=== PATIENT | male | born 1955 | race Caucasian/White ===

== ENCOUNTER 2020-07-08 11:11 | Outpatient (REF) | payer MEDICARE, SELFPAY ==
--- NOTE | 2020-07-08 | US_ITS ---
EXAMINATION: US RETROPERITONEAL LIMITED (RENAL ONLY) CLINICAL INFORMATION: Renal calculi. Renal cyst. COMPARISON: Renal ultrasound 12/11/2018 and 11/23/2017. CT abdomen and pelvis 11/19/2009. TECHNIQUE: Real-time imaging of the kidneys. FINDINGS: RIGHT KIDNEY: 11.3 x 5.5 x 6.2 cm (SAG x AP x TRV). The kidney is normal in size, contour, and echogenicity. Renal cortical thickness is normal. No visible renal calculi. No hydronephrosis. There is a simple cyst upper pole measuring 2.0 x 1.9 x 2.0 cm. Prior measurements are 1.6 x 1.5 x 1.5 cm on ultrasound 2019. LEFT KIDNEY: 11.9 x 6.0 x 5.8 cm (SAG x AP x TRV). The kidney is normal in size, contour, and echogenicity. Renal cortical thickness is normal. No visible calculi or focal parenchymal lesions. No hydronephrosis. IMPRESSION: 1. No hydronephrosis or caliectasis. No visible renal calculi. 2. Simple cyst upper pole right kidney 2.0 cm.
== END 2020-07-08 11:12 | disposition home or self-care (01) ==
LOC: HO.HMGCX 11:11
PROVIDERS: PCP Nurse Practitioner Family; Visit Provider Urology
DX: N28.1 Cyst of kidney, acquired (principal); Z87.442 Personal history of urinary calculi
CPT/HCPCS: 76775

== ENCOUNTER 2020-07-13 12:30 | Outpatient (REF) | payer MEDICARE, SELFPAY | END 2020-07-13 12:31 | disposition home or self-care (01) | LOC: HO.HMGCLDS 12:30 | PROVIDERS: Absent Provider Internal Medicine; PCP Nurse Practitioner Family; Visit Provider Urology | DX: Z20.828 Contact with and (suspected) exposure to other viral communicable diseases (principal); N40.1 Benign prostatic hyperplasia with lower urinary tract symptoms | CPT/HCPCS: 84153; 87635 ==

== ENCOUNTER 2021-01-25 15:17 | Inpatient (IN) | payer MEDICARE, SELFPAY ==
--- NOTE | ~2021-01-25 | US_ITS ---
EXAMINATION: US VENOUS ULTRASOUND WITH DOPPLER LOWER EXTREMITY, LEFT CLINICAL INFORMATION: Swelling pain evaluate for DVT COMPARISON: None TECHNIQUE: Ultrasound of the deep veins is performed from the hip to the calf with compression sonography and color and pulse Doppler assessment. Spectral analysis with color-flow imaging is performed. FINDINGS: There is normal venous compression and respiratory variation and augmented flow. The visualized common femoral vein, superficial femoral vein, profunda femoral vein, popliteal vein, and the trifurcation region shows no evidence of deep venous thrombosis. There is no significant popliteal fossa cyst. Lymph node measuring 2.4 x 1 x 1.9 cm likely benign and reactive. If the patient's symptoms persist, followup ultrasound in 5 days 7 days might be of value to exclude proximal propagation from a non-visualized calf vein. US/US venous duplex LE IMPRESSION: No DVT demonstrated in the left lower extremity.
--- NOTE | ~2021-01-25 | CT_ITS ---
EXAMINATION: CT ABDOMEN AND PELVIS WITH CONTRAST CLINICAL INFORMATION: Vomiting and alcohol use. COMPARISON: Renal ultrasound 07/08/[address] abdomen pelvis 11/19/2009 TECHNIQUE: Multidetector volumetric images were obtained from the superior aspect of the liver through the pubic symphysis following administration 85 mL of Omnipaque 350 intravenous contrast. Sagittal and coronal reformatted images were obtained on the technologist's workstation. Oral contrast: No This CT examination was performed using dose optimization techniques as appropriate, variously including the following: *Automated exposure control *Adjustment of mA and/or kV according to patient size (this includes techniques or standardized protocols for targeted exams where dose is matched to indication/reason for exam; i.e. extremities or head) *Use of iterative reconstruction technique DLP: 712 mGy-cm FINDINGS: Visualized lung bases demonstrate mild dependent atelectasis. The liver is normal in size but demonstrates severely decreased attenuation diffusely. The gallbladder is normal in appearance. Fatty atrophy of the pancreas. The spleen and adrenal glands are unremarkable. Symmetrically enhancing kidneys without hydronephrosis. 2 cm right renal cyst again identified. Small hiatal hernia. Normal caliber loops of small and large bowel. Moderate colonic diverticulosis without CT evidence to suggest active diverticulitis. Normal appendix. Normal caliber abdominal aorta. No retroperitoneal lymphadenopathy. The bladder is mildly distended but otherwise normal in appearance. The prostate gland is normal in size. No gross free pelvic fluid. Small bilateral fat-containing inguinal hernias. Shotty bilateral inguinal lymph nodes. Mild diffuse degenerative changes of. Tiny sacral sclerotic density is stable and therefore benign. CT/CT abdomen pelvis w con IMPRESSION: 1. Severely decreased liver attenuation suggesting hepatic steatosis. Correlation with liver enzymes recommended. 2. Small right renal cyst. 3. Moderate colonic diverticulosis without CT evidence to suggest active diverticulitis.
--- NOTE | ~2021-01-25 | XR_ITS ---
EXAMINATION: XR CHEST CLINICAL INFORMATION: Dizziness COMPARISON: None TECHNIQUE: 2 views of the chest were obtained. FINDINGS: The lungs are well-expanded and clear. The heart size and pulmonary vascularity is normal. There is mild spondylosis dorsal spine. No lytic process. XR/XR chest 2V IMPRESSION: No acute cardiopulmonary process seen.
--- NOTE | ~2021-01-25 | CT_ITS ---
EXAMINATION: CT HEAD WITHOUT CONTRAST CLINICAL INFORMATION: Dizziness. COMPARISON: None TECHNIQUE: Contiguous axial imaging was performed from the skull base to vertex without intravenous administration of contrast. This CT examination was performed using dose optimization techniques as appropriate, variously including the following: *Automated exposure control *Adjustment of mA and/or kV according to patient size (this includes techniques or standardized protocols for targeted exams where dose is matched to indication/reason for exam; i.e. extremities or head) *Use of iterative reconstruction technique DLP: 1521 mGy-cm FINDINGS: There is no evidence of acute intracranial hemorrhage or territorial infarction. No abnormal mass effect or midline shift is seen. Chin to white matter differentiation is well preserved. No extra-axial fluid collections are identified. The ventricles are normal in size. There is mild periventricular hypoattenuation especially in frontoparietal lobes without mass effect. The osseous structures and soft tissues are normal. There is a small polyp or retention cyst floor of left maxillary sinus. Rest of the paranasal sinuses and mastoid air cells are well-aerated.. CT/CT head/brain wo con IMPRESSION: No acute intracranial process seen.
[2021-01-25 15:29] VITALS: BP 151/92; BP 155/107; PULSE 94; PULSE 96; RESP 20; TEMP 37.4; O2SAT 95; O2SAT 98; BMI 32.5
--- NOTE | 2021-01-25 15:48 | ECG_ITS ---
Test Reason : ABDOMINAL PAIN Blood Pressure : / mmHG Vent. Rate : 093 BPM Atrial Rate : 093 BPM P-R Int : 162 ms QRS Dur : 096 ms QT Int : 378 ms P-R-T Axes : 064 000 051 degrees QTc Int : 469 ms Normal sinus rhythm Nonspecific T wave abnormality Borderline ECG Abnormal ECG When compared with ECG of 04-NOV-2014 22:25, T wave inversion now evident in Lateral leads Referred By: Candice Reece Electronically Signed By:JORGE MCKINNEY
--- NOTE | 2021-01-25 15:51 | ED_ITS ---
HPI - Abdominal Pain General Chief Complaint: Abdominal Pain Stated Complaint: ABD PAIN,NAUSEA Time Seen by Provider: 01/25/21 15:23 Source: patient Mode of arrival: ambulatory Limitations: no limitations History of Present Illness HPI narrative: 65-year-old male with a past medical history of GERD, alcohol use here with complaints of intermittent abdominal pain, vomiting, diarrhea for the last 2-3 weeks. The patient is also complaining of feeling lightheaded with position changes and moving around. He denies any headache, vision changes, chest pain, shortness of breath, cough. The patient tells me he drinks about 1 bottle of wine every day and occasionally he has a beer. His last drink was this morning. He denies any withdrawal symptoms from alcohol in the past. Seen at Urgent Care and sent in for further evaluation. Related Data Home Medications Medication Instructions Recorded Confirmed omeprazole 20 mg capsule,delayed 20 mg PO DAILY 01/25/21 01/25/21 release Allergies Allergy/AdvReac Type Severity Reaction Status Date / Time amoxicillin [AMOXICILLIN] Allergy Unknown UNKNOWN, Verified 01/25/21 19:10 nausea and vomiting penicillin V Allergy Unknown rash Verified 01/25/21 19:10 Penicillins [PENICILLINS] Allergy Unknown UNKNOWN Verified 01/25/21 19:10 Erythromycin Allergy Unknown Rash Uncoded 01/25/21 19:10 Review of Systems Review of Systems Yes all other systems are reviewed and are negative Constitutional: Reports no additional constitutional complaints, Denies body ache(s), Denies chills, Denies fever(s), Denies headache(s) and Denies weakness Eyes: Reports no additional eye complaints and Denies change in vision Reports system reviewed and no additional complaints, except as documented, Reports dizziness, Denies headache(s), Denies nasal congestion, Denies nasal discharge and Denies neck pain Cardiovascular: Reports no additional cardiovascular complaints, Denies chest pain, Denies leg edema and Denies dyspnea Respiratory: Reports no additional respiratory complaints, Denies cough and Denies dyspnea Gastrointestinal: Reports no additional gastrointestinal complaints, Reports abdominal pain, Denies melena, Denies hematochezia, Denies coffee ground emesis, Reports diarrhea, Reports nausea, Reports vomiting and Denies hematemesis Genitourinary: Denies urinary incontinence Musculoskeletal: Reports no additional musculoskeletal complaints, Denies back pain, Denies arthralgias, Denies joint swelling, Denies neck pain, Denies numbness and Denies tingling Skin/Breast: Reports system reviewed and no additional complaints, except as doc u and Denies rash Reports system reviewed and no additional complaints, except as documented, Denies Abnormal speech present, Reports dizziness, Denies headache(s), Denies numbness, Denies tingling and Denies weakness Physical Exam Vital Signs: Vital Signs: Last Vital Signs Temp 99.2 F 01/25/21 19:06 Pulse 96 01/25/21 19:06 Resp 24 H 01/25/21 19:06 BP 145/80 H 01/25/21 19:06 Pulse Ox 98 01/25/21 19:06 Body Mass Index 32.5 Const: General: cooperative, healthy appearing, comfortable and no acute distress Orientation/consciousness: patient oriented x3 Limitations: no limitations HENMT: Head: Yes normal to inspection Ears: hearing grossly normal bilaterally General nose exam: Normal external nose present Face and sinus: Yes normal facial exam Mouth: Normal oral and palatal mucosa present Throat: Yes posterior oropharynx normal Eyes: General: appearance normal, both eyes and all related structures Conjunctivae: conjunctival abnormal (mild icteria) Pupils: Equal, round and reactive pupils present Neck: Neck: Yes normal visual inspection Chest: Chest palpation & inspection: normal inspection of the chest Resp: Effort & Inspection: normal respiratory effort Auscultation: clear to auscultation bilaterally Cardio: Rate: regular rate Rhythm: regular rhythm Peripheral pulses: Peripheral pulses 2+ throughout GI: Other: mild distention Inspection: Yes normal to inspection Palpation (GI): Firmness to palpation present (GI) and nontender Auscultation: normal bowel sounds Back/Spine/Pelvis: Thoracic/Lumbar Spine: thoracic and lumbar spine normal to inspection Skin: General skin exam: no rashes or lesions noted Neuro: Other: +mild tremor bilateral hands General: patient oriented x3, no focal motor deficits and normal sensation to monofilament Cranial nerves: Yes CN's II-XII intact bilaterally, Yes Equal, round and reactive pupils present, Yes Bilaterally intact EOM present, Yes Nystagmus not present, Yes Normal facial strength present and Yes Midline tongue present Cognition (Neuro): normal cognition Speech: No Abnormal speech present Gait exam (Neuro): Other gait observations present (unable to assess-patient unable to perform) Motor exam (neuro): 5/5 motor strength present throughout Sensory Exam: Normal double simultaneous stimulation for sensation Coordination: [id number] test norm al and [id number] test normal Extrem: General: Yes normal to inspection, Yes no calf tenderness and Yes edema (left calf swelling, discoloration of the skin. +pulses distal) Course Course Course Narrative: 65-year-old male with a past medical history of GERD, alcohol use here with complaints of intermittent abdominal pain with associated vomiting and diarrhea times several weeks with dizziness which is worse with position changes for the last few weeks as well. Seen at Urgent Care and sent in for further evaluation to the emergency department. There was concern that he may be withdrawing from alcohol due to reports of daily use with heart rate of 105 and blood pressure 182/104 noted at Urgent Care with mild tremor bilaterally. Neuro exam is benign with the exception of being unable to assess the patient's gait. He was able to stay and was very unsteady and complained feeling very dizzy and lightheaded. His abdomen is mildly distended with some slight scleral icterus. No focal abdominal pain on exam. Also does have some left lower extremity swelling with discoloration. No tenderness. Will check ultrasound to rule out DVT. Will need labs, EKG, orthostatics, chest x-ray, CT head 1756-ultrasound negative for DVT. Labs show hyponatremia, hypochloremia. La ctic acid elevated. No leukocytosis or fever. This is from dehydration and not infection. Will discuss with nephrology in regards to the hyponatremia. Patient has received 1 L of normal saline. Added on a serum osmolality, urine studies. ? Secondary to GI losses versus alcohol use. 1839-spoke to Dr. Shi from Nephrology. Recommended fluid restriction 1500 cc per 24 hours. Recommended rechecking sodium after fluid bolus and then routinely after. 2014-CT head negative. Ct A/P shows hepatic steatosis otherwise negative. Abdominal pain and vomiting likely secondary to gastritis from alcohol abuse. Dizziness described as lightheadedness likely secondary to hyponatremia and electrolyte disturbance. Repeat sodium pending. Call out to medicine to admit. 2039-Discussed with Dr Parks who accepted admission. MDM - Abdominal Pain MDM Narrative Medical decision making narrative: ich vs lesion vs cva, electrolyte abnormality, anemia, orthostatic hypotension DVT Differential Diagnosis Differential diagnosis: Likely gastroenteritis, gastritis and pancreatitis Medical Records Attestation: I reviewed the patient's medical records. Lab Data Attestation: I reviewed the patient's lab results. Result diagrams: 01/25/21 16:19 01/25/21 16:19 Labs: Lab Results 01/25/21 01/25/21 01/25/21 Range/Units 16:19 16:19 16:19 WBC 5.9 (4.8-10.8) X10*3/uL RBC 4.32 L (4.60-5.80) X10*6/uL Hgb 13.7 L (14.0-18.0) g/dl Hct 38.0 L (42-52) % MCV 88.0 (80-98) fL MCH 31.7 (27.0-33.0) pg MCHC 36.1 H (31.0-36.0) g/dl RDW 13.2 (11.0-16.0) % Plt Count 75 L (160-400) X10*3/uL MPV 9.9 (9.4-12.4) fL Immature Gran % (Auto) 0.7 H (0.0-0.4) % Neut % (Auto) 89.6 H (45-73) % Lymph % (Auto) 3.9 L (20-40) % [facility] [place] [facility] % (Auto) 5.8 (2-11) % Eos % (Auto) 0.0 (0-4) % Baso % (Auto) 0.0 (0-2) % Lymph # (Auto) 0.2 L (1.2-4.9) X10*3/uL [facility] [place] [facility] # (Auto) 0.3 (0.1-1.2) X10*3/uL Eos # (Auto) 0.0 (0.0-0.4) X10*3/uL Baso # (Auto) 0.0 (0.0-0.2) X10*3/uL Abs Immat Gran (auto) 0.04 H (0.00-0.03) X10*3/uL Absolute Neuts (auto) 5.3 (2.0-8.3) X10*3/uL Absolute Nucleated RBC 0.000 (0.0-0.012) X10*3/uL Nucleated RBC % (auto) 0.0 (0.0-0.2) /100WBC Smear Tech's Comments VERIFIED PT (10.8-13.0) SEC INR (0.9-1.1) APTT (24.1-38.0) SEC Sodium 122 L (135-145) mmol/L Potassium 4.2 (3.3-5.1) mmol/L Chloride 78 L (96-108) mmol/L Carbon Dioxide 27 (22-29) mmol/L Anion Gap 21 H (12-20) BUN 8 L (9-16) mg/dL Creatinine 0.72 (0.5-1.4) mg/dL Estim Creat Clear Calc 112.5 Estimated GFR > 60 Random Glucose 112 (60-115) mg/dL Osmolality (281-305) mosm/kg Lactic Acid (0.5-2.0) mmol/L Lactic Acid Fup @ 2Hr (0.5-2.0) mmol/L Calcium 8.6 (8.4-10.2) mg/dL Phosphorus 3.7 (2.7-4.5) mg/dL Magnesium 1.8 (1.6-2.6) mg/dL Total Bilirubin 1.3 H (0.0-1.0) mg/dL Direct Bilirubin 0.7 H (0.0-0.5) mg/dL AST 120 H (5-37) U/L ALT 94 H (0-40) U/L Alkaline Phosphatase 75 (39-117) U/L Troponin I High Sens 6.8 (<3.5-35.0) ng/L B-Natriuretic Peptide 20 (<100) pg/mL Total Protein 6.7 (6.5-8.0) g/dL Albumin 4.1 (3.5-5.0) g/dL Lipase 28 (8-78) U/L Salicylates (15-30) mg/dL Acetaminophen (<30) mcg/mL Ethyl Alcohol mg/dL COVID-19 (ANOOP) (Negative) COVID-19 Clin Com 01/25/21 01/25/21 01/25/21 Range/Units 16:19 16:19 16:19 WBC (4.8-10.8) X10*3/uL RBC (4.60-5.80) X10*6/uL Hgb (14.0-18.0) g/dl Hct (42-52) % MCV (80-98) fL MCH (27.0-33.0) pg MCHC (31.0-36.0) g/dl RDW (11.0-16.0) % Plt Count (160-400) X10*3/uL MPV (9.4-12.4) fL Immature Gran % (Auto) (0.0-0.4) % Neut % (Auto) (45-73) % Lymph % (Auto) (20-40) % [facility] % (Auto) (2-11) % Eos % (Auto) (0-4) % Baso % (Auto) (0-2) % Lymph # (Auto) (1.2-4.9) X10*3/uL [facility] # (Auto) (0.1-1.2) X10*3/uL Eos # (Auto) (0.0-0.4) X10*3/uL Baso # (Auto) (0.0-0.2) X10*3/uL Abs Immat Gran (auto) (0.00-0.03) X10*3/uL Absolute Neuts (auto) (2.0-8.3) X10*3/uL Absolute Nucleated RBC (0.0-0.012) X10*3/uL Nucleated RBC % (auto) (0.0-0.2) /100WBC Smear Tech's Comments PT 11.7 (10.8-13.0) SEC INR 1.0 (0.9-1.1) APTT 28.7 (24.1-38.0) SEC Sodium (135-145) mmol/L Potassium (3.3-5.1) mmol/L Chloride (96-108) mmol/L Carbon Dioxide (22-29) mmol/L Anion Gap (12-20) BUN (9-16) mg/dL Creatinine (0.5-1.4) mg/dL Estim Creat Clear Calc Estimated GFR Random Glucose (60-115) mg/dL Osmolality 272 L (281-305) mosm/kg Lactic Acid (0.5-2.0) mmol/L Lactic Acid Fup @ 2Hr (0.5-2.0) mmol/L Calcium (8.4-10.2) mg/dL Phosphorus (2.7-4.5) mg/dL Magnesium (1.6-2.6) mg/dL Total Bilirubin (0.0-1.0) mg/dL Direct Bilirubin (0.0-0.5) mg/dL AST (5-37) U/L ALT (0-40) U/L Alkaline Phosphatase (39-117) U/L Troponin I High Sens (<3.5-35.0) ng/L B-Natriuretic Peptide (<100) pg/mL Total Protein (6.5-8.0) g/dL Albumin (3.5-5.0) g/dL Lipase (8-78) U/L Salicylates (15-30) mg/dL Acetaminophen (<30) mcg/mL Ethyl Alcohol 65 mg/dL COVID-19 (ANOOP) (Negative) COVID-19 Clin Com 01/25/21 01/25/21 01/25/21 Range/Units 16:20 16:20 19:15 WBC (4.8-10.8) X10*3/uL RBC (4.60-5.80) X10*6/uL Hgb (14.0-18.0) g/dl Hct (42-52) % MCV (80-98) fL MCH (27.0-33.0) pg MCHC (31.0-36.0) g/dl RDW (11.0-16.0) % Plt Count (160-400) X10*3/uL MPV (9.4-12.4) fL Immature Gran % (Auto) (0.0-0.4) % Neut % (Auto) (45-73) % Lymph % (Auto) (20-40) % [facility] % (Auto) (2-11) % Eos % (Auto) (0-4) % Baso % (Auto) (0-2) % Lymph # (Auto) (1.2-4.9) X10*3/uL [facility] # (Auto) (0.1-1.2) X10*3/uL Eos # (Auto) (0.0-0.4) X10*3/uL Baso # (Auto) (0.0-0.2) X10*3/uL Abs Immat Gran (auto) (0.00-0.03) X10*3/uL Absolute Neuts (auto) (2.0-8.3) X10*3/uL Absolute Nucleated RBC (0.0-0.012) X10*3/uL Nucleated RBC % (auto) (0.0-0.2) /100WBC Smear Tech's Comments PT (10.8-13.0) SEC INR (0.9-1.1) APTT (24.1-38.0) SEC Sodium (135-145) mmol/L Potassium (3.3-5.1) mmol/L Chloride (96-108) mmol/L Carbon Dioxide (22-29) mmol/L Anion Gap (12-20) BUN (9-16) mg/dL Creatinine (0.5-1.4) mg/dL Estim Creat Clear Calc Estimated GFR Random Glucose (60-115) mg/dL Osmolality (281-305) mosm/kg Lactic Acid 2.9 H* (0.5-2.0) mmol/L Lactic Acid Fup @ 2Hr (0.5-2.0) mmol/L Calcium (8.4-10.2) mg/dL Phosphorus (2.7-4.5) mg/dL Magnesium (1.6-2.6) mg/dL Total Bilirubin (0.0-1.0) mg/dL Direct Bilirubin (0.0-0.5) mg/dL AST (5-37) U/L ALT (0-40) U/L Alkaline Phosphatase (39-117) U/L Troponin I High Sens (<3.5-35.0) ng/L B-Natriuretic Peptide (<100) pg/mL Total Protein (6.5-8.0) g/dL Albumin (3.5-5.0) g/dL Lipase (8-78) U/L Salicylates < 5.0 L (15-30) mg/dL Acetaminophen < 1 (<30) mcg/mL Ethyl Alcohol mg/dL COVID-19 (ANOOP) Negative (Negative) COVID-19 Clin Com See Note 01/25/21 Range/Units 19:15 WBC (4.8-10.8) X10*3/uL RBC (4.60-5.80) X10*6/uL Hgb (14.0-18.0) g/dl Hct (42-52) % MCV (80-98) fL MCH (27.0-33.0) pg MCHC (31.0-36.0) g/dl RDW (11.0-16.0) % Plt Count (160-400) X10*3/uL MPV (9.4-12.4) fL Immature Gran % (Auto) (0.0-0.4) % Neut % (Auto) (45-73) % Lymph % (Auto) (20-40) % [facility] % (Auto) (2-11) % Eos % (Auto) (0-4) % Baso % (Auto) (0-2) % Lymph # (Auto) (1.2-4.9) X10*3/uL [facility] # (Auto) (0.1-1.2) X10*3/uL Eos # (Auto) (0.0-0.4) X10*3/uL Baso # (Auto) (0.0-0.2) X10*3/uL Abs Immat Gran (auto) (0.00-0.03) X10*3/uL Absolute Neuts (auto) (2.0-8.3) X10*3/uL Absolute Nucleated RBC (0.0-0.012) X10*3/uL Nucleated RBC % (auto) (0.0-0.2) /100WBC Smear Tech's Comments PT (10.8-13.0) SEC INR (0.9-1.1) APTT (24.1-38.0) SEC Sodium (135-145) mmol/L Potassium (3.3-5.1) mmol/L Chloride (96-108) mmol/L Carbon Dioxide (22-29) mmol/L Anion Gap (12-20) BUN (9-16) mg/dL Creatinine (0.5-1.4) mg/dL Estim Creat Clear Calc Estimated GFR Random Glucose (60-115) mg/dL Osmolality (281-305) mosm/kg Lactic Acid (0.5-2.0) mmol/L Lactic Acid Fup @ 2Hr 1.7 (0.5-2.0) mmol/L Calcium (8.4-10.2) mg/dL Phosphorus (2.7-4.5) mg/dL Magnesium (1.6-2.6) mg/dL Total Bilirubin (0.0-1.0) mg/dL Direct Bilirubin (0.0-0.5) mg/dL AST (5-37) U/L ALT (0-40) U/L Alkaline Phosphatase (39-117) U/L Troponin I High Sens (<3.5-35.0) ng/L B-Natriuretic Peptide (<100) pg/mL Total Protein (6.5-8.0) g/dL Albumin (3.5-5.0) g/dL Lipase (8-78) U/L Salicylates (15-30) mg/dL Acetaminophen (<30) mcg/mL Ethyl Alcohol mg/dL COVID-19 (ANOOP) (Negative) COVID-19 Clin Com Imaging Data Venous US: Attestation: I personally reviewed and interpreted this imaging study as follows: Radiologist's impression: EXAMINATION: US VENOUS ULTRASOUND WITH DOPPLER LOWER EXTREMITY, LEFT CLINICAL INFORMATION: Swelling pain evaluate for DVT COMPARISON: None TECHNIQUE: Ultrasound of the deep veins is performed from the hip to the calf with compression sonography and color and pulse Doppler assessment. Spectral analysis with color-flow imaging is performed. FINDINGS: There is normal venous compression and respiratory variation and augmented flow. The visualized common femoral vein, superficial femoral vein, profunda femoral vein, popliteal vein, and the trifurcation region shows no evidence of deep venous thrombosis. There is no significant popliteal fossa cyst. Lymph node measuring 2.4 x 1 x 1.9 cm likely benign and reactive. If the patient's symptoms persist, followup ultrasound in 5 days 7 days might be of value to exclude proximal propagation from a non-visualized calf vein. US/US venous duplex LE LT IMPRESSION: No DVT demonstrated in the left lower extremity. Chest x-ray: Attestation: I personally reviewed and interpreted this imaging study as follows: Radiologist's impression: EXAMINATION: XR CHEST CLINICAL INFORMATION: Dizziness COMPARISON: None TECHNIQUE: 2 views of the chest were obtained. FINDINGS: The lungs are well-expanded and clear. The heart size and pulmonary vascularity is normal. There is mild spondylosis dorsal spine. No lytic process. XR/XR chest 2V IMPRESSION: No acute cardiopulmonary process seen. CT scan - head: Attestation: I personally reviewed and interpreted this imaging study as follows: Radiologist's impression: EXAMINATION: CT HEAD WITHOUT CONTRAST CLINICAL INFORMATION: Dizziness. COMPARISON: None TECHNIQUE: Contiguous axial imaging was performed from the skull base to vertex without intravenous administration of contrast. This CT examination was performed using dose optimization techniques as appropriate, variously including the following: *Automated exposure control *Adjustment of mA and/or kV according to patient size (this includes techniques or standardized protocols for targeted exams where dose is matched to indication/reason for exam; i.e. extremities or head) *Use of iterative reconstruction technique DLP: 1521 mGy-cm FINDINGS: There is no evidence of acute intracranial hemorrhage or territorial infarction. No abnormal mass effect or midline shift is seen. Chin to white matter differentiation is well preserved. No extra-axial fluid collections are identified. The ventricles are normal in size. There is mild periventricular hypoattenuation especially in frontoparietal lobes without mass effect. The osseous structures and soft tissues are normal. There is a small polyp or retention cyst floor of left maxillary sinus. Rest of the paranasal sinuses and mastoid air cells are well-aerated.. CT/CT head/brain wo con IMPRESSION: No acute intracranial process seen. CT scan - abdomen: Attestation: I personally reviewed and interpreted this imaging study as follows: Radiologist's impression: IMPRESSION: 1. Severely decreased liver attenuation suggesting hepatic steatosis. Correlation with liver enzymes recommended. 2. Small right renal cyst. 3. Moderate colonic diverticulosis without CT evidence to suggest active diverticulitis. ECG Data Attestation: I personally reviewed and interpreted this ECG as follows: ECG interpretation date: 01/25/21 ECG interpretation time: 17:59 Interpretation: Normal sinus rhythm. Nonspecific ST changes. Prolonged qt4-6 9. Normal WA, normal QRS Discharge Plan Discharge Clinical Impression: Nausea & vomiting, Dizziness, Acute hyponatremia, Alcohol abuse Patient Disposition: Admitted As Inpatient [facility] Past Medical History Attestation statement: The following information was validated with the patient. Source: old records reviewed and nursing notes reviewed Medical History Asthma GERD (gastroesophageal reflux disease) Social History Social History (Updated 01/25/21 @ 16:07 by Candice Chevy, ELECT[employer] LOGGING OPERATOR) Alcohol intake: current Alcohol intake frequency: a few times a week Alcohol type: wine Smoking Status: Never smoker Use of substances other than those prescribed or required for medical reasons: No Advance Directives: No Advance Directives Information Provided: Yes
[2021-01-25 16:36] LABS: Imm Gran Abs Auto 0.04 X10*3/uL (0.00-0.03); Imm Gran Pct Auto 0.7 % (0.0-0.4); MANUAL DIFF FLAG SCAN; PLT CLUMP 1; Red Blood Count 4.32 X10*6/uL (4.60-5.80); Red Cell Distribution Width 13.2 % (11.0-16.0); SCAN SMEAR FLAG 1
[2021-01-25 16:38] LABS: Hemoglobin 13.7 g/dl (14.0-18.0); Lymphocytes Absolute Auto 0.2 X10*3/uL (1.2-4.9); Lymphocytes Percent Auto 3.9 % (20-40); Mean Corpuscular HGB Conc 36.1 g/dl (31.0-36.0); Mean Corpuscular Hemoglobin 31.7 pg (27.0-33.0); Mean Platelet Volume 9.9 fL (9.4-12.4); Monocytes Absolute Auto 0.3 X10*3/uL (0.1-1.2); Monocytes Percent Auto 5.8 % (2-11); Neutrophils Absolute Auto 5.3 X10*3/uL (2.0-8.3); Neutrophils Percent Auto 89.6 % (45-73); Platelet Count 75 X10*3/uL (160-400); White Blood Count 5.9 X10*3/uL (4.8-10.8)
[2021-01-25 16:51] LABS: Prothrombin Time 11.7 SEC (10.8-13.0)
[2021-01-25 16:54] LABS: Partial Thromboplastin Time 28.7 SEC (24.1-38.0)
[2021-01-25 16:56] LABS: Ethanol 65 mg/dL
[2021-01-25 16:57] LABS: Acetaminophen LAB < 1 mcg/mL (<30); Salicylate < 5.0 mg/dL (15-30)
[2021-01-25 16:59] LABS: Lactic Acid 2.9 mmol/L (0.5-2.0)
[2021-01-25 17:01] LABS: B Type Natriuretic Peptide 20 pg/mL (<100); Troponin-I High Sensitivity 6.8 ng/L (<3.5-35.0)
[2021-01-25 17:07] LABS: SLIDE REVIEW VERIFIED
[2021-01-25 17:15] LABS: Alanine Aminotransferase 94 U/L (0-40); Albumin Level 4.1 g/dL (3.5-5.0); Alkaline Phosphatase 75 U/L (39-117); Anion Gap 21 (12-20); Aspartate Amino Transferase 120 U/L (5-37); Bilirubin Direct 0.7 mg/dL (0.0-0.5); Bilirubin Total 1.3 mg/dL (0.0-1.0); Blood Urea Nitrogen 8 mg/dL (9-16); Calcium 8.6 mg/dL (8.4-10.2); Carbon Dioxide 27 mmol/L (22-29); Chloride 78 mmol/L (96-108); Creatinine Clr Calc Pharmacy 112.5; Estimated Glomerular Filt Rate > 60; Glucose Random 112 mg/dL (60-115); Lipase 28 U/L (8-78); Magnesium 1.8 mg/dL (1.6-2.6); Potassium 4.2 mmol/L (3.3-5.1); Sodium 122 mmol/L (135-145); Total Protein 6.7 g/dL (6.5-8.0)
[2021-01-25] MEDS: 0.9 % Sodium Chloride 1,000 ML 999 ML IV (17:25)
[2021-01-25] MEDS: LORazepam 2 MG/ML VIAL IVPUSH ×2 (17:25→20:11)
[2021-01-25] MEDS: ondansetron HCL 4 MG/2 ML VIAL IVPUSH (17:25)
[2021-01-25 18:08] LABS: Osmolality, Serum 272 mosm/kg (281-305); Phosphorus 3.7 mg/dL (2.7-4.5)
[2021-01-25 18:09] VITALS: BP 150/60; PULSE 68; RESP 16; O2SAT 98
--- NOTE | 2021-01-25 18:10 | PC.NURSE ---
pt is caox4. abd is firm and distended with no tenderness, rebound tenderness or discoloration bowel sounds are normal X4 quad and pt denies discomfort. awaiting ct scan.
[2021-01-25 18:33] LABS: Reflex Lactate? Lactic Acid Added
[2021-01-25 19:06] VITALS: BP 145/80; PULSE 96; RESP 24; TEMP 37.3; O2SAT 98
[2021-01-25] MEDS: iohexoL 350 MG/ML 100 ML INFUS..BTL IV (19:11)
--- NOTE | 2021-01-25 19:21 | PC.NURSE ---
Pt aaox4, resting on stretcher in NAD, just returned from CT for abd CT. Pt CIWA as documented, offers no additional complaints at this time. Pt RR even and unlabored on RA, VSS. Pt stretcher in lowest locked position with rails raised, call hill within reach. All needs met at this time.
[2021-01-25 19:38] LABS: COVID-19 Test Negative (Negative)
[2021-01-25 19:46] LABS: ~Lactic Acid-LAB USE ONLY 1.7 mmol/L (0.5-2.0)
[2021-01-25 20:39] LABS: Anion Gap 21 (12-20); Blood Urea Nitrogen 7 mg/dL (9-16); Calcium 7.9 mg/dL (8.4-10.2); Carbon Dioxide 23 mmol/L (22-29); Chloride 82 mmol/L (96-108); Creatinine Clr Calc Pharmacy 114.1; Estimated Glomerular Filt Rate > 60; Glucose Random 92 mg/dL (60-115); Potassium 3.8 mmol/L (3.3-5.1); Sodium 122 mmol/L (135-145)
--- NOTE | 2021-01-25 21:33 | P.HPHOSP_ITS ---
History of Present Illness Date of Service: 01/25/21 Chief Complaint: abdominal pain This is a 65-year-old male with past medical history of GERD, alcohol abuse who presents to the hospital with complaints of abdominal pain, nausea, vomiting, and diarrhea. Patient reports that his symptoms wound 2 days ago but worse today. He has not had any appetite or oral intake for the past 2 days. He has had multiple epi sodes of diarrhea vomiting. Abdominal pain is diffuse, 8/10, nonradiating.denies having any fever or chills, no recent sick contacts, no recent travel. No chest pain, no shortness of breath, no cough, no urinary symptoms and no lower extremity edema. On arrival to the ED patient hemodynamically stable with viral significant for temp of 99.3?, heart rate of 105, blood pressure 182/104, satting 95% on room air Labs are significant for a WBC count of 5.9, hemoglobin of 13.7, platelets of 75, sodium of 122 with no previous 1 for comparison, chloride of 82, anion gap of 21, BUN of 7, osmolality of 272, lactic acid of 2.9 which improved to 1.7, total bili of 1.3, direct bili of 0.7, AST of 120, ALT of 94, UA negative. UDS negative. COVID-[address] shows severely decreased liver attenuation to suggest strain hepatic steatosis. Small right renal cyst, moderate colonic diverticulosis without CT evidence of diverticulitis Past medical history is as prolonged confirmed with patient Review of Systems Review of Systems: Yes all other systems are reviewed and are negative [facility] Medical History Asthma GERD (gastroesophageal reflux disease) Pertinent family history: Diabetes and prostate cancer in father Social History Alcohol intake: current Alcohol intake frequency: a few times a week Alcohol type: wine Smoking Status: Never smoker Use of substances other than those prescribed or required for medical reasons: No Advance Directives: No Advance Directives Information Provided: Yes Meds Allergies Allergy/AdvReac Type Severity Reaction Status Date / Time amoxicillin [AMOXICILLIN] Allergy Unknown UNKNOWN, Verified 01/25/21 19:10 nausea and vomiting penicillin V Allergy Unknown rash Verified 01/25/21 19:10 Penicillins [PENICILLINS] Allergy Unknown UNKNOWN Verified 01/25/21 19:10 Erythromycin Allergy Unknown Rash Uncoded 01/25/21 19:10 Active Medications: Current Medications Generic Name Dose Route Start Last Admin Trade Name Miguel PRN Reason Stop Dose Admin Pharmacy Consult 1 each 01/25/21 17:40 Consult Rx Perform Med Rec MISCELLANE ONCE PRN Consult order Home Medications Medication Instructions Recorded Confirmed Last Taken Type omeprazole 20 mg capsule,delayed 20 mg PO DAILY 01/25/21 01/25/21 01/23/21 History release Physical Exam Vital Signs and Narrative: Vital Signs: Last Vital Signs Temp 99.2 F 01/25/21 19:06 Pulse 96 01/25/21 19:06 Resp 24 H 01/25/21 19:06 BP 145/80 H 01/25/21 19:06 Pulse Ox 98 01/25/21 19:06 Body Mass Index 32.5 Const: Other: Patient tremulous General: cooperative and no acute distress Orientation/consciousness: patient oriented x3 Eyes: General: appearance normal, both eyes and all related structures Resp: Effort & Inspection: normal respiratory effort and able to speak in complete sentences Cardio: Rate: regular rate Rhythm: regular rhythm GI: Palpation (GI): Soft to palpation Auscultation: normal bowel sounds Skin: General skin exam: no rashes or lesions noted Neuro: General: patient oriented x3 Cognition (Neuro): normal cognition Extrem: General: Yes normal to inspection and Yes no pedal edema Results Labs CBC and Chem 7: 01/25/21 16:19 01/25/21 19:46 Labs: Laboratory Results - last 24 hr 01/25/21 01/25/21 01/25/21 16:19 16:19 16:19 MCV 88.0 MCH 31.7 MCHC 36.1 H RDW 13.2 Plt Count 75 L MPV 9.9 Immature Gran % (Auto) 0.7 H Neut % (Auto) 89.6 H Lymph % (Auto) 3.9 L Edwards % (Auto) 5.8 Eos % (Auto) 0.0 Baso % (Auto) 0.0 Lymph # (Auto) 0.2 L Edwards # (Auto) 0.3 Eos # (Auto) 0.0 Baso # (Auto) 0.0 Abs Immat Gran (auto) 0.04 H Absolute Neuts (auto) 5.3 Absolute Nucleated RBC 0.000 Nucleated RBC % (auto) 0.0 Smear Tech's Comments VERIFIED PT INR APTT Anion Gap 21 H Estim Creat Clear Calc 112.5 Estimated GFR > 60 Random Glucose 112 Osmolality Lactic Acid Lactic Acid Fup @ 2Hr Calcium 8.6 Phosphorus 3.7 Magnesium 1.8 Total Bilirubin 1.3 H Direct Bilirubin 0.7 H AST 120 H ALT 94 H Alkaline Phosphatase 75 Troponin I High Sens 6.8 B-Natriuretic Peptide 20 Total Protein 6.7 Albumin 4.1 Lipase 28 Salicylates Acetaminophen Ethyl Alcohol COVID-19 (ANOOP) COVID-19 Nursing Home Quality Com 01/25/21 01/25/21 01/25/21 16:19 16:19 16:19 MCV MCH MCHC RDW Plt Count MPV Immature Gran % (Auto) Neut % (Auto) Lymph % (Auto) Edwards % (Auto) Eos % (Auto) Baso % (Auto) Lymph # (Auto) Edwards # (Auto) Eos # (Auto) Baso # (Auto) Abs Immat Gran (auto) Absolute Neuts (auto) Absolute Nucleated RBC Nucleated RBC % (auto) Smear Tech's Comments PT 11.7 INR 1.0 APTT 28.7 Anion Gap Estim Creat Clear Calc Estimated GFR Random Glucose Osmolality 272 L Lactic Acid Lactic Acid Fup @ 2Hr Calcium Phosphorus Magnesium Total Bilirubin Direct Bilirubin AST ALT Alkaline Phosphatase Troponin I High Sens B-Natriuretic Peptide Total Protein Albumin Lipase Salicylates Acetaminophen Ethyl Alcohol 65 COVID-19 (ANOOP) COVID-19 [employer] 01/25/21 01/25/21 01/25/21 16:20 16:20 19:15 MCV MCH MCHC RDW Plt Count MPV Immature Gran % (Auto) Neut % (Auto) Lymph % (Auto) Edwards % (Auto) Eos % (Auto) Baso % (Auto) Lymph # (Auto) Edwards # (Auto) Eos # (Auto) Baso # (Auto) Abs Immat Gran (auto) Absolute Neuts (auto) Absolute Nucleated RBC Nucleated RBC % (auto) Smear Tech's Comments PT INR APTT Anion Gap Estim Creat Clear Calc Estimated GFR Random Glucose Osmolality Lactic Acid 2.9 H* Lactic Acid Fup @ 2Hr Calcium Phosphorus Magnesium Total Bilirubin Direct Bilirubin AST ALT Alkaline Phosphatase Troponin I High Sens B-Natriuretic Peptide Total Protein Albumin Lipase Salicylates < 5.0 L Acetaminophen < 1 Ethyl Alcohol COVID-19 (ANOOP) Negative COVID-19 Clin Com See Note 01/25/21 01/25/21 19:15 19:46 MCV MCH MCHC RDW Plt Count MPV Immature Gran % (Auto) Neut % (Auto) Lymph % (Auto) Edwards % (Auto) Eos % (Auto) Baso % (Auto) Lymph # (Auto) Edwards # (Auto) Eos # (Auto) Baso # (Auto) Abs Immat Gran (auto) Absolute Neuts (auto) Absolute Nucleated RBC Nucleated RBC % (auto) Smear Tech's Comments PT INR APTT Anion Gap 21 H Estim Creat Clear Calc 114.1 Estimated GFR > 60 Random Glucose 92 Osmolality Lactic Acid Lactic Acid Fup @ 2Hr 1.7 Calcium 7.9 L D Phosphorus Magnesium Total Bilirubin Direct Bilirubin AST ALT Alkaline Phosphatase Troponin I High Sens B-Natriuretic Peptide Total Protein Albumin Lipase Salicylates Acetaminophen Ethyl Alcohol COVID-19 (ANOOP) COVID-19 Clin Com Imaging Radiologist's Impressions: Impressions Chest X-Ray 01/25/21 15:48 IMPRESSION: No acute cardiopulmonary process seen. Venous Duplex 01/25/21 15:48 IMPRESSION: No DVT demonstrated in the left lower extremity. Abdomen/Pelvis CT 01/25/21 17:39 IMPRESSION: 1. Severely decreased liver attenuation suggesting hepatic steatosis. Correlation with liver enzymes recommended. 2. Small right renal cyst. 3. Moderate colonic diverticulosis without CT evidence to suggest active diverticulitis. Head CT 01/25/21 17:39 IMPRESSION: No acute intracranial process seen. Assessment and Plan (1) Nausea & vomiting: Status: Acute (2) Abdominal pain: Qualifiers: Abdominal location: generalized Qualified Code(s): R10.84 - Generalized abdominal pain Status: Acute (3) Acute hyponatremia: Status: Acute (4) Alcohol abuse: Status: Acute (5) Lactic acidosis: Status: Acute This is a 65-year-old male with past medical history of GERD and alcohol abuse who presents to the hospital with complaints of abdominal pain nausea vomiting # abdominal pain nausea vomiting and diarrhea - most likely secondary to gastroenteritis - abdominal CT negative for any acute pathology - supportive measures with antiemetics, Tylenol - if continues to have diarrhea consider testing for C diff although has not been on any antibiotics recent or in hospital. # acute hyponatremia - most likely multifactorial secondary to diarrhea, as well as alcohol abuse - nephrology was consulted with the ED which recommended given 1 L of NS and then fluid restrict at 1500 cc - will follow BMP closely - further nephrology recommendation appreciated # alcohol abuse/withdrawal - patient received 4 mgOf Ativan in the ED - will start him on phenobarb protocol - thiamine and folic acid supplement # lactic acidosis - resolved - most likely secondary to dehydration # GERD - continue PPI DVT prophylaxis: Lovenox
[2021-01-25 22:16] VITALS: BP 132/82; PULSE 105; RESP 20; TEMP 37.2; O2SAT 95
[2021-01-25 23:16] VITALS: BP 155/89; PULSE 96; RESP 18; TEMP 37.6; O2SAT 95
[2021-01-25] MEDS: Enoxaparin Sodium 40 MG/0.4 ML SYRINGE SUBCUT (23:18)
[2021-01-25] MEDS: PHENobarbitaL sodium 130 MG/ML VIAL 325 MG IM (23:19)
[2021-01-25] MEDS: Omeprazole 20 MG CAPSULE.DR PO (23:19)
[2021-01-25 23:49] LABS: Glucose Urine UA NEG (NEG); Leukocyte Esterase Urine NEG (NEG); Nitrite Urine NEG (NEG); Specific Gravity - Urine 1.015 (1.005-1.025); Urine Blood TRACE (NEG); Urine Ketones 40 MG/DL (NEG); Urine Protein NEG (NEG-TRACE)
[2021-01-25 23:54] LABS: Appearance Urine CLEAR; Color Urine YELLOW
[2021-01-25 23:55] LABS: Bacteria Urine TRACE /LPF; RBC Urine 0-2 /HPF (0); Squamous Epithelial Cell Urine TRACE /LPF; WBC Urine 0-2 /HPF (0-4)
[2021-01-26] VITALS (10 sets, daily range): BP systolic 127–174; BP diastolic 72–101; PULSE 82–120; RESP 15–20; TEMP 36.4–37.2; O2SAT 94–98
[2021-01-26 00:09] LABS: Amphetamine Screen Urine Not Detected (Not Detect); Barbiturates, Urine Not Detected (Not Detect); Benzodiazepines Screen Urine Not Detected (Not Detect); Cannabinoid Screen Urine Not Detected (Not Detect); Cocaine Screen Urine Not Detected (Not Detect); Opiate Screen Urine Not Detected (Not Detect); Osmolality Urine 516 mosm/kg (373-1093); Phencyclidine Screen Urine Not Detected (Not Detect)
[2021-01-26 00:10] LABS: Creatinine Urine 88.87 mg/dL; Sodium Urine Random < 20.0 mmol/L
[2021-01-26 00:44] LABS: Uric Acid Urine Random 25.9 mg/dL
[2021-01-26] MEDS: PHENobarbitaL sodium 130 MG/ML VIAL 247 MG IM ×2 (01:42→04:08)
[2021-01-26 06:06] LABS: Eosinophils Percent Auto 0.2 % (0-4); Imm Gran Abs Auto 0.03 X10*3/uL (0.00-0.03); Imm Gran Pct Auto 0.7 % (0.0-0.4); MANUAL DIFF FLAG SCAN; Mean Platelet Volume 10.7 fL (9.4-12.4); Neutrophils Absolute Auto 3.1 X10*3/uL (2.0-8.3); PLT CLUMP 1; Red Cell Distribution Width 13.5 % (11.0-16.0); SCAN SMEAR FLAG 1
[2021-01-26 06:08] LABS: Basophils Percent Auto 0.2 % (0-2); Hematocrit 35.3 % (42-52); Hemoglobin 12.5 g/dl (14.0-18.0); Lymphocytes Absolute Auto 0.5 X10*3/uL (1.2-4.9); Lymphocytes Percent Auto 12.4 % (20-40); Mean Corpuscular HGB Conc 35.4 g/dl (31.0-36.0); Mean Corpuscular Hemoglobin 31.4 pg (27.0-33.0); Mean Corpuscular Volume 88.7 fL (80-98); Monocytes Absolute Auto 0.5 X10*3/uL (0.1-1.2); Monocytes Percent Auto 11.7 % (2-11); Neutrophils Percent Auto 74.8 % (45-73); Red Blood Count 3.98 X10*6/uL (4.60-5.80); White Blood Count 4.1 X10*3/uL (4.8-10.8)
[2021-01-26 06:09] LABS: Platelet Count 63 X10*3/uL (160-400)
[2021-01-26 06:45] LABS: SLIDE REVIEW VERIFIED
--- NOTE | 2021-01-26 07:31 | PC.NURSE ---
PT AWAKE, STANDING AT BEDSIDE, URINATED LARGE AMT ON FLOOR. LIQUID STOOL ALSO ON FLOOR. BKFST TRAY GIVEN
[2021-01-26] MEDS: Thiamine HCL 100 MG TABLET PO (08:52)
[2021-01-26] MEDS: Omeprazole 20 MG CAPSULE.DR PO (08:52)
[2021-01-26] MEDS: PHENobarbitaL 15 MG TABLET 45 MG PO ×2 (08:52→20:10)
[2021-01-26] MEDS: Folic Acid 1 MG TABLET PO (08:52)
--- NOTE | 2021-01-26 10:03 | P.CONNP_ITS ---
History of Present Illness Reason for Consult Consult date: 01/26/21 Reason for consult: hyponatremia Chief Complaint Chief complaint: hyponatremia History of Present Illness Narrative: Ask to see pT re HypoNa SNa 122 on adm and incr to 125 this am after 1 L NS and urine studies showed Car < 20 and eincr Uosm. He presented w H/O N/V/abd pain and was noted to have pos etoh on testing. He zhou heavy etoh use but is getting tx for poss w/drawl. Med history relatively unremarkable. Not on thiazides or NSAIDs. Adm to incr PO fluid intake over past several days. Choice of ETOH is wine NOT beer. CT abd/pelvis showed attenuation of liver---ques steatosis Overall feeling beter and abd pain decr. as is N/V. No H/O hypona in past. Review of Systems Review of Systems Yes all other systems are reviewed and are negative Constitutional: Reports no additional constitutional complaints, Denies body ache(s), Denies chills, Denies fever(s), Denies headache(s) and Denies weakness Eyes: Reports no additional eye complaints and Denies change in vision Reports system reviewed and no additional complaints, except as documented, Reports dizziness, Denies headache(s), Denies nasal congestion, Denies nasal discharge and Denies neck pain Cardiovascular: Reports no additional cardiovascular complaints, Denies chest pain, Denies leg edema and Denies dyspnea Respiratory: Reports no additional respiratory complaints, Denies cough and Denies dyspnea Gastrointestinal: Reports no additional gastrointestinal complaints, Reports abdominal pain, Denies melena, Denies hematochezia, Denies coffee ground emesis, Reports diarrhea, Reports nausea, Reports vomiting and Denies hematemesis Genitourinary: Denies urinary incontinence Musculoskeletal: Reports no additional musculoskeletal complaints, Denies back pain, Denies arthralgias, Denies joint swelling, Denies neck pain, Denies numbness and Denies tingling Skin/Breast: Reports system reviewed and no additional complaints, except as docu and Denies rash Reports system reviewed and no additional complaints, except as documented, Denies Abnormal speech present, Reports dizziness, Denies headache(s), Denies nu mbness, Denies tingling and Denies weakness PMFSH Past Medical History Medical History Asthma GERD (gastroesophageal reflux disease) Family History Pertinent family history: Diabetes and prostate cancer in father Social History Social History Alcohol intake: current Alcohol intake frequency: a few times a week Alcohol type: wine Smoking Status: Never smoker Use of substances other than those prescribed or required for medical reasons: No Advance Directives: No Advance Directives Information Provided: Yes Meds Allergies Allergy/AdvReac Type Severity Reaction Status Date / Time amoxicillin [AMOXICILLIN] Allergy Unknown UNKNOWN, Verified 01/25/21 19:10 nausea and vomiting penicillin V Allergy Unknown rash Verified 01/25/21 19:10 Penicillins [PENICILLINS] Allergy Unknown UNKNOWN Verified 01/25/21 19:10 Erythromycin Allergy Unknown Rash Uncoded 01/25/21 19:10 Active Medications: Current Medications Generic Name Dose Route Start Last Admin Trade Name Freq PRN Reason Stop Dose Admin Acetaminophen 650 mg 01/25/21 21:52 Acetaminophen 325 Mg Tablet PO Q6H PRN Pain, Mild (Pain Scale 1-3) Docusate Sodium 100 mg 01/25/21 21:52 Docusate Sodium 100 Mg Capsule PO DAILY PRN Constipation Enoxaparin Sodium 40 mg 01/25/21 22:00 01/25/21 23:18 Enoxaparin Sodium 40 Mg/0.4 Ml Syringe SUBCUT 40 mg Q24H LILIANA Administration Folic Acid 1 mg 01/26/21 09:00 01/26/21 08:52 Folic Acid 1 Mg Tablet PO 1 mg DAILY LILIANA Administration Medication 1 each 01/25/21 22:15 No Benzodiazepines MISCELLANE DAILY LILIANA Omeprazole 20 mg 01/25/21 22:55 01/26/21 08:52 Omeprazole 20 Mg Capsule.Dr PO 20 mg DAILY LILIANA Administration Ondansetron HCl 4 mg 01/25/21 21:52 Ondansetron Hcl 4 Mg/2 Ml Vial IVPUSH Q8H PRN Nausea and Vomiting Pharmacy Consult 1 each 01/25/21 17:40 Consult Rx Perform Med Rec MISCELLANE ONCE PRN Consult order Phenobarbital 45 mg 01/26/21 09:00 01/26/21 08:52 Phenobarbital 15 Mg Tablet PO 01/27/21 21:01 45 mg BID LILIANA Administration Phenobarbital 30 mg 01/28/21 09:00 Phenobarbital 30 Mg Tablet PO 01/29/21 21:01 BID [facility] Protocol Phenobarbital 15 mg 01/30/21 09:00 Phenobarbital 15 Mg Tablet PO 01/31/21 09:01 DAILY [facility] Protocol Sodium Chloride 3 ml 01/26/21 00:00 01/26/21 07:33 0.9 % Sodium Chloride Flush 3 Ml Syringe IVFLUSH Not Given QSHIFT [facility] Thiamine HCl 100 mg 01/26/21 09:00 01/26/21 08:52 Thiamine Hcl 100 Mg Tablet PO 100 mg DAILY [facility] Administration Home Medications Medication Instructions Recorded Confirmed Last Taken Type omeprazole 20 mg capsule,delayed 20 mg PO DAILY 01/25/21 01/25/21 01/23/21 History release Physical Exam Vital Signs: Last Vital Signs Temp 98.6 F 01/26/21 04:06 Pulse 82 01/26/21 07:50 Resp 20 01/26/21 07:50 BP 143/89 H 01/26/21 07:50 Pulse Ox 97 01/26/21 07:50 Body Mass Index 32.5 Const Other: Patient tremulous General: cooperative, healthy appearing, comfortable and no acute distress Orientation/consciousness: patient oriented x3 Limitations: no limitations [facility] Head: Yes normal to inspection Ears: hearing grossly normal bilaterally General nose exam: Normal external nose present Face and sinus: Yes normal facial exam Mouth: Normal oral and palatal mucosa present Throat: Yes posterior oropharynx normal Eyes General: appearance normal, both eyes and all related structures Conjunctivae: conjunctival abnormal (mild icteria) Pupils: Equal, round and reactive pupils present Neck Neck: Yes normal visual inspection Chest Chest palpation & inspection: normal inspection of the chest Resp Effort & Inspection: normal respiratory effort and able to speak in complete sentences Auscultation: clear to auscultation bilaterally Cardio Rate: regular rate Rhythm: regular rhythm Peripheral pulses: Peripheral pulses 2+ throughout GI Other: mild distention Inspection: Yes normal to inspection Palpation (GI): Soft to palpation, Firmness to palpation present (GI) and nontender Auscultation: normal bowel sounds Back/Spine/Pelvis Thoracic/Lumbar Spine: thoracic and lumbar spine normal to inspection Skin General skin exam: no rashes or lesions noted Neuro Other: +mild tremor bilateral hands General: patient oriented x3, no focal motor deficits and normal sensation to monofilament Cranial nerves: Yes CN's II-XII intact bilaterally, Yes Equal, round and reactive pupils present, Yes Bilaterally intact EOM present, Yes Nystagmus not present, Yes Normal facial strength present and Yes Midline tongue present Cognition (Neuro): normal cognition Speech: No Abnormal speech present Gait exam (Neuro): Other gait observations present (unable to assess-patient unable to perform) Motor exam (neuro): 5/5 motor strength present throughout Sensory Exam: Normal double simultaneous stimulation for sensation Coordination: [id number] test normal and [id number] test normal Extrem General: Yes normal to inspection, Yes no pedal edema, Yes no calf tenderness and Yes edema (left calf swelling, discoloration of the skin. +pulses distal) Results Lab Results Result Diagrams: 01/26/21 05:32 01/26/21 05:32 Lab results: Chemistry 01/25/21 01/25/21 01/26/21 16:19 19:46 05:32 Sodium 122 L 122 L 125 L Potassium 4.2 3.8 3.7 Carbon Dioxide 27 23 27 BUN 8 L 7 L 10 Creatinine 0.72 0.71 0.82 Calcium 8.6 7.9 L D 8.3 L Phosphorus 3.7 Total Bilirubin 1.3 H AST 120 H ALT 94 H Alkaline Phosphatase 75 Hematology 01/25/21 01/26/21 16:19 05:32 WBC 5.9 4.1 L Hgb 13.7 L 12.5 L Plt Count 75 L 63 L Urinalysis 01/25/21 23:31 Urine Color YELLOW Urine Appearance CLEAR Urine pH 6.0 Ur Specific [place] 1.015 Urine Protein NEG Urine Glucose (UA) NEG Urine Ketones 40 Urine Blood TRACE Urine Nitrite NEG Ur Leukocyte Esterase NEG Urine RBC 0-2 Urine WBC 0-2 Ur Squamous Epith Cells TRACE Urine Studies 01/25/21 01/25/21 23:31 23:31 Urine Osmolality 516 Urine Creatinine 88.87 Assessment and Plan (1) Nausea & vomiting: Status: Acute (2) Abdominal pain: Qualifiers: Abdominal location: generalized Qualified Code(s): R10.84 - Generalized abdominal pain Status: Acute (3) Acute hyponatremia: Status: Acute (4) Alcohol abuse: Status: Acute (5) Lactic acidosis: Status: Acute Euvolemic HypoNa with h/o N/V and ques heavy ETOH 1. Euvolvemic HypoNa: urine studies on adm c/w hypovolemic hypoNa given low Car and Urine osm and yet cliniclally does not look very dry given BP ok; suspect a mixed picture with poss Nausea being a stimulus for inapp ADH release; ques of liver dis playing a role and causing non-osmotic incr in ADH but clinically this does NOT seem to be the case--no ascites and BP elevated both go against this other causes of hypoNa usch as hypothyroid and adrenal insuff need to be r/o 2. N/V and abd pain: w/u in progress 3. Abnl liver on CT: may need furhter eval REC: repeat labs to track incr SNA as goal is to incr by no more durbin 6-8 meq/24 hrs; check TSH and cortisol level; depending on repeat SNa level may need adjustment of PO fluid intake and possble additional IVF Will follow devin with team # GERD - continue PPI DVT prophylaxis: Lovenox
--- NOTE | 2021-01-26 11:27 | MHC.CM.PN ---
Met with patient and brother Edward in regards to discharge planning. Patient lives alone, ambulates independently and had no services prior to coming to the ER. No services anticipated because patient is not homebound. 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 PCP is Oral Yanes. However, patient has seen him since 2018. HCP completed signed and witnessed. Original given to patient. Copy placed in chart. IMM explained and signed. Patient has transportation at discharge. Case Management office has been asked to arrange a follow up PCP appointment. Continue to monitor for d/c needs.
[2021-01-26 11:31] LABS: Anion Gap 15 (12-20); Blood Urea Nitrogen 10 mg/dL (9-16); Calcium 8.9 mg/dL (8.4-10.2); Carbon Dioxide 29 mmol/L (22-29); Chloride 85 mmol/L (96-108); Creatinine Clr Calc Pharmacy 96.4; Estimated Glomerular Filt Rate > 60; Glucose Random 111 mg/dL (60-115); Potassium 3.6 mmol/L (3.3-5.1); Sodium 125 mmol/L (135-145)
--- NOTE | 2021-01-26 12:17 | PC.NURSE ---
ATTEMPT TO CALL TO GIVE REPORT. WILL CALL BACK
--- NOTE | 2021-01-26 12:20 | PC.NURSE ---
REPORT TO MAGI ESCOTO
[2021-01-26 13:27] LABS: Sodium Urine Random < 20.0 mmol/L
[2021-01-26 13:42] LABS: Uric Acid Urine Random 31.8 mg/dL
[2021-01-26] MEDS: 0.9 % Sodium Chloride Flush 3 ML SYRINGE IVFLUSH ×2 (15:18→20:11)
[2021-01-26] MEDS: Sodium Chloride Tab 1 GM TABLET 2 GM PO ×2 (15:18→20:10)
--- NOTE | 2021-01-26 15:40 | HO.PM.IMPN ---
Subjective Subjective Date of Service: 01/26/21 Interval History: follow up for abdominal pain,n/v/d, hyponatremia abdominal pain, N/V and D has resolved. sodium levels remain low Review of Systems Review of Systems: Yes all other systems are reviewed and are negative Constitutional Constitutional: Denies chills and Denies fever(s) Cardiovascular Cardiovascular: Denies chest pain Respiratory Respiratory: Denies cough Gastrointestinal Gastrointestinal: Denies abdominal pain Physical Exam Vital Signs: Vital Signs: Last Vital Signs Temp 98 F 01/26/21 13:13 Pulse 98 01/26/21 13:13 Resp 20 01/26/21 13:13 BP 151/80 H 01/26/21 13:13 Pulse Ox 98 01/26/21 13:13 Body Mass Index 32.5 Const: Nutritional Appearance: well nourished Orientation/consciousness: patient oriented x3 HENMT: Head: Yes normocephalic and Yes atraumatic Eyes: Sclerae: sclerae normal Chest: Chest palpation & inspection: normal inspection of the chest Resp: Effort & Inspection: normal respiratory effort and no respiratory distress Cardio: Rate: regular rate Rhythm: regular rhythm GI: Palpation (GI): Soft to palpation and nontender Neuro: General: patient oriented x3 Cranial nerves: Yes CN's II-XII intact bilaterally and Yes Bilaterally intact EOM present Objective Data Current Medications Generic Name Dose Route Start Last Admin Trade Name Freq PRN Reason Stop Dose Admin Acetaminophen 650 mg 01/25/21 21:52 Acetaminophen 325 Mg Tablet PO Q6H PRN Pain, Mild (Pain Scale 1-3) Docusate Sodium 100 mg 01/25/21 21:52 Docusate Sodium 100 Mg Capsule PO DAILY PRN Constipation Enoxaparin Sodium 40 mg 01/25/21 22:00 01/25/21 23:18 Enoxaparin Sodium 40 Mg/0.4 Ml Syringe SUBCUT 40 mg Q24H LILIANA Administration Folic Acid 1 mg 01/26/21 09:00 01/26/21 08:52 Folic Acid 1 Mg Tablet PO 1 mg DAILY LILIANA Administration Medication 1 each 01/25/21 22:15 No Benzodiazepines MISCELLANE DAILY LILIANA Omeprazole 20 mg 01/25/21 22:55 01/26/21 08:52 Omeprazole 20 Mg Capsule.Dr PO 20 mg DAILY LILIANA Administration Ondansetron HCl 4 mg 01/25/21 21:52 Ondansetron Hcl 4 Mg/2 Ml Vial IVPUSH Q8H PRN Nausea and Vomiting Pharmacy Consult 1 each 01/25/21 17:40 Consult Rx Perform Med Rec MISCELLANE ONCE PRN Consult order Phenobarbital 45 mg 01/26/21 09:00 01/26/21 08:52 Phenobarbital 15 Mg Tablet PO 01/27/21 21:01 45 mg BID LILIANA Administration Phenobarbital 30 mg 01/28/21 09:00 Phenobarbital 30 Mg Tablet PO 01/29/21 21:01 BID LILIANA Protocol Phenobarbital 15 mg 01/30/21 09:00 Phenobarbital 15 Mg Tablet PO 01/31/21 09:01 DAILY LILIANA Protocol Sodium Chloride 3 ml 01/26/21 00:00 01/26/21 15:18 0.9 % Sodium Chloride Flush 3 Ml Syringe IVFLUSH 3 ml QSHIFT LILIANA Administration Sodium Chloride 2 gm 01/26/21 15:00 01/26/21 15:18 Sodium Chloride Tab 1 Gm Tablet PO 2 gm TID LILIANA Administration Thiamine HCl 100 mg 01/26/21 09:00 01/26/21 08:52 Thiamine Hcl 100 Mg Tablet PO 100 mg DAILY LILIANA Administration Labs CBC & Chem 7: 01/26/21 05:32 01/26/21 15:28 Assessment and Plan (1) Acute hyponatremia: Status: Acute Assessment and Plan: This is a 65-year-old male with past medical history of GERD and alcohol abuse who presents to the hospital with complaints of abdominal pain nausea vomiting and diarrhea found to have hyponatremia. abdominal pain nausea vomiting and diarrhea Resolved. most likely secondary to gastroenteritis. abdominal CT negative for any acute pathology hyponatremia likely multifactorial - nephrology following - continue fluid restriction - follow BMP closely alcohol abuse reports frequent wine intake - continue phenobarb protocol - thiamine and folic acid supplementation Pancytopenia ? r/t etoh abuse -follow CBC lactic acidosis resolved. most likely secondary to dehydration no evidence of sepsis GERD - continue PPI DVT prophylaxis: mechanical devices attending Dr. perry
[2021-01-26 15:56] LABS: Blood Urea Nitrogen 11 mg/dL (9-16); Calcium 8.7 mg/dL (8.4-10.2); Creatinine Clr Calc Pharmacy 96.4; Estimated Glomerular Filt Rate > 60; Glucose Random 116 mg/dL (60-115)
[2021-01-26 16:05] LABS: Anion Gap 14 (12-20); Carbon Dioxide 30 mmol/L (22-29); Chloride 86 mmol/L (96-108); Potassium 3.8 mmol/L (3.3-5.1); Sodium 126 mmol/L (135-145)
[2021-01-26] MEDS: 0.9 % Sodium Chloride 1,000 ML 100 ML IVCONT (16:30)
[2021-01-26 16:54] LABS: Osmolality Urine 360 mosm/kg (373-1093)
[2021-01-26 19:58] LABS: Sodium 127 mmol/L (135-145)
[2021-01-27 03:42] VITALS: BP 135/91; PULSE 112; RESP 18; TEMP 36.8; O2SAT 97
[2021-01-27 07:45] LABS: Anion Gap 15 (12-20); Blood Urea Nitrogen 12 mg/dL (9-16); Calcium 8.7 mg/dL (8.4-10.2); Carbon Dioxide 31 mmol/L (22-29); Chloride 91 mmol/L (96-108); Estimated Glomerular Filt Rate > 60; Glucose Random 92 mg/dL (60-115); Potassium 3.7 mmol/L (3.3-5.1); Sodium 133 mmol/L (135-145)
[2021-01-27 08:00] VITALS: BP 135/95; PULSE 98; RESP 19; TEMP 36.5; O2SAT 95
[2021-01-27 08:06] LABS: TSH reflex Free T4 4.03 uIU/mL (0.32-4.0)
[2021-01-27 08:40] LABS: Free T4 (Free Thyroxine) 0.91 ng/dL (0.71-1.85)
[2021-01-27] MEDS: Thiamine HCL 100 MG TABLET PO (08:41)
[2021-01-27] MEDS: Folic Acid 1 MG TABLET PO (08:42)
[2021-01-27] MEDS: Omeprazole 20 MG CAPSULE.DR PO (08:42)
[2021-01-27] MEDS: 0.9 % Sodium Chloride Flush 3 ML SYRINGE IVFLUSH ×3 (08:46→20:02)
[2021-01-27 10:03] VITALS: BP 135/95; PULSE 98; O2SAT 95
--- NOTE | 2021-01-27 11:20 | PM.DS ---
DS: Providers Provider Date of Service: 01/28/21 Date of admission: 01/25/21 21:33 Primary care physician: Unknown Physician Consults: 01/25/21 18:27 Consult to Nephrology Stat Consulting Provider: Cesar Shi Reason for consultation: hyponatremia DS: Diagnosis Discharge Diagnosis (1) Acute hyponatremia: Status: Acute (2) Gastroenteritis: Status: Acute (3) Alcohol abuse: Status: Acute (4) Lactic acidosis: Status: Acute (5) Pancytopenia: Status: Acute DS: Medications Discharge Medications Home Medications: Home Medications Medication Instructions Recorded Confirmed omeprazole 20 mg capsule,delayed 20 mg PO DAILY 01/25/21 01/25/21 release DS: Summary Hospital Course Hospital Course: From H&P This is a 65-year-old male with past medical history of GERD, alcohol abuse who presents to the hospital with complaints of abdominal pain, nausea, vomiting, and diarrhea. Patient reports that his symptoms wound 2 days ago but worse today. He has not had any appetite or oral intake for the past 2 days. He has had multiple episodes of diarrhea vomiting. Abdominal pain is diffuse, 8/10, nonradiating.denies having any fever or chills, no recent sick contacts, no recent travel. No chest pain, no shortness of breath, no cough, no urinary symptoms and no lower extremity edema. For abdominal pain, nausea/vomiting and diarrhea. Ct scan did not show any acute changes to account for symptoms. Symptoms consistent with gastroenteritis. Patient was treated symptomatically and with supportive care. His symptoms resolved any he is currently tolerating a regular diet. Hyponatremia. Patient's sodium on admission was 122. This is likely multifactorial in nature. He was seen in consultation by Nephrology. He was initially placed on a fluid restriction. His sodium gradually increased over the past 48 hours to 133 on the day of discharge. Alcohol withdrawal. Patient was started on phenobarbital treatment of withdrawal. He has been encouraged to stop drinking alcohol. He was seen by the Care Team and given resources to maintain sobriety and was recommended to start Naltrexone. [facility]. Pancytopenia. Likely related to alcohol intake. Recommend further workup as an outpatient. HTN. Blood pressure somewhat elevated, possible in part due to alcohol withdrawal. Recommend to follow up with PCP for close BP monitoring. Patient was evaluated by physical therapy who recommended the patient to return home without services. Time Spent with Patient Time attestation: Total time spent providing and/or coordinating discharge services: Discharge coordination time: Greater than 30 minutes Physical Exam Vital Signs: Vital Signs: Last Vital Signs Temp 97.7 F 01/27/21 08:00 Pulse 98 01/27/21 10:03 Resp 19 01/27/21 08:00 BP 135/95 H 01/27/21 10:03 Pulse Ox 95 01/27/21 10:03 Body Mass Index 32.5 Const: Nutritional Appearance: well nourished HENMT: Head: Yes normocephalic and Yes atraumatic Eyes: Sclerae: sclerae normal Chest: Chest palpation & inspection: normal inspection of the chest Resp: Effort & Inspection: normal respiratory effort and no respiratory distress Cardio: Rate: regular rate Rhythm: regular rhythm GI: Palpation (GI): Soft to palpation and nontender Neuro: Cranial nerves: Yes CN's II-XII intact bilaterally and Yes Bilaterally intact EOM present DS: Data Data Completed and Pending Labs on day of discharge: Laboratory Results - last 24 hr 01/26/21 01/26/21 01/26/21 05:32 10:38 12:58 Sodium Cancelled 125 L Potassium Cancelled 3.6 Chloride Cancelled 85 L Carbon Dioxide Cancelled 29 Anion Gap Cancelled 15 BUN Cancelled 10 Creatinine Cancelled 0.84 Estim Creat Clear Calc Cancelled 96.4 Estimated GFR Cancelled > 60 Random Glucose Cancelled 111 Uric Acid Cancelled Calcium Cancelled 8.9 D TSH Free T4 Urine Osmolality 360 L Ur Random Sodium Ur Random Uric Acid 01/26/21 01/26/21 01/26/21 12:58 12:58 15:28 Sodium 126 L Potassium 3.8 Chloride 86 L Carbon Dioxide 30 H Anion Gap 14 BUN 11 Creatinine 0.84 Estim Creat Clear Calc 96.4 Estimated GFR > 60 Random Glucose 116 H Uric Acid Calcium 8.7 TSH Free T4 Urine Osmolality Ur Random Sodium < 20.0 Ur Random Uric Acid 31.8 01/26/21 01/27/21 01/27/21 19:15 07:07 07:07 Sodium 127 L 133 L Potassium 3.7 Chloride 91 L Carbon Dioxide 31 H Anion Gap 15 BUN 12 Creatinine 0.81 Estim Creat Clear Calc 100.0 Estimated GFR > 60 Random Glucose 92 Uric Acid Calcium 8.7 TSH 4.03 H Free T4 0.91 Urine Osmolality Ur Random Sodium Ur Random Uric Acid Preliminary micro results at discharge 01/25/21 16:20 Blood Culture - Preliminary Blood - Venous No growth after 24 hours. 01/25/21 16:23 Blood Culture - Preliminary Blood - Venous No growth after 24 hours. Discharge Plan Discharge Patient Disposition: Home, Self-Care Discharge Diagnosis: Gastroenteritis Hyponatremia Alcohol use Referrals: Oral Yanes FNP-BC [Nurse Practitioner] - 1 Week (Office will contact you to set up a follow up appointment) Donna Baker CNP [Nurse Practitioner] - 1 Week Physician,Unknown [Primary Care Provider] - 1 Week Discharge Medications: New thiamine HCl (vitamin B1) 100 mg tablet 100 mg PO DAILY 30 Days Qty: 30 RF: 0 Continued omeprazole 20 mg capsule,delayed release(DR/EC) 20 mg PO DAILY RF: 0 Activity on Discharge: As tolerated Stand Alone Forms: Patient Portal Discharge page Care Plan Goals: See below Health Concerns: Hyponatremia Alcohol use Abdominal pain, Nausea/Vomiting/diarrhea Pancytopenia Plan of Treatment: Please abstain from alcohol use. You were seen by the care team and they have recommended naltrexone. Please follow up at the [facility]. Please call your PCP to schedule a follow up appointment Assessment: See discharge summary
--- NOTE | 2021-01-27 11:27 | MHC.CM.PN ---
DP Male 65 DX HYPONATREMIA discharged today. No home services ordered or needed. Pt has arranged for private transportation to home.
[2021-01-27 11:52] VITALS: PULSE 80; RESP 18; TEMP 36.2; O2SAT 100
[2021-01-27] MEDS: PHENobarbitaL 15 MG TABLET 45 MG PO ×2 (12:40→20:01)
[2021-01-27 12:44] LABS: Sodium 129 mmol/L (135-145)
--- NOTE | 2021-01-27 13:23 | MHC.RECOVSUP ---
? Reason for consult:Continuity of care o Current location: [facility] o Identified substance use concern:ETOH - Withdrawal - Support ? Intervention: o Community resources provided o Harm reduction discussion ? Plan: o Referral to [facility] o Patient to follow up with [facility] after discharge ? Additional information:Patient refused detox, spoke with him re: harm reduction and referred him to the [facility]. Gave him community resources.
--- NOTE | 2021-01-27 13:36 | HO.PM.IMPN ---
Subjective Subjective Date of Service: 01/27/21 Interval History: follow up for hyponatremia no events overnight, feels ok today. repeat sodium level back down to 129 Review of Systems Review of Systems: Yes all other systems are reviewed and are negative Constitutional Constitutional: Denies chills and Denies fever(s) Cardiovascular Cardiovascular: Denies chest pain Respiratory Respiratory: Denies cough Gastrointestinal Gastrointestinal: Denies abdominal pain Physical Exam Vital Signs: Vital Signs: Last Vital Signs Temp 97.1 F 01/27/21 11:52 Pulse 80 01/27/21 11:52 Resp 18 01/27/21 11:52 BP 135/95 H 01/27/21 10:03 Pulse Ox 100 01/27/21 11:52 Body Mass Index 32.5 Const: Nutritional Appearance: well nourished Orientation/consciousness: patient oriented x3 HENMT: Head: Yes normocephalic and Yes atraumatic Eyes: Sclerae: sclerae normal Chest: Chest palpation & inspection: normal inspection of the chest Resp: Effort & Inspection: normal respiratory effort and no respiratory distress Cardio: Rate: regular rate Rhythm: regular rhythm GI: Palpation (GI): Soft to palpation and nontender Neuro: General: patient oriented x3 Cranial nerves: Yes CN's II-XII intact bilaterally and Yes Bilaterally intact EOM present Objective Data Current Medications Generic Name Dose Route Start Last Admin Trade Name Freq PRN Reason Stop Dose Admin Acetaminophen 650 mg 01/25/21 21:52 Acetaminophen 325 Mg Tablet PO Q6H PRN Pain, Mild (Pain Scale 1-3) Docusate Sodium 100 mg 01/25/21 21:52 Docusate Sodium 100 Mg Capsule PO DAILY PRN Constipation Folic Acid 1 mg 01/26/21 09:00 01/27/21 08:42 Folic Acid 1 Mg Tablet PO 1 mg DAILY LILIANA Administration Medication 1 each 01/25/21 22:15 No Benzodiazepines MISCELLANE DAILY LILIANA Omeprazole 20 mg 01/25/21 22:55 01/27/21 08:42 Omeprazole 20 Mg Capsule. PO 20 mg DAILY LILIANA Administration Ondansetron HCl 4 mg 01/25/21 21:52 Ondansetron Hcl 4 Mg/2 Ml Vial IVPUSH Q8H PRN Nausea and Vomiting Pharmacy Consult 1 each 01/25/21 17:40 Consult Rx Perform Med Rec MISCELLANE ONCE PRN Consult order Phenobarbital 45 mg 01/26/21 09:00 01/27/21 12:40 Phenobarbital 15 Mg Tablet PO 01/27/21 21:01 45 mg BID [facility] Administration Phenobarbital 30 mg 01/28/21 09:00 Phenobarbital 30 Mg Tablet PO 01/29/21 21:01 BID [facility] Protocol Phenobarbital 15 mg 01/30/21 09:00 Phenobarbital 15 Mg Tablet PO 01/31/21 09:01 DAILY [facility] Protocol Sodium Chloride 3 ml 01/26/21 00:00 01/27/21 08:46 0.9 % Sodium Chloride Flush 3 Ml Syringe IVFLUSH 3 ml QSHIFT [facility] Administration Thiamine HCl 100 mg 01/26/21 09:00 01/27/21 08:41 Thiamine Hcl 100 Mg Tablet PO 100 mg DAILY [facility] Administration Urea 15 gm 01/27/21 13:35 Urea 15 Gm Powder PO BID [facility] Labs CBC & Chem 7: 01/26/21 05:32 01/27/21 12:11 Microbiology Microbiology Results: Microbiology 01/25/21 16:20 Blood - Venous Blood Culture - Preliminary No growth after 24 hours. 01/25/21 16:23 Blood - Venous Blood Culture - Preliminary No growth after 24 hours. Assessment and Plan (1) Acute hyponatremia: Status: Acute (2) Gastroenteritis: Status: Acute (3) Alcohol abuse: Status: Acute (4) Lactic acidosis: Status: Acute (5) Pancytopenia: Status: Acute Assessment and Plan: This is a 65-year-old male with past medical history of GERD and alcohol abuse who presents to the hospital with complaints of abdominal pain nausea vomiting and diarrhea found to have hyponatremia. abdominal pain nausea vomiting and diarrhea Resolved. most likely secondary to gastroenteritis. abdominal CT negative for any acute pathology hyponatremia this am sodium up to 133, but after fluid restriction and salt tabs d/c back down to 129. nephrology rec staying overnight to repeat labs. likely multifactorial - nephrology following - continue fluid restriction - follow BMP closely alcohol abuse reports frequent wine intake - continue phenobarb protocol - thiamine and folic acid supplementation - seen by Care team, given resources Pancytopenia ? r/t etoh abuse -follow CBC lactic acidosis resolved. most likely secondary to dehydration no evidence of sepsis GERD - continue PPI DVT prophylaxis: mechanical devices attending Dr. perry
[2021-01-27] MEDS: Urea 15 GM POWDER PO ×2 (13:54→20:02)
--- NOTE | 2021-01-27 15:01 | MHC.CM.PN ---
DP DC on hold, R/T continued low NA as well as s/s of DT worse, BP elevated, pt appeared more unsteady and confused. CM will follow.
[2021-01-27 15:24] VITALS: BP 126/90; PULSE 124; RESP 18; TEMP 36.4; O2SAT 98
--- NOTE | 2021-01-27 15:56 | PM.PNNEP ---
Subjective Subjective Date of Service: 01/27/21 Interval history: Seen and examined. Am SNa 132 but then repeat at noon was down to 129 again Physical Exam Vital Signs: Vital Signs: Last Vital Signs Temp 97.6 F 01/27/21 15:24 Pulse 124 H 01/27/21 15:24 Resp 18 01/27/21 15:24 BP 126/90 H 01/27/21 15:24 Pulse Ox 98 01/27/21 15:24 Body Mass Index 32.5 Const: Other: Patient tremulous General: cooperative, healthy appearing, comfortable and no acute distress Orientation/consciousness: patient oriented x3 Limitations: no limitations HENMT: Head: Yes normal to inspection Ears: hearing grossly normal bilaterally General nose exam: Normal external nose present Face and sinus: Yes normal facial exam Mouth: Normal oral and palatal mucosa present Throat: Yes posterior oropharynx normal Eyes: General: appearance normal, both eyes and all related structures Conjunctivae: conjunctival abnormal (mild icteria) Pupils: Equal, round and reactive pupils present Neck: Neck: Yes normal visual inspection Chest: Chest palpation & inspection: normal inspection of the chest Resp: Effort & Inspection: normal respiratory effort and able to speak in complete sentences Auscultation: clear to auscultation bilaterally Cardio: Rate: regular rate Rhythm: regular rhythm Peripheral pulses: Peripheral pulses 2+ throughout GI: Other: mild distention Inspection: Yes normal to inspection Palpation (GI): Soft to palpation, Firmness to palpation present (GI) and nontender Auscultation: normal bowel sounds Back/Spine/Pelvis: Thoracic/Lumbar Spine: thoracic and lumbar spine normal to inspection Skin: General skin exam: no rashes or lesions noted Neuro: Other: +mild tremor bilateral hands General: patient oriented x3, no focal motor deficits and normal sensation to monofilament Cranial nerves: Yes CN's II-XII intact bilaterally, Yes Equal, round and reactive pupils present, Yes Bilaterally intact EOM present, Yes Nystagmus not present, Yes Normal facial strength present and Yes Midline tongue present Cognition (Neuro): normal cognition Speech: No Abnormal speech present Gait exam (Neuro): Other gait observations present (unable to assess-patient unable to perform) Motor exam (neuro): 5/5 motor strength present throughout Sensory Exam: Normal double simultaneous stimulation for sensation Coordination: [id number] test normal and [id number] test normal Extrem: General: Yes normal to inspection, Yes no pedal edema, Yes no calf tenderness and Yes edema (left calf swelling, discoloration of the skin. +pulses distal) Objective Data Labs CBC & Chem 7: 01/26/21 05:32 01/27/21 12:11 Labs: Laboratory Results - last 24 hr 01/26/21 01/26/21 01/26/21 05:32 10:38 12:58 Sodium Cancelled 125 L Potassium Cancelled 3.6 Chloride Cancelled 85 L Carbon Dioxide Cancelled Anion Gap Cancelled BUN Cancelled 10 Creatinine Cancelled Estim Creat Clear Calc Cancelled Estimated GFR Cancelled Random Glucose Cancelled 111 Uric Acid Cancelled Calcium Cancelled 8.9 D TSH Free T4 Urine Osmolality 360 L 01/26/21 01/26/21 01/27/21 15:28 19:15 07:07 Sodium 126 L 127 L Potassium 3.8 Chloride 86 L Carbon Dioxide 30 H Anion Gap 14 BUN 11 Creatinine 0.84 Estim Creat Clear Calc 96.4 Estimated GFR > 60 Random Glucose 116 H Uric Acid Calcium 8.7 TSH 4.03 H Free T4 0.91 Urine Osmolality 01/27/21 01/27/21 07:07 12:11 Sodium 133 L 129 L Potassium 3.7 Chloride 91 L Carbon Dioxide 31 H Anion Gap 15 BUN 12 Creatinine 0.81 Estim Creat Clear Calc 100.0 Estimated GFR > 60 Random Glucose 92 Uric Acid Calcium 8.7 TSH Free T4 Urine Osmolality Microbiology Microbiology Results: Microbiology 01/25/21 16:20 Blood - Venous Blood Culture - Preliminary No growth after 24 hours. 01/25/21 16:23 Blood - Venous Blood Culture - Preliminary No growth after 24 hours. Assessment & Plan Assessment and plan (1) Nausea & vomiting: Status: Acute (2) Abdominal pain: Status: Acute (3) Acute hyponatremia: Status: Acute (4) Alcohol abuse: Status: Acute (5) Lactic acidosis: Status: Acute Assessment and Plan: Euvolemic HypoNa with h/o N/V and ques heavy ETOH 1. Euvolvemic HypoNa: w/u thus far cont to show a mixed picture and this am with Sna upt to 133 it looks like the event was in large part d/t nausea but now repeat SNa 129 and suggests he may have a component of SIADH hypothy r/o adrenal insuff unlikley as BP not low; cortisol level still pending hypovol hypoNa ?? with BP not low makes this less likley liver dis assoc: he does not have liver cirrhosis based on CT His urine studies are not classic for SIADH given Car has been < 20 and thus looks like a miixed picture with ? coomponent of hypovol hypoNa despite absence of low BPs or signs of vol depletion on exam 2. N/V and abd pain: resolved 3. Abnl liver on CT: may need furhter eval REC: start URea 15 gm po BId and r/s PO fluid rest 1500/24 hrs and track SNa ..repeat at 8 pm and then again in am; may need to add back po NaCL tabs as well; will need clos outpt f/u and if HypoNa persists and he has true chronic hypoNa from SIADH then additional studies will be required Will follow devin with team Time Spent With Patient Time: Total time spent is greater than 50% in coordination of care (as documented) at patient's floor/unit and/or counseling patient:
--- NOTE | 2021-01-27 17:00 | MHC.RECOVRN ---
65 year old male presented to [facility] on 01/25 via EMS due to pt sent from urgent care in [place], last two weeks having abd pain/v/d, poor po intake/feeling dizzy/weak/unsteady gait per director prospect. Upon evaluation, pt reported alcohol use and was subsequently admitted for treatment of hyponatremia, n/v, abd pain, lactic acidosis. Pt started on phenobarb protocol.? T/w met with pt in 460 after consult was placed to CARE Team for etoh. Pts brother, Edward, also present for conversation. Pt reports extensive family history of substance use disorders. Pt reports alcohol use, 1-2 bottles of wine daily x 2 years. Prior to that, pt was routinely drinking 1+ bottles of wine 1-2 times per week, especially on with pts friend Richard. Age of first use 16. Pt denies other substances.? 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 Pt reports beginning of COVID is when alcohol use became more prevalent. Pt has not received treatment in the past for AUD and denies significant time in recovery. Pt reports pattern of use as increasing when pt would have a beer to settle my stomach. Pt educated regarding alcohol withdrawal and potential dangers involved.? Currently, pt states I will not have have another drink. I really think I can do it on my own with the conviction I have. Pathways to recovery were discussed, as well as different levels of care. Pts brother is very supportive and would like pt to receive some type of treatment. Pt is open to IOP, AA, counseling, and learning more about medications for AUD.?? T/w provided pt with t/w contact information and will f/u tomorrow to discuss further and provide more resources. Pt and brother extremely grateful and both have hope for pts recovery.?
[2021-01-27 18:31] LABS: Urea, Random Urine 427 mg/dL
[2021-01-27 19:30] VITALS: BP 155/95; PULSE 96; RESP 18; TEMP 36.4; O2SAT 97
[2021-01-27 20:36] LABS: Anion Gap 13 (12-20); Carbon Dioxide 29 mmol/L (22-29); Chloride 90 mmol/L (96-108); Potassium 3.3 mmol/L (3.3-5.1); Sodium 129 mmol/L (135-145)
[2021-01-28] VITALS: BP 170/90; PULSE 90; RESP 16; TEMP 36.6
[2021-01-28 00:34] VITALS: BP 154/90; PULSE 92
[2021-01-28] MEDS: traZODone HCL 25 MG HALFTAB PO (02:17)
[2021-01-28 04:00] VITALS: BP 133/86; PULSE 103; RESP 16; TEMP 36.6; O2SAT 97
[2021-01-28 07:17] LABS: Anion Gap 14 (12-20); Blood Urea Nitrogen 19 mg/dL (9-16); Calcium 9.2 mg/dL (8.4-10.2); Carbon Dioxide 30 mmol/L (22-29); Chloride 92 mmol/L (96-108); Creatinine Clr Calc Pharmacy 101.2; Estimated Glomerular Filt Rate > 60; Glucose Random 94 mg/dL (60-115); Potassium 3.3 mmol/L (3.3-5.1); Sodium 133 mmol/L (135-145)
[2021-01-28 08:00] VITALS: BP 162/110; PULSE 82; RESP 20; TEMP 36.8; O2SAT 97
[2021-01-28] MEDS: PHENobarbitaL 30 MG TABLET PO (08:11)
[2021-01-28] MEDS: Folic Acid 1 MG TABLET PO (08:11)
[2021-01-28] MEDS: 0.9 % Sodium Chloride Flush 3 ML SYRINGE IVFLUSH (08:12)
[2021-01-28] MEDS: Urea 15 GM POWDER PO (08:12)
[2021-01-28] MEDS: Omeprazole 20 MG CAPSULE.DR PO (08:12)
[2021-01-28] MEDS: Thiamine HCL 100 MG TABLET PO (08:12)
--- NOTE | 2021-01-28 09:00 | MHC.RECOVRN ---
T/w met with pt to f/u from yesterday's discussion. Pt continues to be interested in naltrexone. Donna Baker APRN, in to see pt; pt to be started and script sent to pharmacy. Intake appt scheduled with the [facility] on 02/02 at 1:45PM. Pt also plans to begin [facility] in [place]. Pt encouraged to reach out to t/w if questions or concerns arise.
[2021-01-28 10:16] VITALS: BP 125/87; PULSE 88
--- NOTE | 2021-01-28 10:21 | MHC.CM.PN ---
Patient has been medically cleared for dc to home today, no services. Last IMM addressed on 01/26/21.
--- NOTE | 2021-01-28 19:23 | HO.ADDICT_ITS ---
History of Present Illness Date of Service: 01/28/2021 Chief Complaint: hyponatremia Reason for Consult: Alcohol use disorder--interested in MAT Requesting physician: Charlie Colbert Discussed with referring provider: Yes Sources of Information: patient interviewed and chart reviewed HPI Narrative: Patient is a 65 year old male medically admitted with hyponatremia and alcohol withdrawal. Patient seen by Recovery Support RN and verbalized desire to start medication for alcohol use Please see RN note for further details Briefly patient reports he has been drinking 1-2 bottles of wine for the last several months, hadpreviously been drinking wine daily and reports that consumption increased during pandemic. Denies any other substance use or treatment history Past Psychiatric History: not reviewed Medical Evaluation Reviewed: Yes elevated LFTs at admission Review of Systems Constitutional: Reports as per HPI and Reports no additional constitutional complaints Diagnostics Vital Signs (24Hr): Vital Signs - 24 hr 01/27/21 19:30 01/28/21 00:00 01/28/21 00:34 Temperature 97.6 F 97.8 F Pulse Rate 96 90 92 Respiratory Rate 18 16 Blood Pressure 155/95 H 170/90 H 154/90 H Pulse Oximetry 97 01/28/21 04:00 01/28/21 08:00 01/28/21 10:16 Temperature 97.9 F 98.2 F Pulse Rate 103 H 82 88 Respiratory Rate 16 20 Blood Pressure 133/86 162/110 H 125/87 Pulse Oximetry 97 97 Body Mass Index 32.5 Labs Results: 01/26/21 05:32 01/28/21 06:25 Labs: Laboratory Results - last 48 hr 01/25/21 01/26/21 01/27/21 23:31 19:15 07:07 Sodium 127 L Potassium Chloride Carbon Dioxide Anion Gap BUN Creatinine Estim Creat Clear Calc Estimated GFR Random Glucose Calcium TSH 4.03 H Free T4 0.91 Cortisol Ur Random Urea 427 01/27/21 01/27/21 01/27/21 07:07 07:07 12:11 Sodium 133 L 129 L Potassium 3.7 Chloride 91 L Carbon Dioxide 31 H Anion Gap 15 BUN 12 Creatinine 0.81 Estim Creat Clear Calc 100.0 Estimated GFR > 60 Random Glucose 92 Calcium 8.7 TSH Free T4 Cortisol 18.7 Ur Random Urea 01/27/21 01/28/21 19:56 06:25 Sodium 129 L 133 L Potassium 3.3 3.3 Chloride 90 L 92 L Carbon Dioxide 29 30 H Anion Gap 13 14 BUN 19 H D Creatinine 0.80 Estim Creat Clear Calc 101.2 Estimated GFR > 60 Random Glucose 94 Calcium 9.2 TSH Free T4 Cortisol Ur Random Urea Imaging Radiology Impressions: ITS Impressions Chest X-Ray 01/25/21 15:48 IMPRESSION: No acute cardiopulmonary process seen. Venous Duplex 01/25/21 15:48 IMPRESSION: No DVT demonstrated in the left lower extremity. Abdomen/Pelvis CT 01/25/21 17:39 IMPRESSION: 1. Severely decreased liver attenuation suggesting hepatic steatosis. Correlation with liver enzymes recommended. 2. Small right renal cyst. 3. Moderate colonic diverticulosis without CT evidence to suggest active diverticulitis. Head CT 01/25/21 17:39 IMPRESSION: No acute intracranial process seen. Mental Status Exam Mental Status Exam Patient Appearance: Appropriate Patient Orientation: Person, Place, Time and Situation Level of Consciousness: Awake, Appropriate and Alert Patient Behavior: Appropriate and Passive Mood Description: Appropriate and Anxious Affect Description: Appropriate and Anxious Patient Cognition Impaired: No Ability to Follow Directions: Excellent Speech Pattern: Clear Hallucinations: None Delusions: Not Present Thought Process: Intact Thought Content: positive for Intact Judgement: Good Medications Allergies Allergies Allergy/AdvReac Type Severity Reaction Status Date / Time amoxicillin [AMOXICILLIN] Allergy Unknown UNKNOWN, Verified 01/25/21 19:10 nausea and vomiting penicillin V Allergy Unknown rash Verified 01/25/21 19:10 Penicillins [PENICILLINS] Allergy Unknown UNKNOWN Verified 01/25/21 19:10 Erythromycin Allergy Unknown Rash Uncoded 01/25/21 19:10 Assessment & Plan Assessment & Plan (1) Alcohol use disorder: Status: Acute Recommendations: * Discussed treatment options, agreeable to Naltrexone trial. Discussed medication, dosing time, side effects and goals of treatment * Follow up scheduled at [facility] Greater than 50% of the session was spent on counseling and/or coordination of care [facility] Past Medical History Medical History Asthma GERD (gastroesophageal reflux disease) Social History Social History Household Members: None Housing: House Do you presently have visiting nurse or other home services: No Alcohol intake: current Alcohol intake frequency: a few times a week Alcohol type: wine Smoking Status: Never smoker Advance Directives Date on File: 01/26/21 service: No Current occupational status: employed
== END 2021-01-28 11:35 | disposition home or self-care (01) | DRG 392 ==
LOC: HO.ED 20:38 → HO.EDOVER 21:59 → HO.IMC 01-26 12:03
PROVIDERS: Internal Medicine Nephrology; Nurse Practitioner Family; Physician Assistant Medical; Admitting Provider Internal Medicine; Emergency Provider Emergency Medicine; PCP Nurse Practitioner Family; Visit Provider Family Medicine
DX: K52.9 Noninfective gastroenteritis and colitis, unspecified (principal); E87.1 Hypo-osmolality and hyponatremia; F10.139 Alcohol abuse with withdrawal, unspecified; E87.2 Acidosis; D61.818 Other pancytopenia; K21.9 Gastro-esophageal reflux disease without esophagitis; Z20.822 Contact with and (suspected) exposure to COVID-19; Z88.0 Allergy status to penicillin; Z79.899 Other long term (current) drug therapy
CPT/HCPCS: 36415; 70450; 71046; 74177; 80048; 80051; 80076; 80143; 80179; 80307; 80320; 81001; 82533; 83605; 83690; 83735; 83880; 83930; 83935; 84100; 84295; 84300; 84439; 84443; 84484; 84540; 84550; 84560; 85025; 85610; 85730; 87040; 87635; 93005; 93971; 96374; 96375; 97162; 99285; J1650; J2060; J2405; J2560; Q9967

== ENCOUNTER 2021-02-01 12:16 | Outpatient (REF) | payer MEDICARE, SELFPAY ==
[2021-02-01 14:15] LABS: Anion Gap 14 (12-20); Blood Urea Nitrogen 12 mg/dL (9-16); Calcium 9.4 mg/dL (8.4-10.2); Carbon Dioxide 30 mmol/L (22-29); Chloride 96 mmol/L (96-108); Estimated Glomerular Filt Rate > 60; Glucose Random 110 mg/dL (60-115); Potassium 3.5 mmol/L (3.3-5.1); Sodium 136 mmol/L (135-145)
== END 2021-02-01 12:17 | disposition home or self-care (01) ==
LOC: HO.HMGCLDS 12:16
PROVIDERS: PCP Nurse Practitioner Family; Visit Provider Physician Assistant Medical
DX: E87.1 Hypo-osmolality and hyponatremia (principal)
CPT/HCPCS: 36415; 80048

== ENCOUNTER → 2021-02-02 14:26 | Outpatient (BNVA) | payer MEDICARE, SELFPAY | PROVIDERS: Visit Provider Internal Medicine | DX: F10.10 Alcohol abuse, uncomplicated (principal); Z51.81 Encounter for therapeutic drug level monitoring; Z79.899 Other long term (current) drug therapy | CPT/HCPCS: 80305; 99212 ==

== ENCOUNTER 2021-02-04 10:53 | Outpatient (REF) | payer MEDICARE, SELFPAY ==
[2021-02-04 13:58] LABS: MANUAL DIFF FLAG NO
[2021-02-04 14:05] LABS: Basophils Absolute Auto 0.1 X10*3/uL (0.0-0.2); Eosinophils Absolute Auto 0.1 X10*3/uL (0.0-0.4); Eosinophils Percent Auto 1.2 % (0-4); Hemoglobin 13.1 g/dl (14.0-18.0); Imm Gran Abs Auto 0.02 X10*3/uL (0.00-0.03); Imm Gran Pct Auto 0.4 % (0.0-0.4); Lymphocytes Absolute Auto 0.9 X10*3/uL (1.2-4.9); Lymphocytes Percent Auto 17.5 % (20-40); Mean Corpuscular HGB Conc 32.8 g/dl (31.0-36.0); Mean Corpuscular Hemoglobin 31.3 pg (27.0-33.0); Mean Corpuscular Volume 95.7 fL (80-98); Mean Platelet Volume 10.3 fL (9.4-12.4); Monocytes Percent Auto 18.5 % (2-11); Neutrophils Absolute Auto 3.2 X10*3/uL (2.0-8.3); Neutrophils Percent Auto 61.4 % (45-73); Platelet Count 359 X10*3/uL (160-400); Red Blood Count 4.18 X10*6/uL (4.60-5.80); White Blood Count 5.1 X10*3/uL (4.8-10.8)
[2021-02-04 14:21] LABS: Alanine Aminotransferase 65 U/L (0-40); Albumin Level 3.8 g/dL (3.5-5.0); Alkaline Phosphatase 76 U/L (39-117); Anion Gap 16 (12-20); Aspartate Amino Transferase 41 U/L (5-37); Bilirubin Total 0.7 mg/dL (0.0-1.0); Blood Urea Nitrogen 13 mg/dL (9-16); Calcium 9.4 mg/dL (8.4-10.2); Carbon Dioxide 26 mmol/L (22-29); Chloride 102 mmol/L (96-108); Cholesterol 166 mg/dL; Estimated Glomerular Filt Rate > 60; Glucose Random 105 mg/dL (60-115); HDL Cholesterol 46 mg/dL; LDL Cholesterol Calculated 106 mg/dl; Potassium 4.8 mmol/L (3.3-5.1); Sodium 139 mmol/L (135-145); Total Protein 6.7 g/dL (6.5-8.0); Triglycerides 74 mg/dL
[2021-02-04 14:37] LABS: Prostate Specific Antigen Scr 0.61 ng/mL (<0.05-4.0); TSH reflex Free T4 2.64 uIU/mL (0.32-4.0)
== END 2021-02-04 10:54 | disposition home or self-care (01) ==
LOC: HO.HMGCLDS 10:53
PROVIDERS: Nurse Practitioner Family; Visit Provider Physician Assistant Medical
DX: Z12.5 Encounter for screening for malignant neoplasm of prostate (principal); D61.818 Other pancytopenia; I10 Essential (primary) hypertension; K52.9 Noninfective gastroenteritis and colitis, unspecified
CPT/HCPCS: 36415; 80053; 80061; 84153; 84443; 85025

== ENCOUNTER 2021-02-23 12:51 | Outpatient (REF) | payer MEDICARE, SELFPAY ==
[2021-02-23 14:50] LABS: Alanine Aminotransferase 41 U/L (0-40); Albumin Level 4.1 g/dL (3.5-5.0); Alkaline Phosphatase 78 U/L (39-117); Anion Gap 14 (12-20); Aspartate Amino Transferase 26 U/L (5-37); Bilirubin Total 0.7 mg/dL (0.0-1.0); Blood Urea Nitrogen 13 mg/dL (9-16); Calcium 9.2 mg/dL (8.4-10.2); Carbon Dioxide 26 mmol/L (22-29); Chloride 103 mmol/L (96-108); Estimated Glomerular Filt Rate > 60; Glucose Random 101 mg/dL (60-115); Potassium 4.4 mmol/L (3.3-5.1); Sodium 139 mmol/L (135-145); Total Protein 6.8 g/dL (6.5-8.0)
== END 2021-02-23 12:52 | disposition home or self-care (01) ==
LOC: HO.HMGCLDS 12:51
PROVIDERS: PCP Nurse Practitioner Family; Visit Provider Nurse Practitioner Family
DX: E87.1 Hypo-osmolality and hyponatremia (principal)
CPT/HCPCS: 36415; 80053

== ENCOUNTER 2021-04-11 09:00 | Outpatient (REF) | payer MEDICARE, SELFPAY ==
[2021-04-11 11:27] LABS: MANUAL DIFF FLAG NO
[2021-04-11 11:43] LABS: Basophils Absolute Auto 0.1 X10*3/uL (0.0-0.2); Basophils Percent Auto 0.9 % (0-2); Eosinophils Absolute Auto 0.1 X10*3/uL (0.0-0.4); Eosinophils Percent Auto 1.3 % (0-4); Hematocrit 42.2 % (42-52); Hemoglobin 13.4 g/dl (14.0-18.0); Imm Gran Abs Auto 0.03 X10*3/uL (0.00-0.03); Imm Gran Pct Auto 0.4 % (0.0-0.4); Lymphocytes Absolute Auto 1.8 X10*3/uL (1.2-4.9); Lymphocytes Percent Auto 26.6 % (20-40); Mean Corpuscular HGB Conc 31.8 g/dl (31.0-36.0); Mean Corpuscular Volume 94.4 fL (80-98); Mean Platelet Volume 12.3 fL (9.4-12.4); Monocytes Absolute Auto 0.6 X10*3/uL (0.1-1.2); Monocytes Percent Auto 9.4 % (2-11); Neutrophils Absolute Auto 4.1 X10*3/uL (2.0-8.3); Neutrophils Percent Auto 61.4 % (45-73); Platelet Count 276 X10*3/uL (160-400); Red Blood Count 4.47 X10*6/uL (4.60-5.80); Red Cell Distribution Width 12.8 % (11.0-16.0); White Blood Count 6.7 X10*3/uL (4.8-10.8)
[2021-04-11 12:16] LABS: Ferritin 217 ng/mL (20-250)
[2021-04-11 12:19] LABS: Folate 5.7 ng/mL (> or = 4.0); Vitamin B12 295 pg/mL (200-900)
== END 2021-04-11 09:01 | disposition home or self-care (01) ==
LOC: HO.HMGCLDS 09:00
PROVIDERS: PCP Nurse Practitioner Family; Visit Provider Nurse Practitioner Family
DX: D64.9 Anemia, unspecified (principal)
CPT/HCPCS: 36415; 82607; 82728; 82746; 85025

== ENCOUNTER 2021-05-23 11:20 | Outpatient (REF) | payer MEDICARE, SELFPAY ==
--- NOTE | ~2021-05-23 | US_ITS ---
EXAMINATION: US VENOUS ULTRASOUND WITH DOPPLER LOWER EXTREMITY, BILATERAL CLINICAL INFORMATION: This is a 65-year-old male with leg edema. Possible deep vein thrombosis. COMPARISON: None TECHNIQUE: Ultrasound of the deep veins is performed from the hip to the calf with compression sonography and color and pulse Doppler assessment. Spectral analysis with color-flow imaging is performed. FINDINGS: RIGHT: There is normal venous compression and respiratory variation and augmented flow. The visualized common femoral vein, superficial femoral vein, profunda femoral vein, popliteal vein, and the trifurcation region shows no evidence of deep venous thrombosis. There is no significant popliteal fossa cyst. LEFT: There is normal venous compression and respiratory variation and augmented flow. The visualized common femoral vein, superficial femoral vein, profunda femoral vein, popliteal vein, and the trifurcation region shows no evidence of deep venous thrombosis. There is no significant popliteal fossa cyst. Incidental note is made of a large left great saphenous vein with reflux. If the patient's symptoms persist, followup ultrasound in 5 days 7 days might be of value to exclude proximal propagation from a non-visualized calf vein. US/US venous duplex LE BI IMPRESSION: 1. No DVT demonstrated in the bilateral lower extremity. 2. There is bilateral subcutaneous edema.
== END 2021-05-23 11:21 | disposition home or self-care (01) ==
LOC: HO.HMGCX 11:20
PROVIDERS: PCP Nurse Practitioner Family; Visit Provider Internal Medicine Nephrology
DX: R60.0 Localized edema (principal); E87.1 Hypo-osmolality and hyponatremia
CPT/HCPCS: 93970

== ENCOUNTER 2023-01-15 07:11 | Outpatient (REF) | payer MEDICARE, SELFPAY ==
[2023-01-15 11:32] LABS: Appearance Urine Clear; Color Urine Yellow; Glucose Urine UA Negative (Negative); Leukocyte Esterase Urine Negative (Negative); Nitrite Urine Negative (Negative); PH 5.5 (5.0-9.0); Urine Blood Negative (Negative); Urine Ketones 15 mg/dL (Negative); Urine Protein Negative (Neg-Trace)
[2023-01-15 12:23] LABS: Alanine Aminotransferase 22 U/L (0-40); Albumin Level 4.3 g/dL (3.5-5.0); Alkaline Phosphatase 65 U/L (39-117); Anion Gap 11 (12-20); Aspartate Amino Transferase 26 U/L (5-37); Blood Urea Nitrogen 15 mg/dL (9-16); Calcium 9.3 mg/dL (8.4-10.2); Carbon Dioxide 25 mmol/L (22-29); Chloride 106 mmol/L (96-108); Cholesterol 235 mg/dL; Estimated Glomerular Filt Rate > 60; Glucose Fasting 112 mg/dL (60-99); HDL Cholesterol 41 mg/dL; LDL Cholesterol Calculated 179 mg/dl; Sodium 138 mmol/L (135-145); Triglycerides 79 mg/dL
[2023-01-15 12:29] LABS: Prostate Specific Antigen Scr 1.42 ng/mL (<0.05-4.0); TSH reflex Free T4 2.02 uIU/mL (0.32-4.0)
== END 2023-01-15 07:12 | disposition home or self-care (01) ==
LOC: HO.HMGCLDS 07:11
PROVIDERS: PCP Nurse Practitioner Family; Visit Provider Nurse Practitioner Family
DX: Z12.5 Encounter for screening for malignant neoplasm of prostate (principal); I10 Essential (primary) hypertension
CPT/HCPCS: 36415; 80053; 80061; 81003; 84153; 84443

== ENCOUNTER 2023-04-17 07:19 | Day surgery (SDC) | payer MEDICARE, SELFPAY ==
--- NOTE | 2023-04-16 14:36 | P.CONAN_ITS ---
HPI - Anesthesia Eval Consult details Narrative: 67yo M for Colonoscopy 04/16/23 Pt called stating that he didn't want sedation and he had discussed with Dr Ordaz. Educated on MAC, questions answered. Pt will decide after speaking with Dr Ordaz preop. Dr Ordaz's office staff made aware and they will send message to Dr Ordaz. [facility] Active Problems Active Problems: All Active Problems (Updated 04/16/23 @ 13:17 by Gita Moreno RN) Altered mental status (Acute) Gastroenteritis (Acute) Pancytopenia (Acute) Alcohol use disorder (Acute) HTN (hypertension) (Acute) Screening PSA (prostate specific antigen) (Acute) Anemia (Acute) Screening for colon cancer (Acute) Dyslipidemia (Acute) PVD (peripheral vascular disease) (Acute) Varicose veins of both legs with edema (Acute) Acute hyponatremia (Acute) Past Medical History Medical History (Updated 04/16/23 @ 13:17 by Gita Moreno RN) Acute hyponatremia Alcohol abuse Asthma Foot infection GERD (gastroesophageal reflux disease) Hemorrhoids Pneumonia Surgical History Surgical History (Updated 04/16/23 @ 13:17 by Gita Moreno RN) H/O colonoscopy Hx of tonsillectomy Social History Social History Household Members: None Housing: House Do you presently have visiting nurse or other home services: No Alcohol intake: current Alcohol intake frequency: former alcohol drinker Alcohol type: wine Patient Tobacco Use Status: Never used Tobacco e-Cigarette/Vaping Use: Never Used Second Hand Smoke Exposure: No Are you DNR?: No Advance Directives: No Advance Directives Information Provided: Yes Advance Directives Date on File: 01/26/21 Nutrition Risks: No Nutritional Risk service: No Current occupational status: employed Current occupational exposures/hazards: No Cognitive needs: No Hearing needs: No Vision needs: No Meds Allergies Allergy/AdvReac Type Severity Reaction Status Date / Time amoxicillin [AMOXICILLIN] Allergy Unknown UNKNOWN, Verified 01/17/23 10:53 nausea and vomiting penicillin V Allergy Unknown rash Verified 01/17/23 10:53 Penicillins [PENICILLINS] Allergy Unknown UNKNOWN Verified 01/17/23 10:53 Erythromycin Allergy Unknown Rash Uncoded 01/17/23 10:53 Home Medications Medication Instructions Recorded Confirmed Last Taken Type No Known Home Meds 01/17/23 01/17/23 Unknown History Exam Exam Date and Time: April 16, 2023 1436 Pertinent Lab Results Pertinent Lab Results: Laboratory Tests 04/11/21 01/15/23 09:09 07:17 WBC 6.7 Hgb 13.4 L Hct 42.2 Plt Count 276 Sodium 138 Potassium 4.0 Chloride 106 Carbon Dioxide 25 BUN 15 Creatinine 0.90 Assessment and Plan Assessment Anesthesia Assessment: Chart Reviewed
[2023-04-17 06:14] VITALS: BMI 26.6
--- OUTSIDE RECORDS SUMMARY | 2023-04-17 07:20 | XMS_ITS | Continuity of Care Document ---
Author Name Unknown Organization [facility] ter Address [address] [place] [id number]- Care Team Providers Care Revenue Liaison Name Role Phone Not on Staff, PCP Primary Care Physician Unavail able Encounter [facility] Date(s): 05/17/21 - 06/17/[address] [address]- Attending Physician: Nilo Prasad MD Admitting Physician: Nilo Prasad MD Referring Physician: Nilo Prasad MD
--- OUTSIDE RECORDS SUMMARY | 2023-04-17 07:20 | XMS_ITS ---
Author Name Soy Ordaz Jr Address [address] [place] [address] Organization [facility] Address [address] [place] [address] Care Team Providers Care Internet Marketer Name Role Phone Orlin Soy Unavailable [phone] PROBLEMS Type Condition ICD9-CM Code DEQ15-HC Code Onset Dates Condition Status SNOMED Code Problem Abdominal pain, epigastric R10.13 Active 28724653 Problem Gastro-esophagea l reflux disease without esophagitis K21.9 Active 848679978 Problem Colon cancer screening Z12.11 Active 280985903 ALLERGIES Substance Reaction Event Type Date Status Amoxicillin Unknown Drug Allergy January, Active Penicillin Unknown Drug Allergy January, Active ENCOUNTERS Encounter Location Date Diagnosis [facility] Outpatient [address], [place] [phone] Mar, [facility] [address] [place] [phone] Mar, [facility] [address] [place] [phone] Mar, [facility] [address] [place] [phone] January, Colon cancer screening Z12.11 and Gastro-esophageal reflux disease without esophagitis K21.9 [facility] [address] [place] [phone] Nov, [facility] [address] [place] [phone] Nov, Gastroesophageal reflux disease without esophagitis K21.9 [facility] [address] [place] [address] Nov, Gastroesophageal reflux disease without esophagitis K21.9 [facility] Outpatient [address] [place] [phone] Mar, [facility] [address] [place] [phone] Dec, Gastroesophageal reflux disease without esophagitis K21.9 ; Abdominal pain, epigastric R10.13 and Colon cancer screening Z12.11 [facility] Outpatient [address] [place] [phone] January, [facility] ER [address] [place] [phone] Nov, IMMUNIZATIONS No Known Immunizations SOCIAL HISTORY Never Assessed REASON FOR REFERRAL FUNCTIONAL STATUS PLAN OF CARE Activity Details VITAL SIGNS Weight 180 lbs 2023-01-22 Weight 191 lbs 2015-12-30 Height 69 in 2023-01-22 Height 69 in 2015-12-30 BMI 26.58 kg/m2 2023-01-22 BMI 28.20 kg/m2 2015-12-30 Heart Rate 72 /min 2015-12-30 Temperature 98.7 degrees Fahrenheit Blood pressure systolic 000 mm Hg Blood pressure diastolic 00 mm Hg 2023-01 MEDICATIONS Medication Instructions Dosage Frequency Start Date End Date Duration Status MiraLax (colon prep) 17 GM/SCOOP Orally begin at 5:00 p.m. the day before the procedure mixed with Gatorade or Crystal Light January, 1 day Active PROCEDURES No Known procedures RESULTS Name Result Date Reference Range OVA & PARASITES (O&P) 2016-01-09 OVA & PARASITES SEE NOTE () OVA & PARASITES (O&P) 2016-01-08 OVA & PARASITES SEE NOTE () OVA & PARASITES (O&P) 2016-01-07 OVA & PARASITES SEE NOTE () OCCULT BLOOD STOOL X3 (OBS) 2016-01-03 OCCULT BLOOD STOOL-1 NEG NEG OCCULT BLOOD STOOL-1 DATE 12/31/15 OCCULT BLOOD STOOL-2 NEG NEG OCCULT BLOOD STOOL-2 DATE 01/01/16 OCCULT BLOOD STOOL-3 NEG NEG OCCULT BLOOD STOOL-3 DATE 01/02/16 REASON FOR VISIT screening, fyi veronica , Has pending pa been approved?, Patient presents today for a colon screening, [facility] insurance is inactive, Needs refill on Omeprazole, Looking for a refill on Omeprazole, screening colonoscopy, pre-colon,abd pain Insurance Providers Health Insurance Type Health Plan Insurance Address Health Plan Insurance Phone Health Plan Insurance Name Health Plan Coverage Dates Member ID Patient Relationship to Subscriber Patient Address Patient Phone Patient Name Patient Date of Subscriber ID Subscriber Name Subscriber Date of Group No [facility] [address] [facility] [address] [facility] DELIA SKIP [id number] [facility] Medicare Advantage Plan [address] [address] [facility] [address] [employer] Medicare Advantage Plan self DELIA WHITEE [id number]
[2023-04-17] MEDS: Lactated Ringers 1,000 ML 100 ML IVCONT (08:09)
[2023-04-17 08:10] VITALS: BP 148/80; PULSE 97; RESP 18; TEMP 37; O2SAT 99
--- NOTE | 2023-04-17 08:50 | PC.NURSE ---
patient is not having anesthesia per dr. ordaz as well. IV placed at Dr. Ordaz request.
--- NOTE | 2023-04-17 08:51 | MHC.SHP ---
Pre-Procedural Eval Section A Date of Service: 04/17/23 Section B Chief Complaint: Encounter for screening for malignant neoplasm of Details of Present Illness: see H*P no changes Relevant Family History (Specify if Yes): No Relevant Social History: None Present Medications: see Short Stay Collaborative assessment Medical History: No relevant PMH History of Previous Operations: No relevant previous surgery Allergies: Allergies Allergy/AdvReac Type Severity Reaction Status Date / Time amoxicillin [AMOXICILLIN] Allergy Unknown UNKNOWN, Verified 01/17/23 10:53 nausea and vomiting penicillin V Allergy Unknown rash Verified 01/17/23 10:53 Penicillins [PENICILLINS] Allergy Unknown UNKNOWN Verified 01/17/23 10:53 Erythromycin Allergy Unknown Rash Uncoded 01/17/23 10:53 Review of Systems Sugical H&P ROS: Negative: Constitution, Cardiovascular, Respiratory, Neurological, Psychiatric, Hem-Onc, Allergic/Immunologic, Gastrointestinal, Genitourinary, Musculoskeletal, Integumentary, Endocrine and Eyes/Ears/Nose/Throat Exam Surgical H&P Exam: Normal: HEENT, Normal: Heart, Normal: Lungs, Normal: Extremities, Normal: Abdomen, Normal: Skin and Normal: Neurological Plan Diagnosis/Plan: Unchanged I have reviewed the history and physical and performed a pertinent physical examination on my patient. No changes have occurred unless specified. Time Spent With Patient Time: Total time managing care of this patient today ____ minutes.
[2023-04-17 08:56] VITALS: BP 136/91; PULSE 106; RESP 20; O2SAT 99
--- NOTE | 2023-04-17 09:28 | PM.OP ---
Brief Operative Note Date of Service: 04/17/23 Pre-op diagnosis: screening Post-op diagnosis: same Procedure: colonsocopy Surgeon: Soy Ordaz Anesthesia: MAC Was an Instructional Media Services Technician used for this Procedure?: No Estimated blood loss (mL): 0 Pathology: none sent Condition: stable Disposition: PACU
[2023-04-17 09:32] VITALS: BP 125/81; PULSE 83; RESP 20; TEMP 36.6; O2SAT 98
--- NOTE | 2023-04-17 09:44 | OP_ITS ---
DATE OF SERVICE: 04/17/2023 SURGEON: Soy Ordaz MD INDICATIONS: Colon cancer screening and prior history of adenomatous colon polyps. PREOPERATIVE DIAGNOSIS: POSTOPERATIVE DIAGNOSIS: PROCEDURE PERFORMED: ESTIMATED BLOOD LOSS: COMPLICATIONS: ANESTHESIA: ASSISTANTS: SPECIMENS: PROCEDURE: Colonoscopy to the cecum. MEDICATIONS: None per patient's request. DESCRIPTION OF PROCEDURE: History and physical performed, the risks and benefits of the procedure were explained to the patient. Informed consent was obtained. The patient was placed in the left lateral decubitus position. A digital rectal exam was performed and was found to be normal. The Olympus pediatric video colonoscope was introduced into the rectum and advanced to the cecum without difficulty. The cecum was identified by transillumination, palpation, and identification of ileocecal valve. Examination was performed, the scope was removed. He tolerated the procedure well and was turned recovery in stable condition. FINDINGS: The terminal ileum was not examined. The visualized colonic mucosa was normal. The quality of prep was good. There was some liquid stool and undigested food material coating the mucosa mainly in the right colon. This was washed and suctioned. No polyps were identified. There was moderate sigmoid diverticulosis with scattered diverticula throughout the remainder of the colon. Retroflexed examination showed moderate-sized internal hemorrhoids and 2 small skin tags. IMPRESSION: Normal colonoscopy. RECOMMENDATIONS: 1. Follow up as needed. 2. Repeat colonoscopy is recommended in 10 years for average risk individuals. MD AVRIL Edouard/MODL / [id number]
[2023-04-17 09:47] VITALS: BP 130/78; PULSE 75; RESP 20; TEMP 36.6; O2SAT 99
== END 2023-04-17 10:08 | disposition home or self-care (01) ==
PROVIDERS: PCP Nurse Practitioner Family; Visit Provider Internal Medicine Gastroenterology
PROC: 0DJD8ZZ Inspection of Lower Intestinal Tract, Via Natural or Artificial Opening Endoscopic (ICD-10-PCS; CPT 45378; principal; 2023-04-17 08:30)
DX: Z12.11 Encounter for screening for malignant neoplasm of colon (principal); K57.30 Diverticulosis of large intestine without perforation or abscess without bleeding; K64.8 Other hemorrhoids; K64.4 Residual hemorrhoidal skin tags; K21.9 Gastro-esophageal reflux disease without esophagitis; Z86.010 Personal history of colon polyps
CPT/HCPCS: G0105

== ENCOUNTER 2024-01-02 09:30 | Outpatient (AMB) | payer MEDICARE, SELFPAY ==
[2024-01-02 09:36] VITALS: BP 152/98; PULSE 121; TEMP 36.5; O2SAT 99; BMI 25.0
--- NOTE | 2024-01-02 09:36 | AM.OFFWIN_ITS ---
Intake Vital Signs 01/02/24 09:36 Height 5 ft 9 in Weight 169 lb 2 oz BMI 25.0 BP 152/98 H Blood Pressure Location Rt brachial Position Sitting Pulse 121 H Pulse Source Pulse Oximeter Temp 97.7 F Temp Source Temporal Artery Scan Pulse Oximetry (%) 99 Oxygen Delivery Method Room Air Intake Visit Reasons: EP respiratory/sinus/stomach (lobby) Intake Note: Pt presents to the office today for c/o respiratory,sinus, and stomach pain that started a few weeks ago. He states his respiratory issues has improved but he is having bad sinus pressure and green mucus. He states he thinks his stomach issue has been having to do with him drinking 5-6 glasses of wine for over a month now. Pt states he was hospitalizedd 3 years ago for alcohol poisoning and states he is interested in getting treatment again without being hospitalized if possible. Patient Tobacco Use Status: Never used Tobacco Accompanied by: Brother Allergies amoxicillin [AMOXICILLIN] Allergy (Unknown, Verified 01/02/24 09:38) UNKNOWN, nausea and vomiting penicillin V Allergy (Unknown, Verified 01/02/24 09:38) rash Penicillins [PENICILLINS] Allergy (Unknown, Verified 01/02/24 09:38) UNKNOWN Erythromycin Allergy (Unknown, Uncoded 01/02/24 09:38) Rash HPI HPI Comments History of Present Illness Details 68 y/o male patient who presents to walk in clinic with c/o URI symptoms for few weeks. Accompanied by brother who assists with history taking. Pt reports Alcohol abuse history (binge drinking wine) - has work stress. Denies suicide and does not have a plan. Pt asking for help to quit drinking. [facility] Medical History Foot infection Pneumonia Hemorrhoids Alcohol abuse Acute hyponatremia GERD (gastroesophageal reflux disease) Asthma Surgical History Hx of tonsillectomy H/O colonoscopy Social History Household Members: None Housing: House Do you presently have visiting nurse or other home services: No Alcohol intake: current Alcohol intake frequency: former alcohol drinker Alcohol type: wine Comment: for impulsivity - camera applied - pt agreeable, aware:right to refuse Patient Tobacco Use Status: Never used Tobacco e-Cigarette/Vaping Use: Never Used Second Hand Smoke Exposure: No Advance Directives Date on File: 01/26/21 service: No Current occupational status: employed Current occupational exposures/hazards: No Cognitive needs: No Hearing needs: No Vision needs: No Review of Systems Const All systems reviewed & are unremarkable except as noted in HPI and below Physical Exam Vital Signs: Last Vital Signs Temp 97.7 F 01/02/24 09:36 Pulse 121 H 01/02/24 09:36 BP 152/98 H 01/02/24 09:36 Pulse Ox 99 01/02/24 09:36 Oxygen Delivery Method Room Air 01/02/24 09:36 BMI result Body Mass Index 25.0 Const General: comfortable, no acute distress and poor hygiene Nutritional Appearance: thin Orientation/consciousness: patient oriented x3 HEENT Head: Yes normocephalic Ears: external ears normal and TM's normal bilaterally General nose exam: Abnormal mucous membranes and turbinates present boggy and erythematous and Nasal discharge present Face and sinus: Yes sinus tenderness Mouth: moist mucous membranes Throat: Yes posterior oropharynx normal Resp Effort & Inspection: normal respiratory effort and able to speak in complete sentences Auscultation: clear to auscultation bilaterally, no crackles, no rales, no rhonchi and no wheezes Cardio Rate: regular rate Rhythm: regular rhythm Neuro General: patient oriented x3, gait normal and moves all extremities Psych Speech and movement: Normal speech and movement present Affect: Sad affect present Attitude: cooperative Thought content: suicidality, no homicidality, no delusions, no hallucinations and Depressive thoughts present Insight: Good insight present (Psych) Judgement: Good judgement present (Psych) Assessment & Plan Assessment & Plan (1) Acute rhinosinusitis: Code(s): J01.90 - Acute sinusitis, unspecified Plan: - Abx as directed (2) Bacterial conjunctivitis: Code(s): H10.9 - Unspecified conjunctivitis Plan: - Good eye hygiene - Take medications as prescribed Plan Had a lengthy discussion with Pt about quiting. Advised Crisis line if needed. Denies any thoughts or plan in place. Orders: Orders SARS-CoV2/FLU/RSV Today J01.90 - Acute sinusitis, unspecified Medications: New ciprofloxacin HCl 0.3% put 1-2 drps in affected eye(s) every 2hr up to 8 times/day x2days; then 4 times/day x5days ophthalmic (eye) 5 mL 0RF H10.9 - Uns pecified conjunctivitis doxycycline hyclate 100 mg PO BID 14 caps 0RF 7 days J01.90 - Acute sinusitis, unspecified Coding Level of Care Code Est Pt Level 4 (34741) Diagnoses Acute rhinosinusitis J01.90 Bacterial conjunctivitis H10.9 Time Spent (min) 20
== END 2024-01-02 10:19 | disposition home or self-care (01) ==
PROVIDERS: PCP Nurse Practitioner Family; Visit Provider Nurse Practitioner Family
DX: J01.90 Acute sinusitis, unspecified (principal); H10.9 Unspecified conjunctivitis
CPT/HCPCS: 99214

== ENCOUNTER 2024-01-02 10:10 | Outpatient (REF) | payer MEDICARE, SELFPAY ==
[2024-01-02 15:34] LABS: Influenza A PCR NEGATIVE (Negative); Influenza B PCR NEGATIVE (Negative); Resp Syncy Virus RNA Qual PCR NEGATIVE (Negative); SARS COV2 PCR INHOUSE NEGATIVE (Negative)
== END 2024-01-02 10:11 | disposition home or self-care (01) ==
LOC: HO.LAB 10:10
PROVIDERS: Visit Provider Nurse Practitioner Family
DX: Z13.89 Encounter for screening for other disorder (principal)
CPT/HCPCS: 0241U

== ENCOUNTER 2024-01-02 15:36 | Emergency (ER) | payer MEDICARE, SELFPAY ==
[2024-01-02 16:03] VITALS: BP 135/96; PULSE 109; RESP 18; TEMP 36.3; O2SAT 97; BMI 25.1
--- NOTE | 2024-01-02 16:03 | ED_ITS ---
HPI - General Adult General Chief complaint: ETOH/Substance Use Stated complaint: alcohol poisoning? Time Seen by Provider: 01/02/24 16:43 Source: patient Mode of arrival: ambulatory Limitations: no limitations History of Present Illness HPI narrative: Patient alcoholic drinks wine 1-2 pint a day stop drinking about 3 years ago and was sober for 2 years and for last 6 months been drinking heavy for last 1 week patient has been vomiting with epigastric pain radiating to the back unable to drink much alcohol last drink was yesterday a.m. feel little shaky no fever no chills has some clear rhinorrhea no history of pancreatitis no melena vomiting is clear watery Related Data Previous Rx's ?Medication ?Instructions ?Recorded ciprofloxacin HCl 0.3 % eye drops See Rx Instructions ophthalmic 01/02/24 (eye) .COMPLEX #5 mL doxycycline hyclate 100 mg capsule 100 mg PO BID 7 days #14 caps 01/02/24 folic acid 1 mg tablet 1 mg PO DAILY #90 tabs 01/02/24 lorazepam 2 mg tablet (Ativan) 2 mg PO Q6-8H PRN alcohol 01/02/24 withdrawal #20 tabs ondansetron 4 mg disintegrating 4 mg PO Q6-8H PRN nausea and 01/02/24 tablet vomiting #20 tabs pantoprazole 40 mg tablet,delayed 40 mg PO DAILY #30 tabs 01/02/24 release (Protonix) thiamine HCl (vitamin B1) 100 mg 100 mg PO DAILY #90 tabs 01/02/24 tablet Allergies Allergy/AdvReac Type Severity Reaction Status Date / Time amoxicillin [AMOXICILLIN] Allergy Unknown UNKNOWN, Verified 01/02/24 16:08 nausea and vomiting penicillin V Allergy Unknown rash Verified 01/02/24 16:08 Penicillins [PENICILLINS] Allergy Unknown UNKNOWN Verified 01/02/24 16:08 Erythromycin Allergy Unknown Rash Uncoded 01/02/24 09:38 Review of Systems 2 Review of Systems: Yes all other systems are reviewed and are negative PMFSH Past Medical History Medical History Foot infection Pneumonia Hemorrhoids Alcohol abuse Acute hyponatremia GERD (gastroesophageal reflux disease) Asthma Surgical History Hx of tonsillectomy H/O colonoscopy Social History Social History Household Members: None Housing: House Do you presently have visiting nurse or other home services: No Alcohol intake: current Alcohol intake frequency: former alcohol drinker Alcohol type: wine Comment: for impulsivity - camera applied - pt agreeable, aware:right to refuse Patient Tobacco Use Status: Never used Tobacco Smoked in Last 30 Days: No e-Cigarette/Vaping Use: Never Used Second Hand Smoke Exposure: No Use of substances other than those prescribed or required for medical reasons: No Advance Directives: Yes Advance Directives on File: Yes Advance Directives Date on File: 01/26/21 service: No Current occupational status: employed Current occupational exposures/hazards: No Cognitive needs: No Hearing needs: No Vision needs: No Physical Exam ED Vital Signs: Vital Signs - 24 hr 01/02/24 16:03 01/02/24 16:43 01/02/24 19:40 Temperature 97.3 F 97.7 F Pulse Rate 109 H 105 H 109 H Respiratory Rate 18 18 18 Blood Pressure 135/96 H 146/89 H 124/87 Pulse Oximetry 97 97 97 Oxygen Delivery Method Room Air Room Air Room Air 01/02/24 20:41 Temperature 98 F Pulse Rate 101 H Respiratory Rate 18 Blood Pressure 139/96 H Pulse Oximetry 98 Oxygen Delivery Method Room Air BMI result Body Mass Index 25.1 Appearance: Alert. Oriented X3. Anxious Eyes: PERRLA, No Nystagmus ENT: Pharynx normal. Oral Mucosa moist Neck: Normal inspection. Neck supple. CVS: Tachycardic. Pulses normal. Respiratory: No respiratory distress. Equal air entry bilateral, no wheezing/rales/rhonchi Abdomen: Soft , tender in epigastric area. Bowel sounds are present, no mass palpable, no CVA tenderness Skin: Skin warm and dry. Normal skin color. Normal skin turgor. Extremities: No lower extremity edema. No calf tenderness Neuro: Oriented X 3. No motor deficit. No sensory deficit.No cerebellar signs , cranial nerves II-XII intact Course Course Course Narrative: RME:?nausea, vomiting, and epigastric abdominal pain. last etoh drink yesterday morning. labs, ct scan ordered. Full HPI, ROS and PE to be performed by the primary ED provider. Medications Administered Discontinued Medications Generic Name Dose Route Start Last Admin Trade Name Freq PRN Reason Stop Dose Admin Famotidine 20 mg 01/02/24 17:06 01/02/24 17:56 Famotidine/Pf 20 Mg/2 Ml Vial IVPUSH 01/02/24 17:07 20 mg ONCE ONE Administration Folic Acid 1 mg 01/02/24 20:15 01/02/24 20:33 Folic Acid 1 Mg Tablet PO 01/02/24 20:16 1 mg ONCE ONE Administration Sodium Chloride 1,000 mls @ 999 mls/hr 01/02/24 16:51 01/02/24 20:09 Ns IV 01/02/24 17:51 Infused .Q1H1M ONE Infusion Sodium Chloride 1,000 mls @ 999 mls/hr 01/02/24 18:35 01/02/24 20:52 Ns IV 01/02/24 19:35 Infused .Q1H1M ONE Infusion Lorazepam 2 mg 01/02/24 16:51 01/02/24 17:11 Lorazepam 2 Mg/Ml Vial IVPUSH 01/02/24 16:52 2 mg ONCE ONE Administration Lorazepam 2 mg 01/02/24 19:17 01/02/24 19:33 Lorazepam 1 Mg Tablet PO 01/02/24 19:18 2 mg ONCE ONE Administration Ondansetron HCl 4 mg 01/02/24 16:51 01/02/24 17:09 Ondansetron Hcl 4 Mg/2 Ml Vial IVPUSH 01/02/24 16:52 4 mg ONCE ONE Administration Thiamine HCl 100 mg 01/02/24 20:15 01/02/24 20:33 Thiamine Hcl 100 Mg Tablet PO 01/02/24 20:16 100 mg ONCE ONE Administration Medical Decision Making Medical Decision Making [facility] Narrative: Patient alcoholic wants to stop drinking came in acute vomiting likely from alcohol withdrawal responded to Ativan and Zofran no significant abdominal pain patient feeling much better during stay in the ER after receiving IV fluids and Ativan would like to stop alcohol but on his own who like take lorazepam prescription and slowly will stop drinking alcohol Differential Diagnosis Differential Diagnoses: The differential diagnosis associated with the presentation includes Alcohol withdrawal/metabolic abnormalities Lab Data [facility] Lab Attestation statement: I reviewed the patient's lab results. 01/02/24 16:43 01/02/24 16:43 Labs: Lab Results 01/02/24 Range/Units 16:43 WBC 6.4 (4.8-10.8) X10*3/uL RBC 5.12 (4.60-5.80) X10*6/uL Hgb 15.8 (14.0-18.0) g/dl Hct 44.4 (42.0-52.0) % MCV 86.7 (80.0-98.0) fL MCH 30.9 (27.0-33.0) pg MCHC 35.6 (31.0-36.0) g/dl RDW 13.4 (11.0-16.0) % Plt Count 145 L (160-400) X10*3/uL MPV 9.8 (9.4-12.4) fL Immature Gran % (Auto) 0.5 H (0.0-0.4) % Neut % (Auto) 70.4 (45-73) % Lymph % (Auto) 18.4 L (20-40) % Republic % (Auto) 7.7 (2-11) % Eos % (Auto) 2.5 (0-4) % Baso % (Auto) 0.5 (0-2) % Lymph # (Auto) 1.2 (1.2-4.9) X10*3/uL Republic # (Auto) 0.5 (0.1-1.2) X10*3/uL Eos # (Auto) 0.2 (0.0-0.4) X10*3/uL Baso # (Auto) 0.0 (0.0-0.2) X10*3/uL Abs Immat Gran (auto) 0.03 (0.00-0.03) X10*3/uL Absolute Neuts (auto) 4.5 (2.0-8.3) x10*3/uL Absolute Nucleated RBC 0.000 (0.0-0.012) X10*3/uL Nucleated RBC % (auto) 0.0 (0.0-0.2) /100WBC Sodium 134 L (135-145) mmol/L Potassium 4.2 (3.3-5.1) mmol/L Chloride 91 L (96-108) mmol/L Carbon Dioxide 25 (22-29) mmol/L Anion Gap 22 H (12-20) BUN 15 (9-16) mg/dL Creatinine 0.88 (0.5-1.4) mg/dL Estim Creat Clear Calc 78.1 Estimated GFR > 60 Random Glucose 122 H (60-115) mg/dL Calcium 9.5 (8.4-10.2) mg/dL Magnesium 2.0 (1.6-2.6) mg/dL Total Bilirubin 1.4 H (0.0-1.0) mg/dL AST 91 H (5-37) U/L ALT 113 H (0-40) U/L Alkaline Phosphatase 87 (39-117) U/L Total Protein 7.7 (6.5-8.0) g/dL Albumin 4.4 (3.5-5.0) g/dL Triglycerides 52 (<150) mg/dL Lipase 20 (8-78) U/L Ethyl Alcohol < 10 mg/dL Discharge Plan Discharge Clinical Impression: Alcohol abuse with withdrawal, Acute alcoholic gastritis Patient Disposition: Home, Self-Care Instructions: Gastritis (ED), Alcohol Withdrawal (ED) Additional Instructions: Stop drinking alcohol Ativan for alcohol withdrawal as prescribed Take Protonix daily for gastritis Medicine for nausea Follow with detox Prescriptions: New lorazepam [Ativan] 2 mg tablet 2 mg PO Q6-8H PRN (Reason: alcohol withdrawal) Qty: 20 0RF pantoprazole [Protonix] 40 mg tablet,delayed release (DR/EC) 40 mg PO DAILY Qty: 30 0RF thiamine HCl (vitamin B1) 100 mg tablet 100 mg PO DAILY Qty: 90 0RF folic acid 1 mg tablet 1 mg PO DAILY Qty: 90 0RF ondansetron 4 mg tablet,disintegrating 4 mg PO Q6-8H PRN (Reason: nausea and vomiting) Qty: 20 0RF No Action ciprofloxacin HCl 0.3 % drops See Rx Instructions ophthalmic (eye) .COMPLEX Qty: 5 0RF Rx Instructions: put 1-2 drps in affected eye(s) every 2hr up to 8 times/day x2days; then 4 times/day x5days ophthalmic (eye) doxycycline hyclate 100 mg capsule 100 mg PO BID 7 Days Qty: 14 0RF Interventions: ED Discharge Assessment Last Done: 01/02/24 20:41 Discharge Date/Time: 01/02/24 20:52 Print Language: Indonesian
[2024-01-02 16:43] VITALS: BP 146/89; PULSE 105; RESP 18; O2SAT 97
[2024-01-02 16:48] LABS: MANUAL DIFF FLAG NO
[2024-01-02 16:49] LABS: Basophils Percent Auto 0.5 % (0-2); Eosinophils Absolute Auto 0.2 X10*3/uL (0.0-0.4); Eosinophils Percent Auto 2.5 % (0-4); Hematocrit 44.4 % (42.0-52.0); Hemoglobin 15.8 g/dl (14.0-18.0); Imm Gran Abs Auto 0.03 X10*3/uL (0.00-0.03); Imm Gran Pct Auto 0.5 % (0.0-0.4); Lymphocytes Absolute Auto 1.2 X10*3/uL (1.2-4.9); Lymphocytes Percent Auto 18.4 % (20-40); Mean Corpuscular HGB Conc 35.6 g/dl (31.0-36.0); Mean Corpuscular Hemoglobin 30.9 pg (27.0-33.0); Mean Corpuscular Volume 86.7 fL (80.0-98.0); Mean Platelet Volume 9.8 fL (9.4-12.4); Monocytes Absolute Auto 0.5 X10*3/uL (0.1-1.2); Monocytes Percent Auto 7.7 % (2-11); Neutrophils Absolute Auto 4.5 x10*3/uL (2.0-8.3); Neutrophils Percent Auto 70.4 % (45-73); Platelet Count 145 X10*3/uL (160-400); Red Blood Count 5.12 X10*6/uL (4.60-5.80); Red Cell Distribution Width 13.4 % (11.0-16.0); White Blood Count 6.4 X10*3/uL (4.8-10.8)
[2024-01-02 17:04] LABS: Triglycerides 52 mg/dL (<150)
[2024-01-02] MEDS: 0.9 % Sodium Chloride 1,000 ML 999 ML IV ×2 (17:07→19:31)
[2024-01-02] MEDS: ondansetron HCL 4 MG/2 ML VIAL IVPUSH (17:09)
[2024-01-02 17:10] LABS: Alanine Aminotransferase 113 U/L (0-40); Albumin Level 4.4 g/dL (3.5-5.0); Alkaline Phosphatase 87 U/L (39-117); Anion Gap 22 (12-20); Aspartate Amino Transferase 91 U/L (5-37); Bilirubin Total 1.4 mg/dL (0.0-1.0); Blood Urea Nitrogen 15 mg/dL (9-16); Calcium 9.5 mg/dL (8.4-10.2); Carbon Dioxide 25 mmol/L (22-29); Chloride 91 mmol/L (96-108); Creatinine Clr Calc Pharmacy 78.1; Estimated Glomerular Filt Rate > 60; Glucose Random 122 mg/dL (60-115); Lipase 20 U/L (8-78); Potassium 4.2 mmol/L (3.3-5.1); Sodium 134 mmol/L (135-145); Total Protein 7.7 g/dL (6.5-8.0)
[2024-01-02] MEDS: LORazepam 2 MG/ML VIAL IVPUSH (17:11)
[2024-01-02] MEDS: Famotidine/PF 20 MG/2 ML VIAL IVPUSH (17:56)
[2024-01-02 18:15] LABS: Ethanol < 10 mg/dL
[2024-01-02] MEDS: LORazepam 1 MG TABLET 2 MG PO (19:33)
[2024-01-02 19:40] VITALS: BP 124/87; PULSE 109; RESP 18; TEMP 36.5; O2SAT 97
[2024-01-02] MEDS: Thiamine HCL 100 MG TABLET PO (20:33)
[2024-01-02] MEDS: Folic Acid 1 MG TABLET PO (20:33)
[2024-01-02 20:41] VITALS: BP 139/96; PULSE 101; RESP 18; TEMP 36.6; O2SAT 98
== END 2024-01-02 20:52 | disposition home or self-care (01) ==
PROVIDERS: Physician Assistant Medical; Emergency Provider Internal Medicine; PCP Nurse Practitioner Family
DX: F10.139 Alcohol abuse with withdrawal, unspecified (principal); Y90.0 Blood alcohol level of less than 20 mg/100 ml; K29.20 Alcoholic gastritis without bleeding; R11.2 Nausea with vomiting, unspecified; Z79.899 Other long term (current) drug therapy; Z51.81 Encounter for therapeutic drug level monitoring; Z03.818 Encounter for observation for suspected exposure to other biological agents ruled out
CPT/HCPCS: 0241U; 36415; 80053; 80307; 83690; 83735; 84478; 85025; 96361; 96374; 96375; 99284; J2060; J2405

== ENCOUNTER 2024-01-18 12:28 | Outpatient (REF) | payer MEDICARE, SELFPAY ==
[2024-01-18 17:02] LABS: Cholesterol 169 mg/dL (<200); HDL Cholesterol 47 mg/dL (>40); LDL Cholesterol Calculated 109 mg/dL (<100); Triglycerides 68 mg/dL (<150)
== END 2024-01-18 12:29 | disposition home or self-care (01) ==
LOC: HO.HMGCLDS 12:28
PROVIDERS: PCP Nurse Practitioner Family; Visit Provider Nurse Practitioner Family
DX: E78.5 Hyperlipidemia, unspecified (principal)
CPT/HCPCS: 36415; 80061

== ENCOUNTER 2024-01-23 07:45 | Outpatient (AMB) | payer MEDICARE, SELFPAY ==
--- NOTE | 2024-01-23 07:56 | A.OFFPC_ITS ---
Vital Signs 01/23/24 07:59 Height 5 ft 9 in Weight 166 lb 8 oz BMI 24.6 BP 124/80 Blood Pressure Location Lt brachial Position Sitting Pulse 72 Pulse Source Pulse Oximeter Pulse Oximetry (%) 98 Oxygen Delivery Method Room Air Intake Visit Reasons: PE - see comments Intake Note: Patient here for physical exam. colon: 2022 due 2032 Allergies amoxicillin [AMOXICILLIN] Allergy (Unknown, Verified 01/23/24 08:00) UNKNOWN, nausea and vomiting penicillin V Allergy (Unknown, Verified 01/23/24 08:00) rash Penicillins [PENICILLINS] Allergy (Unknown, Verified 01/23/24 08:00) UNKNOWN Erythromycin Allergy (Unknown, Uncoded 01/23/24 08:00) Rash Medication List - Last Reconciled 01/23/24 by RISSA Killian folic acid 1 mg PO DAILY thiamine HCl (vitamin B1) 100 mg PO DAILY Tobacco use date assessed: 01/23/24 Fall risk assessment: No Falls in past year Last assessed Fall Risk: 01/23/24 Dental Screening Dental Screen Date: 01/23/24 Did you have a dental visit in the last 12 months?: Yes Did you have a dental problem in the last 6 months where you did not have access to dental care?: No Was dental information given to patient?: Patient has dentist HPI PE - see comments HPI Details Pt is here for a PE. Will order labs. Colon screen is up to date. Due for PSA, will order. Denies dribbling with urination, weak stream, and frequent nocturia. Hx of alcohol abuse. Pt has not had alcohol since 12/31. Hx of pancytopenia, this has resolved. HTN: Pt reports that his blood pressure at home is in the 120s/70s. Pt sees a newspaper reporter yearly. [facility] Medical History Foot infection Pneumonia Hemorrhoids Alcohol abuse Acute hyponatremia GERD (gastroesophageal reflux disease) Asthma Surgical History Hx of tonsillectomy H/O colonoscopy Social History Household Members: None Housing: House Do you presently have visiting nurse or other home services: No Alcohol intake: current Alcohol intake frequency: former alcohol drinker Alcohol type: wine Comment: for impulsivity - camera applied - pt agreeable, aware:right to refuse Patient Tobacco Use Status: Never used Tobacco e-Cigarette/Vaping Use: Never Used Second Hand Smoke Exposure: No Advance Directives Date on File: 01/26/21 service: No Current occupational status: employed Current occupational exposures/hazards: No Cognitive needs: No Hearing needs: No Vision needs: No Questionnaire PHQ-9 Over the last 2 weeks, how often have you been bothered by any of the following problems? 1. Little interest or pleasure in doing things: not at all 2. Feeling down, depressed, or hopeless: not at all 3. Trouble falling or staying asleep, or sleeping too much: several days 4. Feeling tired or having little energy: not at all 5. Poor appetite or overeating: not at all 6. Feeling bad about yourself - or that you are a failure or have let yourself or your family down: not at all 7. Trouble concentrating on things, such as reading the newspaper or watching television: not at all 8. Moving or speaking so slowly that other people could have noticed. Or the opposite - being so fidgety or restless that you have been moving around a lot more than usual: not at all 9. Thoughts that you would be better off or of hurting yourself in some way: not at all Total score: 1 Depression Screening Interpretation: Negative Depression Screening Done: Yes 29617 - PHQ-9 Billing: Yes Source: Developed by Drs. Gene Bentley, Jayla Real, Duane Tyson and colleagues, with an educational henry from [employer]. Thrive Questionnaire Date Thrive assessed: 01/23/24 I am a: Patient What is your living situation today?: I have a steady place to live Within the past 12 months, did the food you bought not last and you didn't have the money to get more?: Never true Within the past 12 months, did you worry whether your food would run out before you got money to buy more?: Never true Do you have trouble paying for medicines?: No Do you have trouble getting transportation to medical appointments?: No Do you have trouble paying your heating and electricity bill?: No Do you have trouble taking care of your child, family member or friend?: No Do you have trouble with day-to-day activities such as bathing, preparing meals, shopping, managing finances, etc.?: No Are you currently unemployed and looking for a job?: No Are you interested in more education?: No Currently or been in a relationship where the following occur: I choose not to answer this question THRIVE Score: 0 AUDIT C Alcohol Use Questionnaire (AUDIT-C) 1. How often do you have a drink containing alcohol?: Never 3. How often do you have six or more drinks on one occasion?: Never Total Score: 0 Score Reviewed/Action Taken: No KATRIN-7 AMB Questionnaire KATRIN-7 Date KATRIN - 7 assessed: 01/23/24 Feeling nervous, anxious, or on edge: 0 = Not at all Not being able to stop or control worryin = Not at all Worrying too much about different things: 0 = Not at all Trouble relaxin = Not at all Being so restless that it is hard to sit still: 0 = Not at all Becoming easily annoyed or irritable: 0 = Not at all Feeling afraid as if something awful might happen: 0 = Not at all Total KATRIN-7 score (0-4 normal; 5-9 mild; 10-14 moderate; 15-21 severe): 0 Source: Developed by Drs. Gene Bentley, Jayla Real, Duane Tyson and colleagues, with an educational henry from [employer]. KATRIN-7 Assessment Billing KATRIN-7 Assessment Tool: KATRIN-7 Assessment 33684 Review of Systems Const Denies chills and Denies fever(s) Eyes Denies blurry vision ENT Denies vertigo, Denies dizziness and Denies sore throat Card Denies chest pain at rest, Denies chest pain with activity, Denies diaphoresis, Denies dyspnea and Denies dyspnea on exertion Resp Denies cough, Denies dyspnea, Denies dyspnea on exertion and Denies wheezing GI Denies abdominal pain, Denies melena, Denies hematochezia, Denies constipation, Denies diarrhea and Denies loose stools Denies hematuria Musc Denies numbness and Denies tingling Skin/Breast Denies lesions Neuro Denies vertigo, Denies dizziness, Denies numbness and Denies tingling Psych Denies anxiety, Denies depression, Denies homicidal ideation, Denies suicidal ideation and Denies other (substance abuse) Aller/Immun Denies wheezing Physical exam (Primary Care) Vital Signs: Last Vital Signs Pulse 72 01/23/24 07:59 BP 140/92 H 01/23/24 07:59 Pulse Ox 98 01/23/24 07:59 Oxygen Delivery Method Room Air 01/23/24 07:59 BMI result Body Mass Index 24.6 Tobacco/Smoking Status: Tobacco use Status Tobacco use date assessed 01/23/24 01/23/24 08:03 Patient Tobacco Use Status Never used Tobacco 01/23/24 07:58 e-Cigarette/Vaping Use Never Used 01/23/24 07:58 PHQ-9: PHQ-9 Score PHQ-9: Total score 1 01/23/24 08:09 Depression Screening Interpretation: Negative Thrive Assessment: Date of Thrive Assessment Date Thrive assessed 01/23/24 01/23/24 08:06 Currently or been in a relationship where the following occur: I choose not to answer this question Const General: cooperative Nutritional Appearance: well nourished Orientation/consciousness: patient oriented x3 HENMT Head: Yes normal to inspection, Yes normocephalic and Yes atraumatic Ears: TM's normal bilaterally Eyes General: appearance normal, both eyes and all related structures Alignment and Position: alignment normal and position normal Neck Neck: Yes normal visual inspection and Yes no lymphadenopathy Thyroid: Thyroid normal Resp Effort & Inspection: normal respiratory effort Auscultation: clear to auscultation bilaterally Cardio Rate: regular rate Rhythm: regular rhythm Heart sounds: S1 normal heart sound present, S2 normal heart sound present and no murmurs GI Palpation (GI): Soft to palpation and nontender Auscultation: normal bowel sounds Male General Exam: Yes normal external exam Penis: normal penis Scrotum: scrotum normal, testes descended bilaterally and no inguinal hernias Testes: no testicular mass Skin Other: crusting to right tip of nose. Large extensive varicose veins noted to medial LLE. Discoloration to BLE noted. Rashes: no rashes Neuro General: patient oriented x3, moves all extremities, no focal motor deficits and deep tendon reflexes 2+ bilaterally Romberg Test: Negative Psych Appearance: grossly normal Mental Status: mental status grossly normal Speech and movement: Normal speech and movement present Affect: normal affect Attitude: cooperative Thought process: Normal thought process present Thought content: Normal thought content present Insight: Good insight present (Psych) Judgement: Good judgement present (Psych) Assessment and Plan Assessment & Plan (1) Pancytopenia: Code(s): D61.818 - Other pancytopenia Plan: Resolved currently (2) HTN (hypertension): Code(s): I10 - Essential (primary) hypertension Plan: stable at home (120s/70s) (3) Encounter for routine adult physical exam with abnormal findings: Code(s): Z00.01 - Encounter for general adult medical examination with abnormal findings (4) Alcohol use disorder: Plan: quit since last month Plan The patient agreed to the use of a medical office representative for this encounter. Scribed for RISSA Mora by Ashley Vaca medical office representative, on 01/23/2024 at 08:05 EST. Orders: Orders Complete Blood Count Auto Diff Today Z00.00 - Encounter for general adult medical examination without abnormal findings Comprehensive [place]. Panel Fast Today Z00.00 - Encounter for general adult medical examination without abnormal findings TSH reflex Free T4 Today Z00.00 - Encounter for general adult medical examination without abnormal findings UA CC w/rflx Micro + Cult Today Z00.00 - Encounter for general adult medical examination without abnormal findings Lipid Panel Today Z00.00 - Encounter for general adult medical examination without abnormal findings Vitamin D 25-OH Total Today Z00.00 - Encounter for general adult medical examination without abnormal findings Prostate Specific Antigen Scr Today Z00.00 - Encounter for general adult medical examination without abnormal findings Coding Level of Care Code Est Pt Prev Care >65y(81609) Diagnoses Pancytopenia D61.818 HTN (hypertension) I10 Encounter for routine adult physical exam with abnormal findings Z00.01 Alcohol use disorder F10.90 Additional Codes KATRIN-7 Assessment Billing - KATRIN-7 Assessment Tool: KATRIN-7 Assessment 34231 ([id number])
[2024-01-23 07:59] VITALS: BP 124/80; PULSE 72; O2SAT 98; BMI 24.6
== END 2024-01-23 08:53 | disposition home or self-care (01) ==
PROVIDERS: Visit Provider Nurse Practitioner Family
DX: Z00.00 Encounter for general adult medical examination without abnormal findings (principal); D61.818 Other pancytopenia; I10 Essential (primary) hypertension; F10.90 Alcohol use, unspecified, uncomplicated
CPT/HCPCS: 99397

== ENCOUNTER 2024-08-14 06:43 | Outpatient (REF) | payer MEDICARE, SELFPAY ==
[2024-08-14 10:00] LABS: MANUAL DIFF FLAG NO
[2024-08-14 10:04] LABS: Basophils Absolute Auto 0.1 X10*3/uL (0.0-0.2); Basophils Percent Auto 1.1 % (0-2); Eosinophils Absolute Auto 0.1 X10*3/uL (0.0-0.4); Eosinophils Percent Auto 1.9 % (0-4); Imm Gran Abs Auto 0.01 X10*3/uL (0.00-0.03); Imm Gran Pct Auto 0.2 % (0.0-0.4); Lymphocytes Absolute Auto 3.5 X10*3/uL (1.2-4.9); Lymphocytes Percent Auto 56.9 % (20-40); Mean Corpuscular HGB Conc 34.1 g/dl (31.0-36.0); Mean Corpuscular Hemoglobin 30.9 pg (27.0-33.0); Mean Corpuscular Volume 90.7 fL (80.0-98.0); Monocytes Absolute Auto 0.5 X10*3/uL (0.1-1.2); Monocytes Percent Auto 8.1 % (2-11); Neutrophils Percent Auto 31.8 % (45-73); Platelet Count 219 X10*3/uL (160-400); Red Blood Count 4.85 X10*6/uL (4.60-5.80); Red Cell Distribution Width 13.6 % (11.0-16.0); White Blood Count 6.2 X10*3/uL (4.8-10.8)
[2024-08-14 10:14] LABS: Appearance Urine Clear; Color Urine Yellow; Glucose Urine UA Negative (Negative); Leukocyte Esterase Urine Negative (Negative); Nitrite Urine Negative (Negative); PH 6.5 (5.0-9.0); Specific Gravity - Urine <= 1.005 (1.005-1.025); Urine Blood Negative (Negative); Urine Ketones Negative (Negative); Urine Protein Negative (Neg-Trace)
[2024-08-14 10:38] LABS: Alanine Aminotransferase 22 U/L (0-40); Albumin Level 4.2 g/dL (3.5-5.0); Alkaline Phosphatase 60 U/L (39-117); Anion Gap 14 (12-20); Aspartate Amino Transferase 34 U/L (5-37); Blood Urea Nitrogen 15 mg/dL (9-16); Calcium 9.4 mg/dL (8.4-10.2); Carbon Dioxide 23 mmol/L (22-29); Chloride 98 mmol/L (96-108); Cholesterol 189 mg/dL (<200); Estimated Glomerular Filt Rate > 60; Glucose Fasting 97 mg/dL (60-99); HDL Cholesterol 41 mg/dL (>40); LDL Cholesterol Calculated 127 mg/dL (<100); Potassium 3.8 mmol/L (3.3-5.1); Sodium 131 mmol/L (135-145); TSH reflex Free T4 2.45 uIU/mL (0.32-4.0); Triglycerides 107 mg/dL (<150)
== END 2024-08-14 06:44 | disposition home or self-care (01) ==
LOC: HO.HMGCLDS 06:43
PROVIDERS: PCP Nurse Practitioner Family; Visit Provider Nurse Practitioner Family
DX: Z00.00 Encounter for general adult medical examination without abnormal findings (principal); Z12.5 Encounter for screening for malignant neoplasm of prostate
CPT/HCPCS: 36415; 80053; 80061; 81003; 82306; 84153; 84443; 85025

== ENCOUNTER 2024-08-26 07:36 | Outpatient (AMB) | payer MEDICARE, SELFPAY ==
--- NOTE | 2024-08-26 07:23 | MHC.OFFVIS ---
Intake Visit Reasons: 6 month follow up Allergies amoxicillin [AMOXICILLIN] Allergy (Unknown, Verified 01/23/24 08:00) UNKNOWN, nausea and vomiting penicillin V Allergy (Unknown, Verified 01/23/24 08:00) rash Penicillins [PENICILLINS] Allergy (Unknown, Verified 01/23/24 08:00) UNKNOWN Erythromycin Allergy (Unknown, Uncoded 01/23/24 08:00) Rash HPI HPI 6 month follow up: Details: History of Present Illness The patient is a 68-year-old male presenting with hyponatremia. He recently had blood tests that revealed low sodium levels, measured at 131 mEq/L. The patient denies experiencing symptoms typically associated with hyponatremia such as dizziness, chest pain, shortness of breath, abnormal headaches, or blurred vision. He has made significant dietary changes, eliminating red meat and reducing dairy intake, focusing more on plant-based foods. Follow-up labs, including serum and urine osmolality, are planned to further evaluate the electrolyte imbalance. Review of Systems - Neurological: Denies dizziness, headaches, blurred vision - Cardiovascular: Denies chest pain - Respiratory: Denies shortness of breath Physical Exam General: No apparent distress, well nourished Head: Normocephalic Eyes: non-icteric, pupils appear grossly symmetric Mouth: moist mucous membranes, airway patent Neck: Trachea midline Lungs: no respiratory distress, speaks in full sentences Neurologic: alert and cooperative, no dysarthria, face appears symmetric Psychiatric: affect normal, thought pattern linear Skin: no facial diaphoresis, no gross jaundice, no visible rash on exposed skin Note: This physical exam was conducted in conjunction with the patient via our Telehealth platform. Plan Hyponatremia: I plan to repeat the patient's serum sodium level. Additional testing will include serum osmolality and urine osmolality to aid in understanding the etiology of his hyponatremia. The patient will continue his new dietary regimen. I will monitor his laboratory values, including cholesterol, liver function tests, and kidney function tests, in approximately six months to evaluate any changes potentially related to dietary modification. Patient was informed and verbally consented to the use of an ambient scribe for clinic note documentation during this visit. Discussion Notes I discussed with the patient the presence of hyponatremia noted on recent laboratory testing. I explained the importance of repeating the serum sodium level and performing osmolality tests for further assessment. I advised that his dietary changes might contribute to the electrolyte abnormality, though further investigation is warranted. The patient was informed about the plan to monitor his lab values, including cholesterol, liver, and kidney functions in the near future, acknowledging his current dietary choices. He consented to this plan and understood the reasons and implications of these tests and ongoing monitoring. I noted that he is currently feeling well and has not experienced any acute symptoms requiring urgent intervention. Patient Instructions - Return for repeat laboratory tests including serum sodium, serum osmolality, and urine osmolality. - Continue with the current dietary modifications and monitor any changes in symptoms. - Abstain from alcohol as per recent changes. - Follow up in approximately six months for reevaluation of laboratory results. - Seek medical attention if he experiences dizziness, confusion, severe headaches, or other concerning symptoms. [facility], [facility] Medical History Foot infection Pneumonia Hemorrhoids Alcohol abuse Acute hyponatremia GERD (gastroesophageal reflux disease) Asthma Surgical History Hx of tonsillectomy H/O colonoscopy Social History Household Members: None Housing: House Do you presently have visiting nurse or other home services: No Alcohol intake: current Alcohol intake frequency: former alcohol drinker Alcohol type: wine Comment: for impulsivity - camera applied - pt agreeable, aware:right to refuse Patient Tobacco Use Status: Never used Tobacco e-Cigarette/Vaping Use: Never Used Second Hand Smoke Exposure: No Advance Directives Date on File: 01/26/21 service: No Current occupational status: employed Current occupational exposures/hazards: No Cognitive needs: No Hearing needs: No Vision needs: No Telehealth Telehealth Telehealth Platform: [facility] Location of provider rendering services: practice address Location of patient: address on file Patient Identification confirmed using: Name, : Yes Telehealth method: video Patient verbally consented to treatment: Yes Patient verbally consented to billing insurance company: Yes Patient informed of any privacy concerns related to visit: Yes Minutes spent on Phone/Video with Pt.: 10 Assessment & Plan Assessment & Plan (1) Hyponatremia: Code(s): E87.1 - Hypo-osmolality and hyponatremia Category: Medical Plan . Orders: Orders Osmolality, Serum Today E87.1 - Hypo-osmolality and hyponatremia Comprehensive Met. Panel Today E87.1 - Hypo-osmolality and hyponatremia Osmolality Urine Today E87.1 - Hypo-osmolality and hyponatremia Coding Level of Care Code Tele Est Pt Level 3 (29444) Diagnoses Hyponatremia E87.1
--- OUTSIDE RECORDS SUMMARY | 2024-08-26 07:37 | XMS_ITS | Patient Health Record ---
Author Organization [facility] Address [address] [place] [address] Care Team Providers Care Computer Recycling Worker Name Role Phone MARCUS HARKINS Primary Care Provider Soy Moura Jr Unavailable ALLERGIES Allergen (clinical drug ingredient) Drug/Non Drug Allergy documented on EMR Reaction Allergy Type Onset Date Status Penicillin Unknown Drug Allergy Active amoxicillin Amoxicillin Unknown Drug Allergy Act glenn REASON FOR REFERRAL No Information MEDICATIONS Medication SIG (Take, Route, Frequency, Duration) Notes Start Date End Date Status MiraLax (colon prep) 17 GM/SCOOP mixed with Gatorade or Crystal Light Orally begin at 5:00 p.m. the day before the procedure for 1 day 01/22/2023 Active IMMUNIZATIONS Vaccine Route Administration Date Status Comme nts Influenza Unknown 01/22/2023 Refused SOCIAL HISTORY Sex Assigned At : Social History Observation Description Sex Assigned At Unknown PROBLEMS Problem Type ICD Code Onset Dates Problem Status W/U Status Risk SNOMED Code Notes Problem Colon cancer screening (Z12.11) Active confirmed 862212910 Problem Gastro-esophagea l reflux disease without esophagitis (K21.9) Active confirmed 832381718 Problem Personal history of colonic polyps (Z86.010) Active confirmed History of polyp of colon (situation) (594891225) Problem Abdominal pain, epigastric (R10.13) Active confirmed 15337232 PLAN OF TREATMENT Future Test Test Name Order Date COLONOSCOPY 12/30/2015 COLONOSCOPY 01/22/2023 Insurance Providers Payer Name Payer Address Payer Phone Subscriber Number Group Number Insured Name Patient Relationship to Insured Coverage Start Date Coverage End Date AARP Medicare Advantage Plan [address] [address] [place] [address] [phone] [id number] DELIA VALDIVIA Self - patient is the insured MEDICAL (GENERAL) HISTORY Medical History History ICD Code colonoscopy 04/05/16, normal, five-year followup due to history of tubular adenomas. Gastroesophageal reflux disease Hemorrhoids pneumonia 2014 Hyponatremia Surgical History Surgery Date(Month/Year) Tonsillectomy foot left /infection age 19
--- OUTSIDE RECORDS SUMMARY | 2024-08-26 07:37 | XMS_ITS ---
Author Organization [facility] Address [address] [place] [address] Care Team Providers Care Pharmacy Resource Tech Name Role Phone MARCUS HARKINS Primary Care Provider Soy Moura Jr Unavailable REASON FOR VISIT screening PROBLEMS Problem Type ICD Code Onset Dates Problem Status W/U Status Risk SNOMED Code Notes Problem Personal history of colonic polyps (Z86.010) Active confirmed History of polyp of colon (situation) (005390898) Encounters Encounter Location Date Provider Diagnosis [facility] Out[place] [address] [place], [place] [id number] 04/17/2023 Soy Ordaz Jr Colon cancer screening Z12.11 and Personal history of colonic polyps Z86.010 ASSESSMENTS Encounter Date Diagnosis Assessment Notes Treatment Notes Treatment Clinical Notes 04/17/2023 Colon cancer screening (ICD-10 - Z12.11) 04/17/2023 Personal history of colonic polyps (ICD-10 - Z86.010) PLAN OF TREATMENT No Information
--- OUTSIDE RECORDS SUMMARY | 2024-08-26 07:37 | XMS_ITS ---
Author Organization [facility] Address [address] [place] [address] Care Team Providers Care Regulatory Compliance Director Name Role Phone MARCUS HARKINS Primary Care Provider Soy Moura Jr Unavailable REASON FOR VISIT fyi veronica Encounters Encounter Location Date Provider Diagnosis [facility] [address] [place] [address] 04/16/2023 Soy Ordaz Jr PLAN OF TREATMENT No Information
--- OUTSIDE RECORDS SUMMARY | 2024-08-26 07:37 | XMS_ITS ---
Author Organization [facility] Address [address] [place] [address] Care Team Providers Care Train Inspector Name Role Phone MARCUS HARKINS Primary Care Provider Karina e Soy Ordaz Jr REASON FOR VISIT Has pending pa been approved? Encounters Encounter Location Date Provider Diagnosis [facility] [address] [place] [address] 04/11/2023 Soy Ordaz Jr PLAN OF TREATMENT No Information
== END 2024-08-26 07:48 | disposition home or self-care (01) ==
LOC: HO.HMCC 07:36
PROVIDERS: PCP Nurse Practitioner Family; Visit Provider Nurse Practitioner Family
DX: E87.1 Hypo-osmolality and hyponatremia (principal)

== ENCOUNTER → 2024-08-26 07:36 | Outpatient (BNVA) | payer MEDICARE, SELFPAY | PROVIDERS: PCP Nurse Practitioner Family; Visit Provider Nurse Practitioner Family | DX: E87.1 Hypo-osmolality and hyponatremia (principal) ==

== ENCOUNTER 2024-10-15 14:13 | Outpatient (AMB) | payer MEDICARE, SELFPAY ==
--- NOTE | 2024-10-15 14:18 | MHC.OFFWIV ---
Intake Vital Signs 10/15/24 14:19 Weight 172 lb BP 140/90 H Blood Pressure Location Lt brachial Position Sitting Pulse 120 H Pulse Source Pulse Oximeter Temp 98.0 F Temp Source Oral Pulse Oximetry (%) 98 Oxygen Delivery Method Room Air Intake Visit Reasons: EP Covid + last sunday, bad cough Intake Note: Patient here because he tested positive for covid on a home test last sunday and having an issue with bad cough, SOB,chest tightness. Patient Tobacco Use Status: Never used Tobacco Allergies amoxicillin [AMOXICILLIN] Allergy (Unknown, Verified 10/15/24 14:20) UNKNOWN, nausea and vomiting penicillin V Allergy (Unknown, Verified 10/15/24 14:20) rash Penicillins [PENICILLINS] Allergy (Unknown, Verified 10/15/24 14:20) UNKNOWN Erythromycin Allergy (Unknown, Uncoded 10/15/24 14:20) Rash Do you need a note to return to daycare/school/sports/work: No HPI HPI Comments History of Present Illness Details This is a 69-year-old male with no stated past medical history presenting for evaluation of a cough, chest tightness and shortness to breath that has been evolving since he tested positive for COVID-19 on Sunday at home. Patient states that he started to have a mild cough and congestion on and tested for COVID on Sunday. Patient states that he has had a headache, a cough that is worsening and chest tightness only with cough throughout the weekend. Patient is taking Mucinex for his cough. [facility] Medical History Foot infection Pneumonia Hemorrhoids Alcohol abuse Acute hyponatremia GERD (gastroesophageal reflux disease) Asthma Surgical History Hx of tonsillectomy H/O colonoscopy Social History Household Members: None Housing: House Do you presently have visiting nurse or other home services: No Alcohol intake: current Alcohol intake frequency: former alcohol drinker Alcohol type: wine Comment: for impulsivity - camera applied - pt agreeable, aware:right to refuse Patient Tobacco Use Status: Never used Tobacco e-Cigarette/Vaping Use: Never Used Second Hand Smoke Exposure: No Advance Directives Date on File: 01/26/21 service: No Current occupational status: employed Current occupational exposures/hazards: No Cognitive needs: No Hearing needs: No Vision needs: No Review of Systems Const All systems reviewed & are unremarkable except as noted in HPI and below Denies chills, Reports fatigue and Denies fever(s) Eyes Reports as per HPI ENT Reports no additional complaints and Reports as per HPI Card Reports as per HPI, Reports no additional complaints, Reports chest pain ( tightness intermittent) and Reports dyspnea Resp Reports cough, Denies pain with cough and Reports dyspnea GI Reports as per HPI and Reports no additional complaints Reports no additional complaints Musc Reports no additional complaints Skin/Breast Reports system reviewed and no additional complaints, except as documented Neuro Reports no additional complaints Endo Reports no additional complaints and Reports fatigue Demond/Lymph Reports no additional complaints Aller/Immun Reports no additional complaints Physical Exam Vital Signs: Patient is tachycardic at 120bpm; recheck 108bpm, no tachypnea. Const General: cooperative, healthy appearing, comfortable, no acute distress, well developed, alert, awake and Physically active; No acute distress Nutritional Appearance: average body habitus Orientation/consciousness: patient oriented x3 Limitations: no limitations Resp Effort & Inspection: normal respiratory effort, able to speak in complete sentences, abnormal respiratory pattern, no audible wheezes, no cough and no respiratory distress Auscultation: diminished lung sounds on the right in the upper lung mcintyre Cardio Rate: tachycardic Rhythm: regular rhythm Skin General skin exam: no rashes or lesions noted Neuro General: patient oriented x3 Extrem Other: no calf tenderness bilaterally Psych Appearance: grossly normal Mental Status: mental status grossly normal Insight: Good insight present (Psych) Judgement: Good judgement present (Psych) Results Reviewed Results Reviewed: EKG normal sinus rhythm 88 beats per minute, no acute findings noted on chest x-ray. Assessment & Plan Assessment & Plan (1) Cough: Code(s): R05.9 - Cough, unspecified Qualifiers: Cough type: acute Qualified Code(s): R05.1 - Acute cough Plan: Mucinex, tea with honey, increase clear fluids daily. (2) Tachycardia: Code(s): R00.0 - Tachycardia, unspecified Plan: EKG reveals normal sinus rhythm at a rate of 88 beats per minute. Clinical concern for PE discussed with patient however he is not hypoxic or tachycardic at the time of the discharge. Patient is instructed to go to the ED for any persistent tachycardia, chest pain, hemoptysis or worsening dyspnea. Patient is in agreement with this plan of care. Orders: Orders XR chest 2V Today R05.9 - Cough, unspecified AMB EKG-In Office Today R00.0 - Tachycardia, unspecified Coding Level of Care Code Est Pt Level 3 (43180) Diagnoses Acute cough R05.1 Cough type: acute Tachycardia R00.0
[2024-10-15 14:19] VITALS: BP 140/90; PULSE 120; TEMP 36.7; O2SAT 98
--- OUTSIDE RECORDS SUMMARY | 2024-10-15 16:36 | XMS_ITS | Clinical Summary ---
Author Organization [facility] Address [address] [address] Care Team Providers Care Icer Machine Operator Name Role Phone Oral Yanes NP Primary Care Provider [phone] Allergies Active Allergy Reactions Criticality Noted Date Comments Amoxicillin 02/03/2021 Medications No known medications Active Problems Problem Noted Date Diagnosed Date Unilateral leg edema 05/12/2021 Hypo-osmolality and hyponatremia 02/03/2021 Resolved Problems Problem Noted Date Diagnosed Date Resolved Date Asthma 02/03/2021 05/11/2021 Gastroesophageal reflux disease 02/03/2021 05/11/2021 Swelling of lower leg 02/20/20202020 Family History Medical History Relation Comments Cancer Father Dementia Father Hypertension Father Relation Status Comments Father Social History Tobacco Use Types Packs/Day Years Used Date Smoking Tobacco: Never Smokeless Tobacco: Never Alcohol Use Standard Drinks/Week Comments Not Currently 0 (1 standard drink = 0.6 oz pur e alcohol) Sex and Gender Information Value Date Recorded Sex Assigned at Not on file Legal Sex Male 12:06 PM EDT Gender Identity Not on file Sexual Orientation Not on file Last Filed Vital Signs Vital Sign Reading Time Taken Comments Blood Pressure 144/96 05/12/2021 2:32 PM EDT Pulse 106 05/12/2021 2:32 PM EDT Temperature - - Respiratory Rate - - Oxygen Saturation 99% 05/12/2021 2:32 PM EDT Inhaled Oxygen Concentration - - Weight 92.1 kg (203 lb 0.7 oz) 05/12/2021 2:32 P M EDT Height - - Body Mass Index - - Plan of Treatment Health Maintenance Due Date Last Done Comments Colorectal Cancer Screening: Annual FOBT 2002 Colorectal Cancer Screening: Colonoscopy 2002 Colorectal Cancer Screening: Sigmoidoscopy 2002 Pneumococcal Vaccine: 65+ Ye ars (1 of 1 - PCV) 2018 Influenza Vaccine (#1) 2024 Hepatitis B Vaccine Aged Out No longe r eligible based on patient's age to complete this topic Insurance MEDICARE MEDICARE Care Teams Icer Machine Operator Relationship Specialty Start Date End Date Oral Yanes NP [address] [place] [address] PCP - General Nurse Practitioner 02/03/21
--- OUTSIDE RECORDS SUMMARY | 2024-10-15 16:36 | XMS_ITS | Continuity of Care Document ---
Author Organization [facility] Address [address] [place] [address]- Care Team Providers Care Freight Receiver Name Role Phone Not on Staff, PCP Primary Care Physician Unavail able Encounter [facility] Date(s): 09/03/24 - 10/09/24 [facility]/[address] [address]- Attending Physician: Yamilet Trinidad NP Admitting Physician: Yamilet Trinidad NP Encounter Type: Pre-OutPatient One Time Patient Care team information Care Team Personnel Name: Not on Staff, PCP Position: [facility] Physician (General Medicine) Member Role: PCP Insurance Providers Guarantor name: DELIA VALDIVIA Health Plan Information #: [address] [facility] Member Number: [id number] Policy Number: NA Group Number: NA Health Plan Information #: 1 Payer: PATTY - Member Number: NA Policy Number: NA Group Number: NA
--- OUTSIDE RECORDS SUMMARY | 2024-10-15 16:36 | XMS_ITS | Continuity of Care Document ---
Author Organization [facility] Address [address] [place] [address]- Care Team Providers Care Public Health Dietitian Name Role Phone Not on Staff, PCP Primary Care Physician Unavail able Encounter [facility] [place] Date(s): 09/09/24 - 10/09/24 [facility] [address] [address]- Attending Physician: Bienvenido Meadows Admitting Physician: Bienvenido Meadows Referring Physician: Bienvenido Meadows Encounter Type: Triage Patient Care team information Care Team Personnel Name: Not on Staff, PCP Position: [facility] Physician (General Medicine) Member Role: PCP Insurance Providers Guarantor name: DELIA VALDIVIA Health Plan Information #: 1 Payer: PATTY - Member Number: NA Policy Number: NA Group Number: NA
== END 2024-10-15 15:33 | disposition home or self-care (01) ==
PROVIDERS: PCP Nurse Practitioner Family; Visit Provider Physician Assistant
DX: R05.1 Acute cough (principal); R00.0 Tachycardia, unspecified

== ENCOUNTER 2024-10-15 14:13 | Outpatient (REF) | payer MEDICARE, SELFPAY ==
--- NOTE | ~2024-10-15 | XR_ITS ---
EXAMINATION: XR CHEST CLINICAL INFORMATION: R05.9 - Cough, unspecified COMPARISON: None available. TECHNIQUE: 2 views of the chest were obtained. FINDINGS: The lungs are hyperinflated but clear acute process. The heart size and pulmonary vascularity is normal. There is no pleural effusion or pneumothorax. There is mild right lateral mid and lower dorsal spine spondylosis. XR/XR chest 2V IMPRESSION: Unremarkable chest exam. Electronically signed by: Navi Sutherland MD 10/15/2024 03:13 PM EST
--- OUTSIDE RECORDS SUMMARY | 2024-10-15 16:59 | XMS_ITS | Clinical Summary ---
Author Organization [facility] Address [address] [address] Care Team Providers Care Meat And Seafood Manager Name Role Phone Oral Yanes NP Primary Care Provider [phone] Allergies Active Allergy Reactions Criticality Noted Date [...] this topic Insurance MEDICARE MEDICARE Care Teams Meat And Seafood Manager Relationship Specialty Start Date End Date Oral Yanes NP [address] [place] [address] PCP - General Nurse Practitioner 02/03/21
== END 2024-10-15 14:14 | disposition home or self-care (01) ==
LOC: HO.HMGCX 14:13
PROVIDERS: PCP Nurse Practitioner Family; Visit Provider Physician Assistant
DX: R05.1 Acute cough (principal); R00.0 Tachycardia, unspecified
CPT/HCPCS: 71046; 99212

== ENCOUNTER → 2024-10-15 14:40 | Outpatient (BNV) | payer MEDICARE, SELFPAY | PROVIDERS: PCP Nurse Practitioner Family; Visit Provider Radiology Diagnostic Radiology | DX: R05.9 Cough, unspecified (principal) | CPT/HCPCS: 71046 ==

== ENCOUNTER 2024-10-17 14:54 | Outpatient (REF) | payer MEDICARE, SELFPAY ==
[2024-10-17 16:13] LABS: MANUAL DIFF FLAG NO
--- OUTSIDE RECORDS SUMMARY | 2024-10-17 16:17 | XMS_ITS | Patient Health Record ---
Author Organization [facility] Address [address] [place] [address] Care Team Providers Care Automatic Serging Machine Operator Name Role Phone MARCUS HARKINS Primary Care [...] Problem Colon cancer screening (Z12.11) Active confirmed 661056952 Problem Gastro-esophagea l reflux disease without esophagitis (K21.9) Active confirmed 138173364 Problem Personal history of colonic polyps (Z86.010) Active confirmed History of polyp of colon (situation) (495782443) Problem Abdominal pain, epigastric (R10.13) Active confirmed 41836479 PLAN OF TREATMENT Future Test Test Name Order Date COLONOSCOPY 12/30/2015 COLONOSCOPY 01/22/2023 Insurance Providers Payer Name Payer Address Payer Phone Subscriber Number Group Number Insured Name Patient Relationship to Insured Coverage Start Date Coverage End Date AARP Medicare Advantage Plan [address] [address] [place] [address] [phone] [id number] DELIA VALDIVIA Self - patient is the insured MEDICAL (GENERAL) HISTORY Medical History History ICD Code colonoscopy 04/05/16, normal, five-year followup due to history of tubular adenomas. Gastroesophageal reflux disease Hemorrhoids pneumonia 2014 Hyponatremia Surgical History Surgery Date(Month/Year) Tonsillectomy foot left /infection age 19
--- OUTSIDE RECORDS SUMMARY | 2024-10-17 16:17 | XMS_ITS | Clinical Summary ---
Author Organization [facility] Address [address] [address] Care Team Providers Care Plumbing Designer Name Role Phone Oral Yanes NP Primary Care Provider [phone] Allergies Active Allergy Reactions Criticality Noted Date [...] this topic Insurance MEDICARE MEDICARE Care Teams Plumbing Designer Relationship Specialty Start Date End Date Oral Yanes NP 1963 [place] [address] PCP - General Nurse Practitioner 02/03/21
--- OUTSIDE RECORDS SUMMARY | 2024-10-17 16:17 | XMS_ITS ---
Author Organization [facility] Address [address] [place] [address] Care Team Providers Care Brine Well Operator Name Role Phone MARCUS HARKINS Primary Care Provider Soy Moura Jr Unavailable REASON FOR VISIT screening PROBLEMS Problem Type ICD Code Onset Dates Problem Status W/U Status Risk SNOMED Code Notes Problem Personal history of colonic polyps (Z86.010) Active confirmed History of polyp of colon (situation) (253658008) Encounters Encounter Location Date Provider Diagnosis [facility] [place] Outpatient [address] [place], [place] [id number] 04/17/2023 Soy Ordaz Jr Colon cancer screening Z12.11 and Personal history of colonic polyps Z86.010 ASSESSMENTS Encounter Date Diagnosis Assessment Notes Treatment Notes Treatment Clinical Notes 04/17/2023 Colon cancer screening (ICD-10 - Z12.11) 04/17/2023 Personal history of colonic polyps (ICD-10 - Z86.010) PLAN OF TREATMENT No Information
--- OUTSIDE RECORDS SUMMARY | 2024-10-17 16:17 | XMS_ITS ---
Author Organization [facility] Address [address] [place] [address] Care Team Providers Care Termite Control Service Representative Name Role Phone MARCUS HARKINS Primary Care Provider Soy Moura Jr Unavailable [phone] REASON FOR VISIT fyi veronica Encounters Encounter Location Date Provider Diagnosis [facility] [address] [place] [address] 04/16/2023 Soy Ordaz Jr PLAN OF TREATMENT No Information
[2024-10-17 16:19] LABS: Basophils Absolute Auto 0.1 X10*3/uL (0.0-0.2); Basophils Percent Auto 0.5 % (0-2); Eosinophils Absolute Auto 0.1 X10*3/uL (0.0-0.4); Eosinophils Percent Auto 1.2 % (0-4); Hematocrit 43.4 % (42.0-52.0); Hemoglobin 14.6 g/dl (14.0-18.0); Imm Gran Abs Auto 0.05 X10*3/uL (0.00-0.03); Imm Gran Pct Auto 0.5 % (0.0-0.4); Lymphocytes Absolute Auto 3.3 X10*3/uL (1.2-4.9); Lymphocytes Percent Auto 35.9 % (20-40); Mean Corpuscular HGB Conc 33.6 g/dl (31.0-36.0); Mean Corpuscular Hemoglobin 31.1 pg (27.0-33.0); Mean Corpuscular Volume 92.5 fL (80.0-98.0); Monocytes Absolute Auto 0.5 X10*3/uL (0.1-1.2); Monocytes Percent Auto 5.5 % (2-11); Neutrophils Absolute Auto 5.2 x10*3/uL (2.0-8.3); Neutrophils Percent Auto 56.4 % (45-73); Platelet Count 240 X10*3/uL (160-400); Red Blood Count 4.69 X10*6/uL (4.60-5.80); Red Cell Distribution Width 13.2 % (11.0-16.0); White Blood Count 9.3 X10*3/uL (4.8-10.8)
[2024-10-17 16:30] LABS: Alanine Aminotransferase 14 U/L (0-40); Albumin Level 4.1 g/dL (3.5-5.0); Alkaline Phosphatase 72 U/L (39-117); Anion Gap 12 (12-20); Aspartate Amino Transferase 16 U/L (5-37); Bilirubin Total 0.4 mg/dL (0.0-1.0); Blood Urea Nitrogen 14 mg/dL (9-16); Calcium 9.2 mg/dL (8.4-10.2); Carbon Dioxide 29 mmol/L (22-29); Chloride 99 mmol/L (96-108); Estimated Glomerular Filt Rate > 60; Glucose Random 133 mg/dL (60-115); Potassium 4.1 mmol/L (3.3-5.1); Sodium 136 mmol/L (135-145); Total Protein 7.6 g/dL (6.5-8.0)
[2024-10-17 16:38] LABS: D Dimer High Sensitivity 186 NG/ML
== END 2024-10-17 14:55 | disposition home or self-care (01) ==
LOC: HO.HMGCLDS 14:54
PROVIDERS: PCP Nurse Practitioner Family; Visit Provider Nurse Practitioner Family
DX: R00.0 Tachycardia, unspecified (principal)
CPT/HCPCS: 36415; 80053; 85025; 85379

== ENCOUNTER 2025-01-17 12:21 | Inpatient (IN) | payer MEDICARE, SELFPAY ==
--- NOTE | ~2025-01-17 | XR_ITS ---
EXAMINATION: XR CHEST 1 VIEW HISTORY: Tachycardia, F/U infiltrates COMPARISON: Comparison is made with the prior examination dated 01/18/2025. FINDINGS: A single AP portable view of the chest performed at 8:54 AM is submitted. There is linear subsegmental atelectasis at the right lung base. The previously seen opacity at the left lung base has resolved. There is no pleural effusion, pneumothorax, or pulmonary vascular congestion. The heart is normal in size. There is degenerative disc disease of the spine. XR/XR chest 1V IMPRESSION: Subsegmental atelectasis at the right lung base. The previously seen left basilar opacity has resolved. Electronically signed by: Gene Vazquez MD 01/22/2025 09:12 AM EDT
--- NOTE | ~2025-01-17 | US_ITS ---
EXAMINATION: US TRIPLEX LOWER EXTREMITY, BILATERAL CLINICAL INFORMATION: Swelling COMPARISON: None available. TECHNIQUE: Color-flow triplex imaging with spectral analysis and compression Doppler were performed on the bilateral lower extremities. FINDINGS: Respiratory variation, normal compression and augmented flow are noted throughout the bilateral lower extremities. The visualized common femoral vein, superficial femoral vein, profunda femoral vein, popliteal vein and midcalf peroneal and posterior tibial venous segments show no evidence of deep venous thrombosis bilaterally. There is no Mason's cyst. US/US venous duplex LE BI IMPRESSION: No evidence of deep venous thrombosis involving the bilateral lower extremities. Electronically signed by: Navi Sutherland MD 01/19/2025 08:37 AM EDT
--- NOTE | ~2025-01-17 | CT_ITS ---
CLINICAL HISTORY: n v CT abdomen and pelvis without IV contrast. COMPARISON: None FINDINGS: Partially visualized lung bases are unremarkable. Marked hepatic steatosis. Liver is mildly enlarged with right lobe measuring 19.1 cm. Normal gallbladder. Noncontrast appearance of the spleen, pancreas and adrenal glands are unremarkable. Right renal cystic lesion of the superior pole measuring 2.2 cm. No hydronephrosis. Normal appendix. Mild colonic stool burden most pronounced within the ascending and transverse colon large amount of stool present within the rectal vault. [id number] amount of stool present within the ascending and transverse colon. No mesenteric or retroperitoneal lymphadenopathy. Mild aortoiliac atherosclerotic vascular calcifications. Urinary bladder is markedly distended. No inguinal lymphadenopathy. Mild lower lumbar spondylosis. No acute fracture or suspicious bone lesion. Mild leftward curvature of the mid lumbar spine. IMPRESSION: 1. Distended urinary bladder. A component of outlet obstruction may be present. 2. Large amount of stool within the distal sigmoid colon/rectum. A component of fecal impaction may be present. 3. Marked hepatic steatosis with mild hepatomegaly. This can be associated with hepatitis. This document has been electronically signed by: Thee Roberto MD on 01/17/2025 20:21:01
--- NOTE | ~2025-01-17 | XR_ITS ---
CLINICAL HISTORY: siadh 1 view chest x-ray. Comparison: CR/SR - XR CHEST 2V - 10/15/24 14:49 EST Findings: Normal lung volumes. Worsening interstitial and bronchial wall thickening. Basilar atelectasis or infiltrate on the left. No pneumothorax or pleural effusion. Heart size normal. No passive venous congestion. No midline shift or tracheal deviation. No acute fracture. Impression: 1. Worsening interstitial and bronchial wall thickening. Basilar atelectasis or infiltrate on the left. This document has been electronically signed by: Madhu Edwards MD on 01/18/2025 10:34:53
[2025-01-17 12:26] VITALS: BP 131/77; PULSE 95; RESP 18; TEMP 36.6; O2SAT 97; BMI 26.8
--- NOTE | 2025-01-17 12:37 | ECG_ITS ---
Test Reason : WEAKNESS Blood Pressure : */* mmHG Vent. Rate : 91 BPM Atrial Rate : 91 BPM P-R Int : 176 ms QRS Dur : 106 ms QT Int : 368 ms P-R-T Axes : 6 -11 -27 degrees QTcB Int : 452 ms Artifact in tracing Normal sinus rhythm Inferior infarct , age undetermined Abnormal ECG When compared with ECG of 25-Jan-2021 17:59, Due to artifact, cannot compare Referred By: Generic ED Physician Electronically Signed By: JORGE MCKINNEY
--- NOTE | 2025-01-17 12:41 | PC.NURSE ---
patient brought in by ems from home, states he has been having vomiting and increased weakness x5 days. patient lower legs bilat 3+ pitting edema. patient MM dry. patient appears to be altered, keeps asking to be saved , alert and oriented x4 but affect is off. patient pupils equal and reactive bilat. patient normal sinus on the monitor, rate 90s. #20 LFA by EMS. patient unkempt, changed over into hospital attire, noted to have pressure injury on coccyx.
--- NOTE | 2025-01-17 13:19 | ED.GENADULT ---
HPI - General Adult General Chief complaint: General Medical Stated complaint: WEAKNESS Time Seen by Provider: 01/17/25 13:19 Source: patient, EMS, RN notes reviewed, old records reviewed and other (neighbor/friend) Mode of arrival: EMS Limitations: no limitations History of Present Illness ED Provider: Higinio [facility] narrative: Patient is a 69-year-old male with history of alcohol use disorder, hypertension, anemia, dyslipidemia, PVD presenting to the emergency department requesting assistance with detox from alcohol. Admits to drinking a 3 L box of wine every other day. States last drink was sometime yesterday evening. Reports lower extremity edema over the past few weeks. Vomiting yellow emesis x 5 days, denies diarrhea. Denies chest pain, palpitations, dyspnea. Denies drug use. Denies history of withdrawal seizures. States he is seeking assistance with detox. MD complaint: weakness and vomiting Related Data Previous Rx's ?Medication ?Instructions ?Recorded folic acid 1 mg tablet 1 mg PO DAILY #90 tabs 01/02/24 thiamine HCl (vitamin B1) 100 mg 100 mg PO DAILY #90 tabs 01/02/24 tablet fluticasone propionate 50 2 spray intranasal DAILY #16 grams 01/24/24 mcg/actuation nasal spray,suspension (Flonase Allergy Relief) Allergies Allergy/AdvReac Type Severity Reaction Status Date / Time amoxicillin [AMOXICILLIN] Allergy Unknown UNKNOWN, Verified 01/17/25 12:29 nausea and vomiting penicillin V Allergy Unknown rash Verified 01/17/25 12:29 Penicillins [PENICILLINS] Allergy Unknown UNKNOWN Verified 01/17/25 12:29 Erythromycin Allergy Unknown Rash Uncoded 01/17/25 12:29 Review of Systems Review of Systems: As per HPI Yes all other systems are reviewed and are negative Constitutional: Constitutional: Reports as per HPI PMFSH Past Medical History Medical History Foot infection Pneumonia Hemorrhoids Alcohol abuse Acute hyponatremia GERD (gastroesophageal reflux disease) Asthma Surgical History Hx of tonsillectomy H/O colonoscopy Social History Social History Household Members: None Housing: House Do you presently have visiting nurse or other home services: No Alcohol intake: current Alcohol intake frequency: former alcohol drinker Alcohol type: wine Comment: for impulsivity - camera applied - pt agreeable, aware:right to refuse Patient Tobacco Use Status: Never used Tobacco e-Cigarette/Vaping Use: Never Used Second Hand Smoke Exposure: No Advance Directives: No Advance Directives Information Provided: No Advance Directives Date on File: 01/26/21 Do you have a plan to hurt others: No Plan service: No Current occupational status: employed Current occupational exposures/hazards: No Cognitive needs: No Hearing needs: No Vision needs: No Physical Exam ED Vital Signs: Vital Signs - 24 hr 01/17/25 12:26 01/17/25 15:55 Temperature 97.9 F 98.6 F Pulse Rate 95 100 Respiratory Rate 18 12 Blood Pressure 131/77 143/85 H Pulse Oximetry 97 97 Oxygen Delivery Method Room Air Room Air BMI result Body Mass Index 26.8 Vital signs have been reviewed and appear to be correct. Blood pressure normal. Heart rate normal. Respiratory rate normal. Temperature normal. Oxygen saturation normal. Const General: cooperative and no acute distress Orientation/consciousness: oriented to person, oriented to place, oriented to time and patient oriented x3 Limitations: no limitations HENMT Head: Yes normocephalic and Yes atraumatic Ears: external ears normal General nose exam: Normal external nose present and Abnormal external nose present nasal erythema Face and sinus: Yes face symmetric Mouth: Normal oral and palatal mucosa present, lip normal, tongue normal, oropharynx normal and moist mucous membranes Throat: Yes uvula midline Eyes Pupils: Equal, round and reactive pupils present Neck Neck: Yes normal visual inspection and Yes supple Resp Effort & Inspection: normal respiratory effort and able to speak in complete sentences Auscultation: clear to auscultation bilaterally Cardio Rate: regular rate Rhythm: regular rhythm Heart sounds: S1 normal heart sound present and S2 normal heart sound present GI Palpation (GI): Soft to palpation and nontender Auscultation: normoactive bowel sounds General: Yes no CVA tenderness Back/Spine/Pelvis Back: no CVA tenderness Skin General skin exam: elasticity normal and turgor normal Neuro General: oriented to person, oriented to place, oriented to time, patient oriented x3, moves all extremities, no focal motor deficits and CN's II-XI intact bilaterally Cranial nerves: Yes Equal, round and reactive pupils present Cognition (Neuro): normal cognition Extrem General: Yes full ROM, Yes no calf tenderness and Yes pedal edema (bilateral 3+ pitting lower legs/ankles/pedal) Psych Mental Status: mental status grossly normal Affect: normal affect Thought process: Normal thought process present Medical Decision Making Medical Decision Making [facility] Narrative: Patient is a 69-year-old male with history of alcohol use disorder, hypertension, anemia, dyslipidemia, PVD presenting to the emergency department requesting assistance with detox from alcohol. On exam patient is awake, A+Ox3, VS WNL, afebrile, normal neurological exam without focal deficits, physical exam findings as above. Given reported symptoms and physical exam findings, initial differential includes but is not limited to alcohol intoxication, alcohol withdrawal, hepatic encephalopathy, cirrhosis, hepatitis, pancreatitis, alcoholic ketoacidosis. Labs notable for thrombocytopenia, pH of 7.56, hyponatremia, hypochloremia, slightly elevated anion gap, mildly elevated LFTs, ethanol of 285. Case discussed with Dr. Velez who accepts admission to medicine. Differential Diagnosis Differential Diagnoses: The differential diagnosis associated with the presentation includes As per [facility] Admission/Observation Consideration of admission/observation: Escalation of care including admission/observation considered Consult Healthcare Provider Management of the patient was discussed with: Hospitalist Lab Data [facility] Lab Attestation statement: I reviewed the patient's lab results. As per [facility] 01/17/25 14:22 01/17/25 14:22 Labs: Lab Results 01/17/25 01/17/25 01/17/25 Range/Units 14:22 16:50 17:00 WBC 6.2 (4.8-10.8) X10*3/uL RBC 4.76 (4.60-5.80) X10*6/uL Hgb 14.9 (14.0-18.0) g/dl Hct 39.8 L (42.0-52.0) % MCV 83.6 (80.0-98.0) fL MCH 31.3 (27.0-33.0) pg MCHC 37.4 H (31.0-36.0) g/dl RDW 13.2 (11.0-16.0) % Plt Count 132 L D (160-400) X10*3/uL MPV 9.4 (9.4-12.4) fL Immature Gran % (Auto) 0.5 H (0.0-0.4) % Neut % (Auto) 67.1 (45-73) % Lymph % (Auto) 22.3 (20-40) % [place] % (Auto) 9.6 (2-11) % Eos % (Auto) 0.2 (0-4) % Baso % (Auto) 0.3 (0-2) % Lymph # (Auto) 1.4 (1.2-4.9) X10*3/uL [place] # (Auto) 0.6 (0.1-1.2) X10*3/uL Eos # (Auto) 0.0 (0.0-0.4) X10*3/uL Baso # (Auto) 0.0 (0.0-0.2) X10*3/uL Abs Immat Gran (auto) 0.03 (0.00-0.03) X10*3/uL Absolute Neuts (auto) 4.1 (2.0-8.3) x10*3/uL Absolute Nucleated RBC 0.000 (0.0-0.012) X10*3/uL Nucleated RBC % (auto) 0.0 (0.0-0.2) /100WBC VBG pH 7.56 H (7.32-7.43) VBG pCO2 28 mmHg VBG pO2 220 mmHg VBG HCO3 25 (22-26) mmol/L VBG O2 Saturation 99.0 % VBG Base Excess 4.5 mmol/L Sodium 121 L (135-145) mmol/L Potassium 4.3 (3.3-5.1) mmol/L Chloride 77 L D (96-108) mmol/L Carbon Dioxide 26 (22-29) mmol/L Anion Gap 22 H (12-20) BUN 10 (9-16) mg/dL Creatinine 0.64 (0.5-1.4) mg/dL Estim Creat Clear Calc 109.3 Estimated GFR > 60 Random Glucose 98 (60-115) mg/dL Calcium 8.7 (8.4-10.2) mg/dL Magnesium 1.8 (1.6-2.6) mg/dL Total Bilirubin 0.6 (0.0-1.0) mg/dL Direct Bilirubin 0.3 (0.0-0.5) mg/dL AST 75 H (5-37) U/L ALT 54 H (0-40) U/L Alkaline Phosphatase 91 (39-117) U/L Troponin I High Sens 2.7 (<3.5-35.0) ng/L Total Protein 6.5 (6.5-8.0) g/dL Albumin 3.7 (3.5-5.0) g/dL Urine Color Yellow Urine Appearance Clear Urine pH 5.5 (5.0-9.0) Ur Specific [place] 1.015 (1.005-1.025) Urine Protein Negative (Neg-Trace) mg/dL Urine Glucose (UA) Negative (Negative) mg/dL Urine Ketones 15 (Negative) mg/dL Urine Blood Negative (Negative) Urine Nitrite Negative (Negative) Ur Leukocyte Esterase Negative (Negative) Ethyl Alcohol 285 mg/dL Independent Interpretation I performed an independent interpretation of an: EKG (Normal sinus rhythm, 94 beats per minute, normal OH interval and QTC) External Record Review External record reviewed: Inpatient record, Office record and Outpatient record Discharge Plan Discharge Patient Disposition: Admitted As Inpatient Prescriptions: No Action fluticasone propionate [Flonase Allergy Relief] 50 mcg/actuation spray,suspension 2 spray intranasal DAILY Qty: 16 2RF Rx Instructions: administer into each nostril thiamine HCl (vitamin B1) 100 mg tablet 100 mg PO DAILY Qty: 90 0RF folic acid 1 mg tablet 1 mg PO DAILY Qty: 90 0RF Print Language: Sinhala
[2025-01-17 14:34] LABS: Basophils Percent Auto 0.3 % (0-2); Eosinophils Percent Auto 0.2 % (0-4); Hematocrit 39.8 % (42.0-52.0); Hemoglobin 14.9 g/dl (14.0-18.0); Imm Gran Abs Auto 0.03 X10*3/uL (0.00-0.03); Imm Gran Pct Auto 0.5 % (0.0-0.4); Lymphocytes Absolute Auto 1.4 X10*3/uL (1.2-4.9); Lymphocytes Percent Auto 22.3 % (20-40); Mean Corpuscular HGB Conc 37.4 g/dl (31.0-36.0); Mean Corpuscular Hemoglobin 31.3 pg (27.0-33.0); Mean Corpuscular Volume 83.6 fL (80.0-98.0); Monocytes Absolute Auto 0.6 X10*3/uL (0.1-1.2); Monocytes Percent Auto 9.6 % (2-11); Neutrophils Absolute Auto 4.1 x10*3/uL (2.0-8.3); Neutrophils Percent Auto 67.1 % (45-73); Red Blood Count 4.76 X10*6/uL (4.60-5.80); Red Cell Distribution Width 13.2 % (11.0-16.0); White Blood Count 6.2 X10*3/uL (4.8-10.8)
[2025-01-17 14:50] LABS: Mean Platelet Volume 9.4 fL (9.4-12.4); Platelet Count 132 X10*3/uL (160-400)
[2025-01-17 14:55] LABS: Troponin-I High Sensitivity 2.7 ng/L (<3.5-35.0)
[2025-01-17 15:04] LABS: Alanine Aminotransferase 54 U/L (0-40); Albumin Level 3.7 g/dL (3.5-5.0); Alkaline Phosphatase 91 U/L (39-117); Anion Gap 22 (12-20); Aspartate Amino Transferase 75 U/L (5-37); Bilirubin Direct 0.3 mg/dL (0.0-0.5); Bilirubin Total 0.6 mg/dL (0.0-1.0); Blood Urea Nitrogen 10 mg/dL (9-16); Calcium 8.7 mg/dL (8.4-10.2); Carbon Dioxide 26 mmol/L (22-29); Chloride 77 mmol/L (96-108); Creatinine Clr Calc Pharmacy 109.3; Estimated Glomerular Filt Rate > 60; Ethanol 285 mg/dL; Glucose Random 98 mg/dL (60-115); Magnesium 1.8 mg/dL (1.6-2.6); Potassium 4.3 mmol/L (3.3-5.1); Sodium 121 mmol/L (135-145); Total Protein 6.5 g/dL (6.5-8.0)
[2025-01-17 15:55] VITALS: BP 143/85; PULSE 100; RESP 12; TEMP 37; O2SAT 97
--- NOTE | 2025-01-17 16:03 | PC.NURSE ---
patient noted to be incontinent in bed, linens changed, patient sitting on edge of bed. placed back in bed. patient leads placed back on patient. VSS at this time.
[2025-01-17 17:02] LABS: Appearance Urine Clear; Color Urine Yellow; Glucose Urine UA Negative (Negative); Leukocyte Esterase Urine Negative (Negative); Nitrite Urine Negative (Negative); PH 5.5 (5.0-9.0); Specific Gravity - Urine 1.015 (1.005-1.025); Urine Blood Negative (Negative); Urine Ketones 15 mg/dL (Negative); Urine Protein Negative (Neg-Trace)
[2025-01-17 17:03] LABS: VBG Base Excess 4.5 mmol/L; VBG HCO3 25 mmol/L (22-26); VBG pCO2 28 mmHg; VBG pH 7.56 (7.32-7.43); VBG pO2 220 mmHg
[2025-01-17 17:06] LABS: Venous Blood Gas Refer to POC result
[2025-01-17 17:13] LABS: Amphetamine Screen Urine Not Detected (Not Detect); Barbiturates, Urine Not Detected (Not Detect); Benzodiazepines Screen Urine Not Detected (Not Detect); Buprenorphine Scr Not Detected (Not Detect); Cannabinoid Screen Urine Not Detected (Not Detect); Cocaine Screen Urine Not Detected (Not Detect); Fentanyl, urine Not Detected (Not Detect); Methadone Screen, Urine Not Detected (Not Detect); Opiate Screen Urine Not Detected (Not Detect); Oxycodone Screen Urine Not Detected (Not Detect); Phencyclidine Screen Urine Not Detected (Not Detect)
--- NOTE | 2025-01-17 17:33 | P.HPHOSP_ITS ---
History of Present Illness Date of Service: 01/17/25 Chief Complaint: lethargy, vomiting 69M PMH etoh dependence, AFLD, presented with weakness and vomiting. Patient states he has been feeling unwell for the past 2 weeks. He states his friend told him to come to the ED because she was concerned about him. He has been unable to tolerate anything p.o., has been vomiting for the past 2 days. Last drink of wine was day prior to presentation. Denies any withdrawal symptoms. Denies abdominal pain, fever, chills, chest pain, shortness of breath. In ED noted to have a sodium of 121 and chloride of 77, Review of Systems 2 Review of Systems: Yes all other systems are reviewed and are negative [facility] Medical History Foot infection Pneumonia Hemorrhoids Alcohol abuse Acute hyponatremia GERD (gastroesophageal reflux disease) Asthma Surgical History Hx of tonsillectomy H/O colonoscopy Social History Household Members: None Housing: House Do you presently have visiting nurse or other home services: No Alcohol intake: current Alcohol intake frequency: former alcohol drinker Alcohol type: wine Comment: for impulsivity - camera applied - pt agreeable, aware:right to refuse Patient Tobacco Use Status: Never used Tobacco e-Cigarette/Vaping Use: Never Used Second Hand Smoke Exposure: No Advance Directives: No Advance Directives Information Provided: No Advance Directives Date on File: 01/26/21 Do you have a plan to hurt others: No Plan service: No Current occupational status: employed Current occupational exposures/hazards: No Cognitive needs: No Hearing needs: No Vision needs: No Meds Allergies Allergy/AdvReac Type Severity Reaction Status Date / Time amoxicillin [AMOXICILLIN] Allergy Unknown UNKNOWN, Verified 01/17/25 12:29 nausea and vomiting penicillin V Allergy Unknown rash Verified 01/17/25 12:29 Penicillins [PENICILLINS] Allergy Unknown UNKNOWN Verified 01/17/25 12:29 Erythromycin Allergy Unknown Rash Uncoded 01/17/25 12:29 Active Medications: Current Medications Enoxaparin Sodium (Enoxaparin Sodium 40 Mg/0.4 Ml Syringe) 40 mg SUBCUT Q24H LILIANA Sodium Chloride (Ns) 1,000 mls @ 50 mls/hr IVCONT .Q20H LILIANA Stop: 01/18/25 03:29 Physical Exam 2 Vital Signs and Narrative: Vital Signs: Last Vital Signs Temp 98.6 F 01/17/25 15:55 Pulse 100 01/17/25 15:55 Resp 12 01/17/25 15:55 BP 143/85 H 01/17/25 15:55 Pulse Ox 97 01/17/25 15:55 O2 Del Method Room Air 01/17/25 15:55 BMI result Body Mass Index 26.8 General: AO X 3, no acute distress, dissheveled Resp: CTA bilateral, no accessory muscles used CVS: S1,S2,RRR GI: soft, non tender, non distended Neuro: motor grossly intact, alert Psych: appropriate affect, appropriate insight Results Labs 01/17/25 14:22 01/17/25 14:22 Labs: Laboratory Results - last 24 hr 01/17/25 01/17/25 01/17/25 14:22 16:50 17:00 MCV 83.6 MCH 31.3 MCHC 37.4 H RDW 13.2 Plt Count 132 L D MPV 9.4 Immature Gran % (Auto) 0.5 H Neut % (Auto) 67.1 Lymph % (Auto) 22.3 [place] % (Auto) 9.6 Eos % (Auto) 0.2 Baso % (Auto) 0.3 Lymph # (Auto) 1.4 [place] # (Auto) 0.6 Eos # (Auto) 0.0 Baso # (Auto) 0.0 Abs Immat Gran (auto) 0.03 Absolute Neuts (auto) 4.1 Absolute Nucleated RBC 0.000 Nucleated RBC % (auto) 0.0 VBG pH 7.56 H VBG pCO2 28 VBG pO2 220 VBG HCO3 25 VBG O2 Saturation 99.0 VBG Base Excess 4.5 Anion Gap 22 H Estim Creat Clear Calc 109.3 Estimated GFR > 60 Random Glucose 98 Calcium 8.7 Magnesium 1.8 Total Bilirubin 0.6 Direct Bilirubin 0.3 AST 75 H ALT 54 H Alkaline Phosphatase 91 Total Protein 6.5 Albumin 3.7 Urine Color Yellow Urine Appearance Clear Urine pH 5.5 Ur Specific [place] 1.015 Urine Protein Negative Urine Glucose (UA) Negative Urine Ketones 15 Urine Blood Negative Urine Nitrite Negative Ur Leukocyte Esterase Negative Urine Opiates Screen Not Detected Ur Buprenorphine Scrn Not Detected Ur Oxycodone Screen Not Detected Urine Methadone Screen Not Detected Urine Fentanyl Screen Not Detected Ur Barbiturates Screen Not Detected Ur Phencyclidine Scrn Not Detected Ur Amphetamines Screen Not Detected U Benzodiazepines Scrn Not Detected Urine Cocaine Screen Not Detected U Marijuana (THC) Screen Not Detected Ethyl Alcohol 285 Assessment and Plan (1) Alcohol use disorder: Status: Acute Plan 69M PMH etoh dependence, AFLD, presented with weakness and vomiting Weakness due to acute hyponatremia Likely due to solute deficiency, gentle hydration with normal saline 50 cc an hour for 10 hours Monitor BMP avoid over-correction Nausea and vomiting Check CT abdomen PPI, Zofran Check lipase Alcohol dependence Currently not withdrawal, monitor CIWA Alcoholic fatty liver disease Abstinence recommended DVT prophylaxis-Lovenox Full Code Given degraded patient's hyponatremia expected to require at least 2 midnights inpatient Quality Stroke Does the patient have a stroke diagnosis?: No VTE Prior VTE?: No VTE Risk Level:: Medical - moderate - high VTE Device Contraindication: Treatment Not Indicated VTE Drug Contraindication: N/A - Med Ordered
[2025-01-17 17:38] VITALS: BP 129/84; PULSE 102; RESP 12; TEMP 36.6; O2SAT 98
[2025-01-17 17:38] LABS: Beta-Hydroxybutyrate 1.29 mmol/L (0.02-0.27)
[2025-01-17 17:40] LABS: Lipase 24 U/L (8-78)
[2025-01-17 17:58] LABS: Chloride Urine Random < 20.0 mmol/L; Potassium Urine Random 48.2 mmol/L; Sodium Urine Random < 20.0 mmol/L
[2025-01-17 18:02] LABS: Osmolality Urine 421 mosm/kg (373-1093)
--- NOTE | 2025-01-17 18:03 | PHA.MEDREC ---
Pharmacy Consult ? Medication Reconciliation Pharmacy has completed the medication reconciliation. Spoke with patient to confirm. He takes potassium and magnesium supplements but he does not know the strength, takes then 1 tab once daily. He also takes red beet powder once daily and flonase daily. He did not take any of these today.
[2025-01-17] MEDS: Pantoprazole Sodium 40 MG/10 ML VIAL IVPUSH (18:17)
[2025-01-17] MEDS: 0.9 % Sodium Chloride 500 ML 50 ML IV (18:17)
[2025-01-17 18:22] VITALS: BP 142/80; PULSE 103; RESP 21; TEMP 36.7; O2SAT 93
[2025-01-17] MEDS: ondansetron HCL 4 MG/2 ML VIAL IVPUSH (20:02)
--- NOTE | 2025-01-17 20:05 | PC.NURSE ---
pt reporting nausea at this time, pt medicated per mar. pt otherwise offers no complaints.
--- NOTE | 2025-01-17 23:12 | PC.NURSE ---
18F galvez placed at this time per provider order, pt voided 1200 dark yellow urine at this time. pt tolerated well.
--- NOTE | 2025-01-17 23:39 | MHC.EDTECH ---
pt expressed his sadness and asked if I can sit with him, spent few minutes talking to him and holding his hand, pt would like to talk to the firer marine in the morning
--- NOTE | 2025-01-17 23:46 | MHC.EDTECH ---
galvez bag emptied: 1000 mL of urine
[2025-01-18] VITALS (7 sets, daily range): BP systolic 122–140; BP diastolic 67–82; PULSE 98–112; RESP 16–20; TEMP 36.6–37.4; O2SAT 93–98; BMI 26.7
[2025-01-18] MEDS: Pantoprazole Sodium 40 MG/10 ML VIAL IVPUSH (05:49)
[2025-01-18] MEDS: ondansetron HCL 4 MG/2 ML VIAL IVPUSH ×2 (07:31→18:33)
[2025-01-18] MEDS: Enoxaparin Sodium 40 MG/0.4 ML SYRINGE SUBCUT (07:31)
[2025-01-18 08:19] LABS: Hemoglobin 12.8 g/dl (14.0-18.0); PLT CLUMP 1
[2025-01-18 08:21] LABS: Hematocrit 34.7 % (42.0-52.0); Mean Corpuscular HGB Conc 36.9 g/dl (31.0-36.0); Mean Corpuscular Hemoglobin 31.4 pg (27.0-33.0); Mean Platelet Volume 9.8 fL (9.4-12.4); Red Blood Count 4.08 X10*6/uL (4.60-5.80); Red Cell Distribution Width 13.2 % (11.0-16.0)
[2025-01-18 08:22] LABS: Platelet Count 123 X10*3/uL (160-400)
[2025-01-18 08:24] LABS: Prothrombin Time 12.2 SEC (10.9-12.4)
[2025-01-18 08:48] LABS: Alanine Aminotransferase 41 U/L (0-40); Albumin Level 3.3 g/dL (3.5-5.0); Alkaline Phosphatase 79 U/L (39-117); Anion Gap 18 (12-20); Aspartate Amino Transferase 59 U/L (5-37); Bilirubin Direct 0.4 mg/dL (0.0-0.5); Bilirubin Total 0.9 mg/dL (0.0-1.0); Blood Urea Nitrogen 12 mg/dL (9-16); Calcium 8.4 mg/dL (8.4-10.2); Carbon Dioxide 27 mmol/L (22-29); Chloride 79 mmol/L (96-108); Creatinine Clr Calc Pharmacy 87.4; Estimated Glomerular Filt Rate > 60; Glucose Random 93 mg/dL (60-115); Magnesium 1.6 mg/dL (1.6-2.6); Sodium 120 mmol/L (135-145); Total Protein 5.6 g/dL (6.5-8.0)
[2025-01-18] MEDS: polyethylene glycoL 3350 17 GM POWD.PACK PO (09:16)
--- NOTE | 2025-01-18 09:58 | HO.PM.IMPN ---
Subjective Subjective Date of Service: 01/18/25 Interval History: feeling better Physical Exam Vital Signs: Vital Signs: Last Vital Signs Temp 98.8 F 01/18/25 07:16 Pulse 100 01/18/25 07:16 Resp 16 01/18/25 07:16 BP 126/79 01/18/25 07:16 Pulse Ox 96 01/18/25 07:16 O2 Del Method Room Air 01/18/25 07:16 BMI result Body Mass Index 26.7 General: AO X 3, no acute distress Resp: CTA bilateral, no accessory muscles used CVS: S1,S2,RRR GI: soft, non tender, non distended Neuro: motor grossly intact, alert less edema Objective Data Active Medications Enoxaparin Sodium (Enoxaparin Sodium 40 Mg/0.4 Ml Syringe) 40 mg SUBCUT Q24H [facility] Last Admin: 01/18/25 07:31 Dose: 40 mg Documented By: BOUCHRA Finasteride (Finasteride 5 Mg Tablet) 5 mg PO DAILY [facility] Ondansetron HCl (Ondansetron Hcl 4 Mg/2 Ml Vial) 4 mg IVPUSH Q6H PRN PRN Reason: Nausea Last Admin: 01/18/25 07:31 Dose: 4 mg Documented By: BOUCHRA Pantoprazole Sodium (Pantoprazole Sodium 40 Mg/10 Ml Vial) 40 mg IVPUSH BID@0630,1630 [facility] Last Admin: 01/18/25 05:49 Dose: 40 mg Documented By: SHABBIR Sodium Chloride (Sodium Chloride Tab 1 Gm Tablet) 1 gm PO TID [facility] Tamsulosin HCl (Tamsulosin Hcl 0.4 Mg Capsule) 0.4 mg PO DAILY [facility] Labs 01/18/25 07:21 01/18/25 07:21 Labs: Laboratory Results - last 24 hr 01/17/25 01/17/25 01/17/25 14:22 16:50 17:00 MCV 83.6 MCH 31.3 MCHC 37.4 H RDW 13.2 Plt Count 132 L D MPV 9.4 Immature Gran % (Auto) 0.5 H Neut % (Auto) 67.1 Lymph % (Auto) 22.3 [place] % (Auto) 9.6 Eos % (Auto) 0.2 Baso % (Auto) 0.3 Lymph # (Auto) 1.4 [place] # (Auto) 0.6 Eos # (Auto) 0.0 Baso # (Auto) 0.0 Abs Immat Gran (auto) 0.03 Absolute Neuts (auto) 4.1 Absolute Nucleated RBC 0.000 Nucleated RBC % (auto) 0.0 PT INR VBG pH 7.56 H VBG pCO2 28 VBG pO2 220 VBG HCO3 25 VBG O2 Saturation 99.0 VBG Base Excess 4.5 Anion Gap 22 H Estim Creat Clear Calc 109.3 Estimated GFR > 60 Random Glucose 98 Calcium 8.7 Magnesium 1.8 Total Bilirubin 0.6 Direct Bilirubin 0.3 AST 75 H ALT 54 H Alkaline Phosphatase 91 Total Protein 6.5 Albumin 3.7 Lipase Beta-Hydroxybutyrate Urine Color Yellow Urine Appearance Clear Urine pH 5.5 Ur Specific [place] 1.015 Urine Protein Negative Urine Glucose (UA) Negative Urine Ketones 15 Urine Blood Negative Urine Nitrite Negative Ur Leukocyte Esterase Negative Urine Osmolality 421 Ur Random Sodium < 20.0 Ur Random Potassium 48.2 Ur Random Chloride < 20.0 Urine Opiates Screen Not Detected Ur Buprenorphine Scrn Not Detected Ur Oxycodone Screen Not Detected Urine Methadone Screen Not Detected Urine Fentanyl Screen Not Detected Ur Barbiturates Screen Not Detected Ur Phencyclidine Scrn Not Detected Ur Amphetamines Screen Not Detected U Benzodiazepines Scrn Not Detected Urine Cocaine Screen Not Detected U Marijuana (THC) Screen Not Detected Ethyl Alcohol 285 01/17/25 01/18/25 17:16 07:21 MCV 85.0 MCH 31.4 MCHC 36.9 H RDW 13.2 Plt Count 123 L MPV 9.8 Immature Gran % (Auto) Neut % (Auto) Lymph % (Auto) [place] % (Auto) Eos % (Auto) Baso % (Auto) Lymph # (Auto) [place] # (Auto) Eos # (Auto) Baso # (Auto) Abs Immat Gran (auto) Absolute Neuts (auto) Absolute Nucleated RBC 0.000 Nucleated RBC % (auto) 0.0 PT 12.2 INR 1.0 VBG pH VBG pCO2 VBG pO2 VBG HCO3 VBG O2 Saturation VBG Base Excess Anion Gap 18 Estim Creat Clear Calc 87.4 Estimated GFR > 60 Random Glucose 93 Calcium 8.4 Magnesium 1.6 Total Bilirubin 0.9 Direct Bilirubin 0.4 AST 59 H ALT 41 H Alkaline Phosphatase 79 Total Protein 5.6 L Albumin 3.3 L Lipase 24 Beta-Hydroxybutyrate 1.29 H Urine Color Urine Appearance Urine pH Ur Specific [place] Urine Protein Urine Glucose (UA) Urine Ketones Urine Blood Urine Nitrite Ur Leukocyte Esterase Urine Osmolality Ur Random Sodium Ur Random Potassium Ur Random Chloride Urine Opiates Screen Ur Buprenorphine Scrn Ur Oxycodone Screen Urine Methadone Screen Urine Fentanyl Screen Ur Barbiturates Screen Ur Phencyclidine Scrn Ur Amphetamines Screen U Benzodiazepines Scrn Urine Cocaine Screen U Marijuana (THC) Screen Ethyl Alcohol Assessment and Plan (1) Alcohol use disorder: Status: Acute Plan 69M PMH etoh dependence, AFLD, presented with weakness and vomiting Weakness due to acute hyponatremia Multifactorial solute deficiency, SIADH Fluid restrict, salt tablets Monitor BMP avoid over-correction Check chest x-ray Nausea and vomiting PPI, Zofran Urinary retention 1.2 L residual Start Flomax and Proscar, voiding trial Alcohol dependence Currently not withdrawal, monitor CIWA Alcoholic fatty liver disease Abstinence recommended DVT prophylaxis-Lovenox Full Code reason for continued hospitalization:hyponatremia Quality Stroke Does the patient have a stroke diagnosis?: No VTE Prior VTE?: No VTE Risk Level:: Medical - moderate - high VTE Device Contraindication: Treatment Not Indicated VTE Drug Contraindication: N/A - Med Ordered
[2025-01-18] MEDS: Finasteride 5 MG TABLET PO (10:11)
[2025-01-18] MEDS: Sodium Chloride Tab 1 GM TABLET PO ×3 (10:11→22:09)
[2025-01-18] MEDS: Tamsulosin HCL 0.4 MG CAPSULE PO (10:11)
--- NOTE | 2025-01-18 16:37 | MHC.CM.PN ---
PT REPORTS HE LIVES ALONE AND IS INDEPENDENT WITH CARE HE HAS NO SERVICES OR DME HCP ON FILE PCP: MARCUS HARKINS IMM DELIVERED DCP: HOME NO SERVICES VIA PRIVATE TRANSPORT
[2025-01-18] MEDS: Calcium Carbonate 750 MG TAB.CHEW PO ×2 (18:08→23:54)
[2025-01-19] VITALS (7 sets, daily range): BP systolic 114–147; BP diastolic 72–87; PULSE 96–145; RESP 16–18; TEMP 36.3–37.2; O2SAT 96–98; BMI 26.7
[2025-01-19] MEDS: Omeprazole 40 MG CAPSULE.DR PO (05:17)
[2025-01-19 07:11] LABS: Hematocrit 34.4 % (42.0-52.0); Hemoglobin 12.5 g/dl (14.0-18.0); Mean Corpuscular HGB Conc 36.3 g/dl (31.0-36.0); Mean Corpuscular Hemoglobin 31.3 pg (27.0-33.0); Mean Corpuscular Volume 86.2 fL (80.0-98.0); Mean Platelet Volume 9.9 fL (9.4-12.4); Platelet Count 105 X10*3/uL (160-400); Red Blood Count 3.99 X10*6/uL (4.60-5.80); Red Cell Distribution Width 13.1 % (11.0-16.0); White Blood Count 3.6 X10*3/uL (4.8-10.8)
[2025-01-19 07:16] LABS: Anion Gap 15 (12-20); Blood Urea Nitrogen 14 mg/dL (9-16); Calcium 8.6 mg/dL (8.4-10.2); Carbon Dioxide 28 mmol/L (22-29); Chloride 84 mmol/L (96-108); Creatinine Clr Calc Pharmacy 87.4; Estimated Glomerular Filt Rate > 60; Glucose Random 105 mg/dL (60-115); Magnesium 1.7 mg/dL (1.6-2.6); Potassium 3.4 mmol/L (3.3-5.1); Sodium 124 mmol/L (135-145)
[2025-01-19] MEDS: Folic Acid 1 MG TABLET PO (08:03)
[2025-01-19] MEDS: Finasteride 5 MG TABLET PO (08:03)
[2025-01-19] MEDS: Thiamine HCL 100 MG TABLET PO (08:03)
[2025-01-19] MEDS: Multivitamin TABLET 1 TAB PO (08:03)
[2025-01-19] MEDS: Tamsulosin HCL 0.4 MG CAPSULE PO (08:03)
[2025-01-19] MEDS: Sodium Chloride Tab 1 GM TABLET PO ×3 (08:03→19:32)
[2025-01-19] MEDS: Enoxaparin Sodium 40 MG/0.4 ML SYRINGE SUBCUT (08:04)
--- NOTE | 2025-01-19 08:17 | P.PNIM_ITS ---
Subjective Subjective Date of Service: 01/19/25 Interval History: LE edema resolved Physical Exam 2 Vital Signs: Vital Signs: Last Vital Signs Temp 97.5 F 01/19/25 07:09 Pulse 100 01/19/25 07:09 Resp 16 01/19/25 07:09 BP 143/82 H 01/19/25 07:09 Pulse Ox 96 01/19/25 07:09 O2 Del Method Room Air 01/19/25 07:09 BMI result Body Mass Index 26.7 General: AO X 3, no acute distress Resp: CTA bilateral, no accessory muscles used CVS: S1,S2,RRR GI: soft, non tender, non distended Neuro: motor grossly intact, alert edema resolved Objective Data Active Medications Calcium Carbonate (Calcium Carbonate 750 Mg Tab.Chew) 750 mg PO Q4H PRN PRN Reason: Heartburn Last Admin: 01/18/25 23:54 Dose: 750 mg Documented By: JARON Enoxaparin Sodium (Enoxaparin Sodium 40 Mg/0.4 Ml Syringe) 40 mg SUBCUT Q24H [facility] Last Admin: 01/19/25 08:04 Dose: 40 mg Documented By: MIN Finasteride (Finasteride 5 Mg Tablet) 5 mg PO DAILY [facility] Last Admin: 01/19/25 08:03 Dose: 5 mg Documented By: MIN Folic Acid (Folic Acid 1 Mg Tablet) 1 mg PO DAILY [facility] Last Admin: 01/19/25 08:03 Dose: 1 mg Documented By: MIN Multivitamins/Vitamin C (Multivitamin Tablet) 1 tab PO DAILY [facility] Last Admin: 01/19/25 08:03 Dose: 1 tab Documented By: MIN Omeprazole (Omeprazole 40 Mg Capsule.Dr) 40 mg PO DAILY@0630 [facility] Last Admin: 01/19/25 05:17 Dose: 40 mg Documented By: JARON Ondansetron HCl (Ondansetron Hcl 4 Mg/2 Ml Vial) 4 mg IVPUSH Q6H PRN PRN Reason: Nausea Last Admin: 01/18/25 18:33 Dose: 4 mg Documented By: BOUCHRA Sodium Chloride (Sodium Chloride Tab 1 Gm Tablet) 1 gm PO TID [facility] Last Admin: 01/19/25 08:03 Dose: 1 gm Documented By: MIN Tamsulosin HCl (Tamsulosin Hcl 0.4 Mg Capsule) 0.4 mg PO DAILY [facility] Last Admin: 01/19/25 08:03 Dose: 0.4 mg Documented By: MIN Thiamine HCl (Thiamine Hcl 100 Mg Tablet) 100 mg PO DAILY [facility] Last Admin: 01/19/25 08:03 Dose: 100 mg Documented By: MIN Labs 01/19/25 05:47 01/19/25 05:47 Labs: Laboratory Results - last 24 hr 01/18/25 01/19/25 07:21 05:47 MCV 85.0 86.2 MCH 31.4 31.3 MCHC 36.9 H 36.3 H RDW 13.2 13.1 Plt Count 123 L 105 L MPV 9.8 9.9 Absolute Nucleated RBC 0.000 0.000 Nucleated RBC % (auto) 0.0 0.0 PT 12.2 INR 1.0 Anion Gap 18 15 Estim Creat Clear Calc 87.4 87.4 Estimated GFR > 60 > 60 Random Glucose 93 105 Calcium 8.4 8.6 Magnesium 1.6 1.7 Total Bilirubin 0.9 Direct Bilirubin 0.4 AST 59 H ALT 41 H Alkaline Phosphatase 79 Total Protein 5.6 L Albumin 3.3 L Assessment and Plan (1) Alcohol use disorder: Status: Acute Plan 69M PMH etoh dependence, AFLD, presented with weakness and vomiting Weakness due to acute hyponatremia Multifactorial solute deficiency, SIADH Fluid restrict, salt tablets Monitor BMP avoid over-correction, improving at acceptable rate LE edema 3rd spacing, resolved pancytopenia unspecified ?due to etoh liver check b12, folate Nausea and vomiting PPI, Zofran Urinary retention 1.2 L residual Start Flomax and Proscar, galvez removed Alcohol dependence Currently not withdrawal, monitor CIWA Alcoholic fatty liver disease Abstinence recommended continue thiamine, mvi, folic acid weakness sPT eval DVT prophylaxis-Lovenox Full Code reason for continued hospitalization:hyponatremia Quality Stroke Does the patient have a stroke diagnosis?: No VTE Prior VTE?: No VTE Risk Level:: Medical - moderate - high VTE Device Contraindication: Treatment Not Indicated VTE Drug Contraindication: N/A - Med Ordered
[2025-01-19] MEDS: Potassium Chloride ER 20 MEQ TAB.ER.PRT 40 MEQ PO (09:01)
--- NOTE | 2025-01-19 12:36 | MHC.CM.PN ---
EMR REVIEWED, PT W/HYPONATREMIA/ETOH, NA 124 TODAY, PLAN FOR SODIUM REPLACEMENT, CM WILL CONT TO FOLLOW DC NEEDS.
--- NOTE | 2025-01-19 13:46 | HO.ADDICT_ITS ---
History of Present Illness Date of Service: 01/19/2025 Chief Complaint: hyponatremia Reason for Consult: AUD Sources of Information: patient interviewed and chart reviewed HPI Narrative: Patient is a 69 year old male with history of AUD, medically admitted with hyponatremia. Consult requested as patient screened +AUDIT C screen and requested to meet with [facility]. Seen by leather craftsman on 01/18, notes reviewed--including substance use and treatment history. He reports drinking a 3L box of wine every day or every 2 days (3L=4 bottles of wine) Patient seen in room 444. He is awake, alert, pleasant and engaged in interview. Soft spoken, with intermittent eye contact. He reports learning that a family member was dealing with an illness was a precipitant to drinking after over 2 years of abstaining from drinking alcohol. He is a bit self deprecating and feels shame and guilt for having others worry about him--example neighbor who came to visit him. Discussed how drinking has been a coping strategy for him, and it may be worth considering other avenues to develop and strengthen alternate coping strategies. Discussed information that was provided to him yesterday by red mud thickener operator--including IOP. He is still considering next steps. He denies any withdrawal sx., including nausea, tremor, anxiety, restlessness. CIWA scores have been 0. He appears overall comfortable, hypertensive and tachy--however this has been since admission Sodium 124 today Past Psychiatric History: not reviewed Review of Systems Constitutional: Reports as per HPI Gastrointestinal: Denies abdominal pain, Denies nausea and Denies vomiting Denies tremor(s) Diagnostics Vital Signs (24Hr): Vital Signs - 24 hr 01/18/25 15:58 01/18/25 19:23 01/18/25 23:49 Temperature 97.9 F 98.8 F 97.8 F Pulse Rate 98 112 H 102 H Respiratory Rate 16 20 18 Blood Pressure 137/80 122/67 130/76 Pulse Oximetry 98 96 98 Oxygen Delivery Method Room Air Room Air Room Air 01/19/25 03:21 01/19/25 07:09 01/19/25 11:06 Temperature 97.4 F 97.5 F 98.2 F Pulse Rate 96 100 116 H Respiratory Rate 18 16 16 Blood Pressure 140/85 H 143/82 H 147/85 H Pulse Oximetry 98 96 98 Oxygen Delivery Method Room Air Room Air Room Air BMI result Body Mass Index 26.7 Labs 01/19/25 05:47 01/19/25 05:47 Labs: Laboratory Results - last 48 hr 01/17/25 01/17/25 01/17/25 14:22 16:50 17:00 WBC 6.2 RBC 4.76 Hgb 14.9 Hct 39.8 L MCV 83.6 MCH 31.3 MCHC 37.4 H RDW 13.2 Plt Count 132 L D MPV 9.4 Immature Gran % (Auto) 0.5 H Neut % (Auto) 67.1 Lymph % (Auto) 22.3 [place] % (Auto) 9.6 Eos % (Auto) 0.2 Baso % (Auto) 0.3 Lymph # (Auto) 1.4 [place] # (Auto) 0.6 Eos # (Auto) 0.0 Baso # (Auto) 0.0 Abs Immat Gran (auto) 0.03 Absolute Neuts (auto) 4.1 Absolute Nucleated RBC 0.000 Nucleated RBC % (auto) 0.0 PT INR VBG pH 7.56 H VBG pCO2 28 VBG pO2 220 VBG HCO3 25 VBG O2 Saturation 99.0 VBG Base Excess 4.5 Sodium 121 L Potassium 4.3 Chloride 77 L D Carbon Dioxide 26 Anion Gap 22 H BUN 10 Creatinine 0.64 Estim Creat Clear Calc 109.3 Estimated GFR > 60 Random Glucose 98 Calcium 8.7 Magnesium 1.8 Total Bilirubin 0.6 Direct Bilirubin 0.3 AST 75 H ALT 54 H Alkaline Phosphatase 91 Troponin I High Sens 2.7 Total Protein 6.5 Albumin 3.7 Lipase Beta-Hydroxybutyrate Urine Color Yellow Urine Appearance Clear Urine pH 5.5 Ur Specific [place] 1.015 Urine Protein Negative Urine Glucose (UA) Negative Urine Ketones 15 Urine Blood Negative Urine Nitrite Negative Ur Leukocyte Esterase Negative Urine Osmolality 421 Ur Random Sodium < 20.0 Ur Random Potassium 48.2 Ur Random Chloride < 20.0 Urine Opiates Screen Not Detected Ur Buprenorphine Scrn Not Detected Ur Oxycodone Screen Not Detected Urine Methadone Screen Not Detected Urine Fentanyl Screen Not Detected Ur Barbiturates Screen Not Detected Ur Phencyclidine Scrn Not Detected Ur Amphetamines Screen Not Detected U Benzodiazepines Scrn Not Detected Urine Cocaine Screen Not Detected U Marijuana (THC) Screen Not Detected Ethyl Alcohol 285 01/17/25 01/18/25 01/19/25 17:16 07:21 05:47 WBC 6.0 3.6 L RBC 4.08 L 3.99 L Hgb 12.8 L 12.5 L Hct 34.7 L 34.4 L MCV 85.0 86.2 MCH 31.4 31.3 MCHC 36.9 H 36.3 H RDW 13.2 13.1 Plt Count 123 L 105 L MPV 9.8 9.9 Immature Gran % (Auto) Neut % (Auto) Lymph % (Auto) [place] % (Auto) Eos % (Auto) Baso % (Auto) Lymph # (Auto) [place] # (Auto) Eos # (Auto) Baso # (Auto) Abs Immat Gran (auto) Absolute Neuts (auto) Absolute Nucleated RBC 0.000 0.000 Nucleated RBC % (auto) 0.0 0.0 PT 12.2 INR 1.0 VBG pH VBG pCO2 VBG pO2 VBG HCO3 VBG O2 Saturation VBG Base Excess Sodium 120 L* 124 L Potassium 4.0 3.4 Chloride 79 L 84 L Carbon Dioxide 27 28 Anion Gap 18 15 BUN 12 14 Creatinine 0.75 0.75 Estim Creat Clear Calc 87.4 87.4 Estimated GFR > 60 > 60 Random Glucose 93 105 Calcium 8.4 8.6 Magnesium 1.6 1.7 Total Bilirubin 0.9 Direct Bilirubin 0.4 AST 59 H ALT 41 H Alkaline Phosphatase 79 Troponin I High Sens Total Protein 5.6 L Albumin 3.3 L Lipase 24 Beta-Hydroxybutyrate 1.29 H Urine Color Urine Appearance Urine pH Ur Specific [place] Urine Protein Urine Glucose (UA) Urine Ketones Urine Blood Urine Nitrite Ur Leukocyte Esterase Urine Osmolality Ur Random Sodium Ur Random Potassium Ur Random Chloride Urine Opiates Screen Ur Buprenorphine Scrn Ur Oxycodone Screen Urine Methadone Screen Urine Fentanyl Screen Ur Barbiturates Screen Ur Phencyclidine Scrn Ur Amphetamines Screen U Benzodiazepines Scrn Urine Cocaine Screen U Marijuana (THC) Screen Ethyl Alcohol Imaging Radiology Impressions: ITS Impressions Venous Duplex 01/18/25 09:38 IMPRESSION: No evidence of deep venous thrombosis involving the bilateral lower extremities. Electronically signed by: Navi Sutherland MD 01/19/2025 08:37 AM EDT RP Mental Status Exam Mental Status Exam Patient Appearance: Appropriate Patient Orientation: Person, Place, Time and Situation Level of Consciousness: Awake, Appropriate and Alert Patient Behavior: Guarded and Cooperative Affect Description: Constricted Speech Pattern: Clear and Soft-Spoken Hallucinations: None Thought Process: Intact Thought Content: positive for Intact Judgement: Good Medications Medications Current Medications Calcium Carbonate (Calcium Carbonate 750 Mg Tab.Chew) 750 mg PO Q4H PRN PRN Reason: Heartburn Last Admin: 01/18/25 23:54 Dose: 750 mg Enoxaparin Sodium (Enoxaparin Sodium 40 Mg/0.4 Ml Syringe) 40 mg SUBCUT Q24H [facility] Last Admin: 01/19/25 08:04 Dose: 40 mg Finasteride (Finasteride 5 Mg Tablet) 5 mg PO DAILY [facility] Last Admin: 01/19/25 08:03 Dose: 5 mg Folic Acid (Folic Acid 1 Mg Tablet) 1 mg PO DAILY [facility] Last Admin: 01/19/25 08:03 Dose: 1 mg Multivitamins/Vitamin C (Multivitamin Tablet) 1 tab PO DAILY [facility] Last Admin: 01/19/25 08:03 Dose: 1 tab Omeprazole (Omeprazole 40 Mg Capsule.Dr) 40 mg PO DAILY@0630 [facility] Last Admin: 01/19/25 05:17 Dose: 40 mg Ondansetron HCl (Ondansetron Hcl 4 Mg/2 Ml Vial) 4 mg IVPUSH Q6H PRN PRN Reason: Nausea Last Admin: 01/18/25 18:33 Dose: 4 mg Sodium Chloride (Sodium Chloride Tab 1 Gm Tablet) 1 gm PO TID [facility] Last Admin: 01/19/25 08:03 Dose: 1 gm Tamsulosin HCl (Tamsulosin Hcl 0.4 Mg Capsule) 0.4 mg PO DAILY [facility] Last Admin: 01/19/25 08:03 Dose: 0.4 mg Thiamine HCl (Thiamine Hcl 100 Mg Tablet) 100 mg PO DAILY [facility] Last Admin: 01/19/25 08:03 Dose: 100 mg Allergies Allergies Allergy/AdvReac Type Severity Reaction Status Date / Time amoxicillin [AMOXICILLIN] Allergy Unknown UNKNOWN, Verified 01/17/25 12:29 nausea and vomiting penicillin V Allergy Unknown rash Verified 01/17/25 12:29 Penicillins [PENICILLINS] Allergy Unknown UNKNOWN Verified 01/17/25 12:29 Erythromycin Allergy Unknown Rash Uncoded 01/17/25 12:29 Assessment & Plan Assessment & Plan (1) Alcohol use disorder: Status: Acute Assessment and Plan: * no withdrawal sx * declines intervention at this time, encouraged to reach out should he change his mind or have any questions Total time managing care of this patient today _30___ minutes. PMFSH Past Medical History Medical History Foot infection Pneumonia Hemorrhoids Alcohol abuse Acute hyponatremia GERD (gastroesophageal reflux disease) Asthma Surgical History Surgical History Hx of tonsillectomy H/O colonoscopy Social History Social History Household Members: None Housing: House Do you presently have visiting nurse or other home services: No Alcohol intake: current Alcohol intake frequency: former alcohol drinker Alcohol type: wine Comment: for impulsivity - camera applied - pt agreeable, aware:right to refuse Patient Tobacco Use Status: Never used Tobacco e-Cigarette/Vaping Use: Never Used Second Hand Smoke Exposure: No Advance Directives Date on File: 01/26/21 service: No Current occupational status: employed Current occupational exposures/hazards: No Cognitive needs: No Hearing needs: No Vision needs: No
--- NOTE | 2025-01-19 14:45 | MHC.CLN ---
NUTRITION REGULAR DIET WITH 1500 ML FLUID RESTRICTION. [id number] L TODAY. SKIN WITH UNSTAGEABLE AREA TO SACRUM. NO SUPPLEMENTS AT THIS TIME DUE TO FLUID RESTRICTION. ENCOURAGE INTAKE AT MEALS ABLE. SEE CLINICAL NUTRITION ASSESSMENT 01/19/25.
--- NOTE | 2025-01-19 15:05 | HO.WOUND ---
Wound Consult: Initial 69yr old?male admitted to [facility] on 01/17/25 - See progress notes and H&P for detailed history.? Wound consult placed for sacral wound.? Patient agreeable to assessment and photo documentation.? During initial patient history patient denies fecal or urinary incontinence. After leaving the room to return with Triad cream for application patient reported fecal incontinence and was previously embarrassed to discuss. He reports it is liquid stool. We discussed FI (Fecal Incontinence) generally the contributing factors he may have and the relationship to his Alcohol use and development of FI. I encouraged the patient to seek expert care from GI specialist to ensure assessment and possible treatments for FI - he reports he does have a Switchman that he follows with but he has not disclosed his incontinence with him he was advised to have a honest discussion with his provider as there may be interventions he may be eligible for such as electrical stimulation, Pelvic floor muscle exercises, biofeedback and bulk forming agents such as soluble fiber (Metamucil). First line defence for FI is stool consistency management: this can be achieved by limiting alcohol intake, eating regularly balanced diets rich in fiber, and not skipping meals and adding Soluble fiber supplement such as Metamucil. Soluble fiber is best introduced slowly and working your way up to full dose - this is available over the counter. Currently patient reports he is using some soft gauze or pad or tissue to place between his buttock to prevent the stool from reaching his pants. We discussed special order fecal absorbency pads such as B-Sure pads designed to fit between buttock and wick moisture away from skin. Patient was advised he may used female menstrual pad to absorb fluid and wick away from skin however these should be changed often throughout the day once soiled. Patient had several questions that lead to further discussion patient seems to have a good understanding of next steps and things he can put into action now. Sacrum Etiology: Unstageable Pressure Injury ?Present on Admission Wound Bed: adherent yellow slough with red granulation buds noted - full thickness tissue loss Drainage / Odor: العلي drainage noted Edges: ? Irregular Geno wound: ? MASD - IAD (Moisture Associated Skin Damage - Incontinence Associated Dermatitis) No Induration, Fluctuance or Warmth noted Pain: tenderness reported when assessed Goals of Treatment: ? Off Load Pressure - Triad and dressing to aid in pressure redistribution and allow for autolytic debridement Recommendations: 1. Turn and Reposition every 2 hours and as needed for patient comfort.? Use pillows or wedges to support off loading positions. 2. Off Load all bony prominences with use of pillows and heel boots if needed.? Apply Preventative foams where needed. ? 3. Monitor for incontinence and moisture control, use barrier creams when needed for prevention and treatment. 4. Provide adequate and supplemental nutrition.? 5.Continue low air loss mattress. 6. When applicable maintain blood glucose levels per Providers order. Sacrum - Off Load Pressure with Q2 hr turns and use of pillows - Cleanse with PH balance spray or wipes, pat dry. ?Apply thin layer of Triad to wound bed. Do not remove all of paste between applications as this may cause further skin damage.? Cover with foam dressing to aid in off loading and protection from friction. Change every 3 days and PRN. Re-consult wound care Nurse for wound deterioration or wound changes.
[2025-01-19] MEDS: Calcium Carbonate 750 MG TAB.CHEW PO (19:32)
[2025-01-20] VITALS (7 sets, daily range): BP systolic 122–155; BP diastolic 66–96; PULSE 85–134; RESP 16–18; TEMP 36.2–36.8; O2SAT 98–100
[2025-01-20] MEDS: Omeprazole 40 MG CAPSULE.DR PO (06:13)
[2025-01-20 07:07] LABS: Hematocrit 37.8 % (42.0-52.0); Hemoglobin 13.6 g/dl (14.0-18.0); Mean Corpuscular Hemoglobin 31.4 pg (27.0-33.0); Mean Corpuscular Volume 87.3 fL (80.0-98.0); Mean Platelet Volume 9.5 fL (9.4-12.4); Platelet Count 116 X10*3/uL (160-400); Red Blood Count 4.33 X10*6/uL (4.60-5.80); Red Cell Distribution Width 13.2 % (11.0-16.0)
[2025-01-20 07:22] LABS: Anion Gap 14 (12-20); Blood Urea Nitrogen 12 mg/dL (9-16); Calcium 9.2 mg/dL (8.4-10.2); Carbon Dioxide 28 mmol/L (22-29); Chloride 92 mmol/L (96-108); Creatinine Clr Calc Pharmacy 97.8; Estimated Glomerular Filt Rate > 60; Glucose Random 102 mg/dL (60-115); Magnesium 1.8 mg/dL (1.6-2.6); Potassium 3.5 mmol/L (3.3-5.1); Sodium 130 mmol/L (135-145)
[2025-01-20 07:59] LABS: Folate 9.3 ng/mL (> or = 4.0); Vitamin B12 1165 pg/mL (200-900)
[2025-01-20] MEDS: Thiamine HCL 100 MG TABLET PO (08:07)
[2025-01-20] MEDS: Multivitamin TABLET 1 TAB PO (08:07)
[2025-01-20] MEDS: Enoxaparin Sodium 40 MG/0.4 ML SYRINGE SUBCUT (08:07)
[2025-01-20] MEDS: Sodium Chloride Tab 1 GM TABLET PO ×3 (08:07→22:24)
[2025-01-20] MEDS: Folic Acid 1 MG TABLET PO (08:07)
--- NOTE | 2025-01-20 09:31 | HO.PM.IMPN ---
Subjective Subjective Date of Service: 01/20/25 Interval History: LE edema resolved Physical Exam Vital Signs: Vital Signs: Last Vital Signs Temp 98.0 F 01/20/25 07:04 Pulse 134 H 01/20/25 08:26 Resp 18 01/20/25 07:04 BP 155/93 H 01/20/25 07:04 Pulse Ox 98 01/20/25 07:04 O2 Del Method Room Air 01/20/25 07:04 BMI result Body Mass Index 26.7 General: AO X 3, no acute distress Resp: CTA bilateral, no accessory muscles used CVS: S1,S2,RRR GI: soft, non tender, non distended Neuro: motor grossly intact, alert edema resolved Objective Data Active Medications Calcium Carbonate (Calcium Carbonate 750 Mg Tab.Chew) 750 mg PO Q4H PRN PRN Reason: Heartburn Last Admin: 01/19/25 19:32 Dose: 750 mg Documented By: JARON Enoxaparin Sodium (Enoxaparin Sodium 40 Mg/0.4 Ml Syringe) 40 mg SUBCUT Q24H [facility] Last Admin: 01/20/25 08:07 Dose: 40 mg Documented By: TAMIA Finasteride (Finasteride 5 Mg Tablet) 5 mg PO DAILY [facility] Last Admin: 01/20/25 08:14 Dose: Not Given Documented By: TAMIA Non-Admin Reason: Patient Refused Folic Acid (Folic Acid 1 Mg Tablet) 1 mg PO DAILY [facility] Last Admin: 01/20/25 08:07 Dose: 1 mg Documented By: TAMIA Multivitamins/Vitamin C (Multivitamin Tablet) 1 tab PO DAILY [facility] Last Admin: 01/20/25 08:07 Dose: 1 tab Documented By: TAMIA Omeprazole (Omeprazole 40 Mg Capsule.) 40 mg PO DAILY@0630 [facility] Last Admin: 01/20/25 06:13 Dose: 40 mg Documented By: JARON Ondansetron HCl (Ondansetron Hcl 4 Mg/2 Ml Vial) 4 mg IVPUSH Q6H PRN PRN Reason: Nausea Last Admin: 01/18/25 18:33 Dose: 4 mg Documented By: BOUCHRA Psyllium Hydrophilic Mucilloid (Psyllium Seed 3.7 Gm Packet) 3.7 gm PO DAILY [facility] Last Admin: 01/20/25 08:15 Dose: Not Given Documented By: TAMIA Non-Admin Reason: Patient Refused Sodium Chloride (Sodium Chloride Tab 1 Gm Tablet) 1 gm PO TID [facility] Last Admin: 01/20/25 08:07 Dose: 1 gm Documented By: TAMIA Tamsulosin HCl (Tamsulosin Hcl 0.4 Mg Capsule) 0.4 mg PO DAILY [facility] Last Admin: 01/20/25 08:14 Dose: Not Given Documented By: TAMIA Non-Admin Reason: Patient Refused Thiamine HCl (Thiamine Hcl 100 Mg Tablet) 100 mg PO DAILY [facility] Last Admin: 01/20/25 08:07 Dose: 100 mg Documented By: TAMIA Labs 01/20/25 06:20 01/20/25 06:20 Labs: Laboratory Results - last 24 hr 01/20/25 06:20 MCV 87.3 MCH 31.4 MCHC 36.0 RDW 13.2 Plt Count 116 L MPV 9.5 Absolute Nucleated RBC 0.000 Nucleated RBC % (auto) 0.0 Anion Gap 14 Estim Creat Clear Calc 97.8 Estimated GFR > 60 Random Glucose 102 Calcium 9.2 D Magnesium 1.8 Vitamin B12 1165 H Folate 9.3 Assessment and Plan (1) Alcohol use disorder: Status: Acute Plan 69M PMH etoh dependence, AFLD, presented with weakness and vomiting Weakness due to acute hyponatremia Multifactorial solute deficiency, SIADH Fluid restrict, salt tablets Monitor BMP avoid over-correction, improving at acceptable rate LE edema 3rd spacing, resolved pancytopenia unspecified ?due to etoh liver Nausea and vomiting PPI, Zofran Urinary retention 1.2 L residual Started Flomax and Proscar voiding trial successful Alcohol dependence Currently not withdrawal, monitor CIWA Alcoholic fatty liver disease Abstinence recommended continue thiamine, mvi, folic acid weakness PT recommending str DVT prophylaxis-Lovenox Full Code reason for continued hospitalization:hyponatremia Quality Stroke Does the patient have a stroke diagnosis?: No VTE Prior VTE?: No VTE Risk Level:: Medical - moderate - high VTE Device Contraindication: Treatment Not Indicated VTE Drug Contraindication: N/A - Med Ordered
--- NOTE | 2025-01-20 12:24 | MHC.RECOVRN ---
Met with pt in 444-1 to follow up and provide support.? Pt awake, alert, easily engages in conversation, sitting in recliner watching TV Pt reports feeling well and is expecting to be D/C soon.? Pt received multiple community support options along with education for each. Pt declined need for assistance wtih referrals to treatment. He will review and contact on his own.? Pt denies other concerns at this time.? T/w available as needed.
[2025-01-21] VITALS (9 sets, daily range): BP systolic 80–150; BP diastolic 52–90; PULSE 86–117; RESP 16–17; TEMP 36.6–37.1; O2SAT 96–99
[2025-01-21] MEDS: Omeprazole 40 MG CAPSULE.DR PO (05:52)
[2025-01-21 07:48] LABS: Hematocrit 38.8 % (42.0-52.0); Hemoglobin 13.3 g/dl (14.0-18.0); Mean Corpuscular HGB Conc 34.3 g/dl (31.0-36.0); Mean Corpuscular Hemoglobin 30.6 pg (27.0-33.0); Mean Corpuscular Volume 89.2 fL (80.0-98.0); Mean Platelet Volume 9.4 fL (9.4-12.4); Platelet Count 124 X10*3/uL (160-400); Red Blood Count 4.35 X10*6/uL (4.60-5.80); Red Cell Distribution Width 13.2 % (11.0-16.0); White Blood Count 3.8 X10*3/uL (4.8-10.8)
[2025-01-21 08:16] LABS: Alanine Aminotransferase 49 U/L (0-40); Albumin Level 3.2 g/dL (3.5-5.0); Alkaline Phosphatase 78 U/L (39-117); Anion Gap 12 (12-20); Aspartate Amino Transferase 62 U/L (5-37); Bilirubin Direct 0.2 mg/dL (0.0-0.5); Bilirubin Total 0.6 mg/dL (0.0-1.0); Blood Urea Nitrogen 12 mg/dL (9-16); Calcium 8.8 mg/dL (8.4-10.2); Carbon Dioxide 27 mmol/L (22-29); Chloride 94 mmol/L (96-108); Creatinine Clr Calc Pharmacy 99.3; Estimated Glomerular Filt Rate > 60; Glucose Random 112 mg/dL (60-115); Magnesium 1.7 mg/dL (1.6-2.6); Potassium 3.4 mmol/L (3.3-5.1); Sodium 130 mmol/L (135-145); Total Protein 5.6 g/dL (6.5-8.0)
[2025-01-21] MEDS: Tamsulosin HCL 0.4 MG CAPSULE PO (09:33)
[2025-01-21] MEDS: Sodium Chloride Tab 1 GM TABLET PO (09:33)
[2025-01-21] MEDS: Folic Acid 1 MG TABLET PO (09:33)
[2025-01-21] MEDS: Psyllium seed 3.7 GM PACKET PO (09:33)
[2025-01-21] MEDS: Thiamine HCL 100 MG TABLET PO (09:33)
[2025-01-21] MEDS: Multivitamin TABLET 1 TAB PO (09:34)
[2025-01-21] MEDS: Finasteride 5 MG TABLET PO (09:34)
[2025-01-21] MEDS: Enoxaparin Sodium 40 MG/0.4 ML SYRINGE SUBCUT (09:34)
--- NOTE | 2025-01-21 10:47 | MHC.CM.PN ---
Addendum entered by Aleida Abel 01/22/25 10:26: [facility] obtained [employer] auth late in the day yesterday for anticipated dc to STR/SNF today, but Patient is not yet medically cleared for dc. SNF is aware and CM will continue ti follow. Original Note: CM met with Patient at bedside to discuss dc planning and PT's recommendation for STR. Patient's first choice SNF is [facility] and CM has asked them to initiate insurance auth. CM will follow.
[2025-01-21] MEDS: Calcium Carbonate 750 MG TAB.CHEW PO ×2 (11:50→19:47)
--- NOTE | 2025-01-21 12:57 | MHC.CLN ---
F/U VARIABLE PO INTAKE REGULAR DIET WITH 1500ML F.R. PT WITH INCREASED NUTRITION NEEDS R/T PRESSURE INJURY RECOMMEND ADDING MAGIC CUP TID TO PROMOTE WOUND HEALING SUPP TO PROVIDE 870KCALS, 27G PROTEIN MONITOR PO INTAKE AND ENCOURAGE SUPPLEMENTS
--- NOTE | 2025-01-21 12:59 | HO.PM.IMPN ---
Subjective Subjective Date of Service: 01/21/25 Interval History: seen and evaluated feels little better Na improving to 130 passing urine , no retention no other events Review of Systems Review of Systems: Yes all other systems are reviewed and are negative Physical Exam Vital Signs: Vital Signs: Last Vital Signs Temp 97.8 F 01/21/25 10:58 Pulse 107 H 01/21/25 10:58 Resp 16 01/21/25 10:58 BP 134/80 01/21/25 10:58 Pulse Ox 97 01/21/25 10:58 O2 Del Method Room Air 01/21/25 10:58 BMI result Body Mass Index 26.7 Const: Other: Constitutional : interactive, not in distress Cardiovascular : no JVP, no lower extremity edema Respiratory : bilateral chest movement, not in resp distress Gastrointestinal: soft, lax, Non tender Skin : Warm, Dry Neurological : Alert & oriented , No focal deficit Objective Data Active Medications Calcium Carbonate (Calcium Carbonate 750 Mg Tab.Chew) 750 mg PO Q4H PRN PRN Reason: Heartburn Last Admin: 01/21/25 11:50 Dose: 750 mg Documented By: SYLVESTER Enoxaparin Sodium (Enoxaparin Sodium 40 Mg/0.4 Ml Syringe) 40 mg SUBCUT Q24H [facility] Last Admin: 01/21/25 09:34 Dose: 40 mg Documented By: SYLVESTER Finasteride (Finasteride 5 Mg Tablet) 5 mg PO DAILY [facility] Last Admin: 01/21/25 09:34 Dose: 5 mg Documented By: SYLVESTER Folic Acid (Folic Acid 1 Mg Tablet) 1 mg PO DAILY [facility] Last Admin: 01/21/25 09:33 Dose: 1 mg Documented By: SYLVESTER Multivitamins/Vitamin C (Multivitamin Tablet) 1 tab PO DAILY [facility] Last Admin: 01/21/25 09:34 Dose: 1 tab Documented By: SYLVESTER Omeprazole (Omeprazole 40 Mg Capsule.) 40 mg PO DAILY@0630 [facility] Last Admin: 01/21/25 05:52 Dose: 40 mg Documented By: GLENNY Ondansetron HCl (Ondansetron Hcl 4 Mg/2 Ml Vial) 4 mg IVPUSH Q6H PRN PRN Reason: Nausea Last Admin: 01/18/25 18:33 Dose: 4 mg Documented By: BOUCHRA Psyllium Hydrophilic Mucilloid (Psyllium Seed 3.7 Gm Packet) 3.7 gm PO DAILY [facility] Last Admin: 01/21/25 09:33 Dose: 3.7 gm Documented By: SYLVESTER Sodium Chloride (Sodium Chloride Tab 1 Gm Tablet) 1 gm PO TID [facility] Last Admin: 01/21/25 09:33 Dose: 1 gm Documented By: SYLVESTER Tamsulosin HCl (Tamsulosin Hcl 0.4 Mg Capsule) 0.4 mg PO DAILY [facility] Last Admin: 01/21/25 09:33 Dose: 0.4 mg Documented By: SYLVESTER Thiamine HCl (Thiamine Hcl 100 Mg Tablet) 100 mg PO DAILY [facility] Last Admin: 01/21/25 09:33 Dose: 100 mg Documented By: SYLVESTER Labs 01/21/25 07:25 01/21/25 07:25 Labs: Laboratory Results - last 24 hr 01/21/25 07:25 MCV 89.2 MCH 30.6 MCHC 34.3 RDW 13.2 Plt Count 124 L MPV 9.4 Absolute Nucleated RBC 0.000 Nucleated RBC % (auto) 0.0 Anion Gap 12 Estim Creat Clear Calc 99.3 Estimated GFR > 60 Random Glucose 112 Calcium 8.8 Magnesium 1.7 Total Bilirubin 0.6 Direct Bilirubin 0.2 AST 62 H ALT 49 H Alkaline Phosphatase 78 Total Protein 5.6 L Albumin 3.2 L Assessment and Plan (1) Vomiting: Status: Acute (2) Hyponatremia: Status: Acute Plan 69M PMH etoh dependence, AFLD, presented with weakness and vomiting Weakness due to acute hyponatremia Multifactorial solute deficiency, SIADH Improving slowly Fluid restrict, salt tablets Monitor BMP avoid over-correction improving at acceptable rate PT following LE edema 3rd spacing, resolved pancytopenia unspecified likely due to etoh liver Nausea and vomiting PPI, Zofran Urinary retention no recurrence On Flomax and Proscar voiding trial successful Alcohol dependence Currently not withdrawal, monitor CIWA Alcoholic fatty liver disease Abstinence recommended continue thiamine, mvi, folic acid weakness PT recommending str DVT prophylaxis-Lovenox Full Code reason for continued hospitalization: hyponatremia slowly improving Quality Stroke Does the patient have a stroke diagnosis?: No VTE Prior VTE?: No VTE Risk Level:: Medical - moderate - high VTE Device Contraindication: Treatment Not Indicated VTE Drug Contraindication: N/A - Med Ordered
[2025-01-21 13:31] LABS: Anion Gap 11 (12-20); Blood Urea Nitrogen 21 mg/dL (9-16); Calcium 8.7 mg/dL (8.4-10.2); Carbon Dioxide 26 mmol/L (22-29); Chloride 97 mmol/L (96-108); Creatinine Clr Calc Pharmacy 105.7; Estimated Glomerular Filt Rate > 60; Glucose Random 132 mg/dL (60-115); Potassium 3.7 mmol/L (3.3-5.1); Sodium 130 mmol/L (135-145)
[2025-01-21] MEDS: 0.9 % Sodium Chloride 1,000 ML 999 ML IV (15:32)
[2025-01-21] MEDS: Sodium Chloride Tab 1 GM TABLET 2 GM PO ×2 (16:22→19:46)
[2025-01-21] MEDS: Midodrine HCl 5 MG TABLET PO ×2 (16:22→19:46)
--- NOTE | 2025-01-21 19:31 | PC.NURSE ---
rn went to administer po med to patient approx 1500, pt co heartburn resulting in with each eructation he brought up scant amounts of alondra blood, rn notified md who agreed to a set of orthostatics. pt states he is not able to lay flat, sitting bp 86/62 and pt not able to stand for more than one minute for standing bp before he started to co of dizziness. md notified, 1 liter bolus of ns administered, with repeat bp 30 minutes after start of bolus 86/64 and bp at end of bolus 90/66. pt remained a&ox3, no co pain or dizziness while sitting of note, rn left a sputum container for patient to spit blood into but no further episodes of bleeding occurred per patient.
[2025-01-21] MEDS: Albumin Human 25 % 100 ML 133.33 ML IV ×2 (19:47→21:57)
[2025-01-22] VITALS (7 sets, daily range): BP systolic 104–135; BP diastolic 59–77; PULSE 97–157; RESP 16–18; TEMP 36.5–37.2; O2SAT 97–100
[2025-01-22] MEDS: Calcium Carbonate 750 MG TAB.CHEW PO (02:13)
[2025-01-22] MEDS: Omeprazole 40 MG CAPSULE.DR PO (05:56)
[2025-01-22 07:23] LABS: MANUAL DIFF FLAG NO
[2025-01-22 07:36] LABS: Basophils Absolute Auto 0.1 X10*3/uL (0.0-0.2); Eosinophils Percent Auto 0.6 % (0-4); Hematocrit 25.7 % (42.0-52.0); Hemoglobin 8.9 g/dl (14.0-18.0); Imm Gran Abs Auto 0.07 X10*3/uL (0.00-0.03); Imm Gran Pct Auto 1.4 % (0.0-0.4); Lymphocytes Absolute Auto 1.9 X10*3/uL (1.2-4.9); Lymphocytes Percent Auto 36.4 % (20-40); Mean Corpuscular HGB Conc 34.6 g/dl (31.0-36.0); Mean Corpuscular Hemoglobin 31.8 pg (27.0-33.0); Mean Corpuscular Volume 91.8 fL (80.0-98.0); Mean Platelet Volume 9.9 fL (9.4-12.4); Monocytes Absolute Auto 0.9 X10*3/uL (0.1-1.2); Monocytes Percent Auto 17.8 % (2-11); Neutrophils Absolute Auto 2.2 x10*3/uL (2.0-8.3); Neutrophils Percent Auto 42.8 % (45-73); Platelet Count 147 X10*3/uL (160-400); Red Cell Distribution Width 13.3 % (11.0-16.0); White Blood Count 5.2 X10*3/uL (4.8-10.8)
[2025-01-22 07:46] LABS: Anion Gap 9 (12-20); Blood Urea Nitrogen 46 mg/dL (9-16); Calcium 8.4 mg/dL (8.4-10.2); Carbon Dioxide 29 mmol/L (22-29); Chloride 101 mmol/L (96-108); Creatinine Clr Calc Pharmacy 121.3; Estimated Glomerular Filt Rate > 60; Glucose Random 110 mg/dL (60-115); Potassium 3.8 mmol/L (3.3-5.1); Sodium 135 mmol/L (135-145)
[2025-01-22] MEDS: 0.9 % Sodium Chloride 1,000 ML 999 ML IV (08:42)
[2025-01-22] MEDS: Thiamine HCL 100 MG TABLET PO (09:10)
[2025-01-22] MEDS: Sodium Chloride Tab 1 GM TABLET 2 GM PO ×3 (09:10→20:01)
[2025-01-22] MEDS: Tamsulosin HCL 0.4 MG CAPSULE PO (09:10)
[2025-01-22] MEDS: Midodrine HCl 5 MG TABLET PO ×3 (09:10→20:01)
[2025-01-22] MEDS: Folic Acid 1 MG TABLET PO (09:10)
[2025-01-22] MEDS: Multivitamin TABLET 1 TAB PO (09:11)
[2025-01-22] MEDS: Psyllium seed 3.7 GM PACKET PO (09:11)
[2025-01-22 09:47] LABS: Hematocrit 25.1 % (42.0-52.0); Hemoglobin 8.5 g/dl (14.0-18.0); Mean Corpuscular HGB Conc 33.9 g/dl (31.0-36.0); Mean Corpuscular Hemoglobin 30.9 pg (27.0-33.0); Mean Corpuscular Volume 91.3 fL (80.0-98.0); Mean Platelet Volume 9.5 fL (9.4-12.4); Platelet Count 131 X10*3/uL (160-400); Red Blood Count 2.75 X10*6/uL (4.60-5.80); Red Cell Distribution Width 13.6 % (11.0-16.0); White Blood Count 5.3 X10*3/uL (4.8-10.8)
[2025-01-22] MEDS: Pantoprazole Sodium 40 MG/10 ML VIAL IVPUSH ×2 (11:47→16:43)
[2025-01-22] MEDS: 0.9 % Sodium Chloride 1,000 ML 75 ML IVCONT ×2 (11:47→23:37)
--- NOTE | 2025-01-22 13:46 | HO.PM.IMPN ---
Subjective Subjective Date of Service: 01/22/25 Interval History: seen and evaluated feels little better Na improving to 135 Hb dropped to 8.9, had reported rectal bleed and nasal bleed overnight passing urine , no retention no other events Review of Systems Review of Systems: Yes all other systems are reviewed and are negative Physical Exam Vital Signs: Vital Signs: Last Vital Signs Temp 97.7 F 01/22/25 11:54 Pulse 157 H 01/22/25 13:09 Resp 16 01/22/25 11:54 BP 111/60 01/22/25 11:54 Pulse Ox 100 01/22/25 11:54 O2 Del Method Room Air 01/22/25 11:54 BMI result Body Mass Index 26.7 Const: Other: Constitutional : interactive, not in distress Cardiovascular : no JVP, no lower extremity edema Respiratory : bilateral chest movement, not in resp distress Gastrointestinal: soft, lax, Non tender Skin : Warm, Dry Neurological : Alert & oriented , No focal deficit Objective Data Active Medications Calcium Carbonate (Calcium Carbonate 750 Mg Tab.Chew) 750 mg PO Q4H PRN PRN Reason: Heartburn Last Admin: 01/22/25 02:13 Dose: 750 mg Documented By: GLENNY Enoxaparin Sodium (Enoxaparin Sodium 40 Mg/0.4 Ml Syringe) 40 mg SUBCUT Q24H [facility] Last Admin: 01/21/25 09:34 Dose: 40 mg Documented By: SYLVESTER Finasteride (Finasteride 5 Mg Tablet) 5 mg PO DAILY [facility] Last Admin: 01/21/25 09:34 Dose: 5 mg Documented By: SYLVESTER Folic Acid (Folic Acid 1 Mg Tablet) 1 mg PO DAILY [facility] Last Admin: 01/22/25 09:10 Dose: 1 mg Documented By: ELAINE Sodium Chloride (Ns) 1,000 mls @ 75 mls/hr IVCONT .[id number] [facility] Last Admin: 01/22/25 11:47 Dose: 75 mls/hr Documented By: ELAINE Midodrine (Midodrine Hcl 5 Mg Tablet) 5 mg PO TID [facility] Last Admin: 01/22/25 09:10 Dose: 5 mg Documented By: ELAINE Multivitamins/Vitamin C (Multivitamin Tablet) 1 tab PO DAILY [facility] Last Admin: 01/22/25 09:11 Dose: 1 tab Documented By: ELAINE Ondansetron HCl (Ondansetron Hcl 4 Mg/2 Ml Vial) 4 mg IVPUSH Q6H PRN PRN Reason: Nausea Last Admin: 01/18/25 18:33 Dose: 4 mg Documented By: BOUCHRA Pantoprazole Sodium (Pantoprazole Sodium 40 Mg/10 Ml Vial) 40 mg IVPUSH BID@0630,1630 [facility] Last Admin: 01/22/25 11:47 Dose: 40 mg Documented By: ELAINE Psyllium Hydrophilic Mucilloid (Psyllium Seed 3.7 Gm Packet) 3.7 gm PO DAILY [facility] Last Admin: 01/22/25 09:11 Dose: 3.7 gm Documented By: ELAINE Sodium Chloride (Sodium Chloride Tab 1 Gm Tablet) 2 gm PO TID [facility] Last Admin: 01/22/25 09:10 Dose: 2 gm Documented By: ELAINE Tamsulosin HCl (Tamsulosin Hcl 0.4 Mg Capsule) 0.4 mg PO DAILY [facility] Last Admin: 01/22/25 09:10 Dose: 0.4 mg Documented By: ELAINE Thiamine HCl (Thiamine Hcl 100 Mg Tablet) 100 mg PO DAILY [facility] Last Admin: 01/22/25 09:10 Dose: 100 mg Documented By: ELAINE Labs 01/22/25 09:27 01/22/25 06:15 Labs: Laboratory Results - last 24 hr 01/22/25 01/22/25 06:15 09:27 MCV 91.8 91.3 MCH 31.8 30.9 MCHC 34.6 33.9 RDW 13.3 13.6 Plt Count 147 L 131 L MPV 9.9 9.5 Immature Gran % (Auto) 1.4 H Neut % (Auto) 42.8 L Lymph % (Auto) 36.4 Edmunds % (Auto) 17.8 H Eos % (Auto) 0.6 Baso % (Auto) 1.0 Lymph # (Auto) 1.9 Edmunds # (Auto) 0.9 Eos # (Auto) 0.0 Baso # (Auto) 0.1 Abs Immat Gran (auto) 0.07 H Absolute Neuts (auto) 2.2 Absolute Nucleated RBC 0.000 0.000 Nucleated RBC % (auto) 0.0 0.0 Anion Gap 9 L Estim Creat Clear Calc 121.3 Estimated GFR > 60 Random Glucose 110 Calcium 8.4 Assessment and Plan (1) Vomiting: Status: Acute (2) Alcohol intoxication: Status: Acute (3) Hyponatremia: Status: Acute (4) Acute on chronic blood loss anemia: Status: Acute Plan 69M PMH etoh dependence, AFLD, presented with weakness and vomiting Acute on chronic blood loss anemia Hb dropped from 13 ro 8.9 likely GI bleed PAntoprazole bid DX Lovenox GI consult monitor H&H and transfuse if drops below 8 Weakness due to acute hyponatremia Multifactorial; solute deficiency, SIADH Improving slowly to 135 Fluid restrict, salt tablets Monitor BMP avoid over-correction improving at acceptable rate PT following Tahcycardia Sinus rhythm likely related to acute blood loss IVF and blood transfusion if needed monitor LE edema 3rd spacing, resolved pancytopenia unspecified likely due to etoh liver Nausea and vomiting PPI, Zofran Urinary retention no recurrence On Flomax and Proscar voiding trial successful Alcohol dependence Currently not withdrawal, monitor CIWA Alcoholic fatty liver disease Abstinence recommended continue thiamine, mvi, folic acid weakness PT recommending str DVT prophylaxis-Lovenox Full Code reason for continued hospitalization: hyponatremia slowly improving, Acute blood loss anemia w GIB pending GI eval Quality Stroke Does the patient have a stroke diagnosis?: No VTE Prior VTE?: No VTE Risk Level:: Medical - moderate - high VTE Device Contraindication: Treatment Not Indicated VTE Drug Contraindication: N/A - Med Ordered
[2025-01-22 14:24] LABS: Hematocrit 24.6 % (42.0-52.0); Hemoglobin 8.6 g/dl (14.0-18.0); Mean Corpuscular Hemoglobin 32.1 pg (27.0-33.0); Mean Corpuscular Volume 91.8 fL (80.0-98.0); Mean Platelet Volume 9.3 fL (9.4-12.4); Platelet Count 132 X10*3/uL (160-400); Red Blood Count 2.68 X10*6/uL (4.60-5.80); Red Cell Distribution Width 13.6 % (11.0-16.0)
[2025-01-22] MEDS: Magnesium Hydrox/Alum Hydrox 30 ML ORAL.SUSP PO (20:00)
[2025-01-23] VITALS (15 sets, daily range): BP systolic 110–137; BP diastolic 69–84; PULSE 67–101; RESP 17–20; TEMP 36.5–37.1; O2SAT 98–100
[2025-01-23] MEDS: Pantoprazole Sodium 40 MG/10 ML VIAL IVPUSH ×2 (05:58→16:23)
[2025-01-23 06:41] LABS: MANUAL DIFF FLAG NO
[2025-01-23 06:48] LABS: Hematocrit 22.3 % (42.0-52.0); Hemoglobin 7.7 g/dl (14.0-18.0); Imm Gran Abs Auto 0.05 X10*3/uL (0.00-0.03); Imm Gran Pct Auto 1.3 % (0.0-0.4); Lymphocytes Absolute Auto 1.6 X10*3/uL (1.2-4.9); Lymphocytes Percent Auto 40.5 % (20-40); Mean Corpuscular HGB Conc 34.5 g/dl (31.0-36.0); Mean Corpuscular Hemoglobin 31.4 pg (27.0-33.0); Mean Platelet Volume 9.4 fL (9.4-12.4); Monocytes Absolute Auto 0.7 X10*3/uL (0.1-1.2); Monocytes Percent Auto 17.1 % (2-11); Neutrophils Absolute Auto 1.5 x10*3/uL (2.0-8.3); Neutrophils Percent Auto 39.1 % (45-73); Platelet Count 135 X10*3/uL (160-400); Red Blood Count 2.45 X10*6/uL (4.60-5.80); White Blood Count 3.9 X10*3/uL (4.8-10.8)
[2025-01-23 07:05] LABS: Anion Gap 8 (12-20); Blood Urea Nitrogen 20 mg/dL (9-16); Carbon Dioxide 24 mmol/L (22-29); Chloride 108 mmol/L (96-108); Creatinine Clr Calc Pharmacy 128.5; Estimated Glomerular Filt Rate > 60; Glucose Random 106 mg/dL (60-115); Potassium 3.4 mmol/L (3.3-5.1); Sodium 137 mmol/L (135-145)
[2025-01-23 08:02] LABS: OBS Int Ctl Valid YES; OBS1 POSITIVE (NEGATIVE)
[2025-01-23] MEDS: Thiamine HCL 100 MG TABLET PO (08:49)
[2025-01-23] MEDS: Tamsulosin HCL 0.4 MG CAPSULE PO (08:49)
[2025-01-23] MEDS: Midodrine HCl 5 MG TABLET PO ×3 (08:49→22:34)
[2025-01-23] MEDS: Sodium Chloride Tab 1 GM TABLET 2 GM PO ×3 (08:49→22:34)
[2025-01-23] MEDS: Psyllium seed 3.7 GM PACKET PO (08:50)
[2025-01-23] MEDS: Multivitamin TABLET 1 TAB PO (08:50)
[2025-01-23] MEDS: Folic Acid 1 MG TABLET PO (08:50)
--- NOTE | 2025-01-23 11:51 | MHC.SHP ---
Pre-Procedural Eval Section A - 24 Hr Update-Section A only Date of Service: 01/23/25 The patient is an INPATIENT: Yes Changes since office visit: No Cold of Flu in the past 2 weeks, No New Medical Problems, No Changes in Medication and No Patient answered all questions The patient has been examined within 24 hours of the surgical procedure. The History & Physical has been completed within 30 days and I have reviewed it.: Yes Section B - Complete if H&P > 30 days Chief Complaint: hyponatremia Allergies: Allergies Allergy/AdvReac Type Severity Reaction Status Date / Time amoxicillin [AMOXICILLIN] Allergy Unknown UNKNOWN, Verified 01/17/25 12:29 nausea and vomiting penicillin V Allergy Unknown rash Verified 01/17/25 12:29 Penicillins [PENICILLINS] Allergy Unknown UNKNOWN Verified 01/17/25 12:29 Erythromycin Allergy Unknown Rash Uncoded 01/17/25 12:29 Plan I have reviewed the history and physical and performed a pertinent physical examination on my patient. No changes have occurred unless specified. Time Spent With Patient Time: Total time managing care of this patient today ____ minutes.
--- NOTE | 2025-01-23 11:51 | PM.EVENT ---
Event Note Date of Service: 01/23/25 Event Note: GI consult dictated Plan for EGD later today for further evaluation of melena. Time Spent With Patient Time: Total time managing care of this patient today ____ minutes.
--- NOTE | 2025-01-23 13:06 | MHC.CLN ---
F/U PREVIOUS PO 75-100% PT IS NOW NPO FOR PROCEDURE PT WITH INCREASED NUTRITION NEEDS R/T PRESSURE INJURY WHEN DIET TO RESUME; RECOMMEND RE-STARTING MAGIC CUP TID TO PROMOTE WOUND HEALING SUPP TO PROVIDE 870KCALS, 27G PROTEIN CONTINUE TO MONITOR PO INTAKE AND ENCOURAGE SUPPLEMENTS
--- NOTE | 2025-01-23 14:35 | CONS_ITS ---
DATE OF SERVICE: 01/23/2025 REFERRING PHYSICIAN: Vannesa Maynard MD REASON FOR CONSULTATION: Melena. HISTORY OF PRESENT ILLNESS: The patient is a pleasant 69-year-old man, who was admitted to the hospital on January 17 with complaints of weakness and vomiting for 2 days prior to admission and admitted for further treatment of those symptoms including hyponatremia. During the hospitalization, he was placed on Lovenox and yesterday began to have black stools. Hematocrit dropped from 38.8 on January 21 to 25.7 on January 22 and 22.3 today. He is currently being transfused. He denies a prior history of upper GI bleeding. He formally drank alcohol regularly, but says he has not had any for approximately 3 weeks. He denies use of NSAIDs and has no history of peptic ulcer disease. Lovenox has been held. Previous GI evaluation included colonoscopy in March 2023, which was done for screening and a history of adenomatous colon polyps. This was normal and 10-year followup was recommended. PAST MEDICAL HISTORY: 1. Colon polyps as above. 2. Recent GI bleeding. 3. Pneumonia. 4. Alcohol abuse. 5. Gastroesophageal reflux disease. 6. Asthma. PAST SURGICAL HISTORY: Includes tonsillectomy and colonoscopy. CURRENT MEDICATIONS: Current medication list is reviewed in the chart. ALLERGIES: MULTIPLE MEDICATION ALLERGIES ARE REVIEWED. FAMILY HISTORY: This is reviewed with the patient and is negative for GI malignancy. SOCIAL HISTORY: There is no current tobacco, alcohol, or substance abuse. REVIEW OF SYSTEMS: SKIN: No pruritus. HEENT: Negative. CARDIOPULMONARY: No shortness of breath or chest pain. GASTROINTESTINAL: As above. GENITOURINARY: Negative. NEUROPSYCHIATRIC: Negative. PHYSICAL EXAMINATION: GENERAL: Shows a pleasant male, sitting comfortably in a chair. VITAL SIGNS: Stable. SKIN: Anicteric. HEENT: Shows no scleral icterus. NECK: Without lymphadenopathy or thyromegaly. LUNGS: Clear. HEART: Shows a regular rate and rhythm. S1, S2. No murmur. ABDOMEN: Soft without focal masses or tenderness. Bowel sounds are present. No organomegaly is noted. EXTREMITIES: Show stasis changes. LABORATORY DATA AND IMAGING STUDIES: Reviewed. CT scanning on January 17 showed hepatic steatosis. IMPRESSION: Gastrointestinal bleeding. The differential diagnosis for his GI bleeding includes erosive esophagitis, gastritis, peptic ulcer disease, and mass lesions as well as AVMs. I have discussed endoscopy with him. This will be arranged for this afternoon. In the interim, I agree with holding his Lovenox and treating him with a proton pump inhibitor and blood transfusions as you are doing. Thanks for asking me to see him. I will follow him in the hospital with you. MD AVRIL Edouard/DUGLAS / [id number]
--- NOTE | 2025-01-23 14:37 | HO.ANESPROP2 ---
HPI - Anesthesia Eval Consult details Narrative: For EGD - for GI bleeding PMFSH Active Problems Active Problems: All Active Problems Acute on chronic blood loss anemia (Acute) Vomiting (Acute) Alcohol intoxication (Acute) Tachycardia (Acute) Cough (Acute) Hyponatremia (Acute) Encounter for routine adult physical exam with abnormal findings (Acute) Physical exam (Acute) Varicose veins of both legs with edema (Acute) PVD (peripheral vascular disease) (Acute) Dyslipidemia (Acute) Screening for colon cancer (Acute) Anemia (Acute) Screening PSA (prostate specific antigen) (Acute) HTN (hypertension) (Acute) Alcohol use disorder (Acute) Pancytopenia (Acute) Gastroenteritis (Acute) Altered mental status (Acute) Acute hyponatremia (Acute) Past Medical History Medical History Foot infection Pneumonia Hemorrhoids Alcohol abuse Acute hyponatremia GERD (gastroesophageal reflux disease) Asthma Family History Family history of problems with anesthesia: No Surgical History Surgical History Hx of tonsillectomy H/O colonoscopy History of Problems with Anesthesia: No Social History Social History Household Members: None Housing: House Do you presently have visiting nurse or other home services: No Alcohol intake: current Alcohol intake frequency: former alcohol drinker Alcohol type: wine Comment: for impulsivity - camera applied - pt agreeable, aware:right to refuse Patient Tobacco Use Status: Never used Tobacco e-Cigarette/Vaping Use: Never Used Second Hand Smoke Exposure: No Advance Directives Date on File: 01/26/21 service: No Current occupational status: employed Current occupational exposures/hazards: No Cognitive needs: No Hearing needs: No Vision needs: No Meds Allergies Allergy/AdvReac Type Severity Reaction Status Date / Time amoxicillin [AMOXICILLIN] Allergy Unknown UNKNOWN, Verified 01/17/25 12:29 nausea and vomiting penicillin V Allergy Unknown rash Verified 01/17/25 12:29 Penicillins [PENICILLINS] Allergy Unknown UNKNOWN Verified 01/17/25 12:29 Erythromycin Allergy Unknown Rash Uncoded 01/17/25 12:29 Active Medications: kCurrent Medications Calcium Carbonate (Calcium Carbonate 750 Mg Tab.Chew) 750 mg PO Q4H PRN PRN Reason: Heartburn Last Admin: 01/22/25 02:13 Dose: 750 mg Enoxaparin Sodium (Enoxaparin Sodium 40 Mg/0.4 Ml Syringe) 40 mg SUBCUT Q24H [facility] Last Admin: 01/21/25 09:34 Dose: 40 mg Finasteride (Finasteride 5 Mg Tablet) 5 mg PO DAILY [facility] Last Admin: 01/21/25 09:34 Dose: 5 mg Folic Acid (Folic Acid 1 Mg Tablet) 1 mg PO DAILY [facility] Last Admin: 01/23/25 08:50 Dose: 1 mg Sodium Chloride (Ns) 1,000 mls @ 75 mls/hr IVCONT .[id number] [facility] Last Infusion: 01/23/25 13:46 Dose: Infused Midodrine (Midodrine Hcl 5 Mg Tablet) 5 mg PO TID [facility] Last Admin: 01/23/25 08:49 Dose: 5 mg Multivitamins/Vitamin C (Multivitamin Tablet) 1 tab PO DAILY [facility] Last Admin: 01/23/25 08:50 Dose: 1 tab Ondansetron HCl (Ondansetron Hcl 4 Mg/2 Ml Vial) 4 mg IVPUSH Q6H PRN PRN Reason: Nausea Last Admin: 01/18/25 18:33 Dose: 4 mg Pantoprazole Sodium (Pantoprazole Sodium 40 Mg/10 Ml Vial) 40 mg IVPUSH BID@0630,1630 [facility] Last Admin: 01/23/25 05:58 Dose: 40 mg Psyllium Hydrophilic Mucilloid (Psyllium Seed 3.7 Gm Packet) 3.7 gm PO DAILY [facility] Last Admin: 01/23/25 08:50 Dose: 3.7 gm Sodium Chloride (Sodium Chloride Tab 1 Gm Tablet) 2 gm PO TID [facility] Last Admin: 01/23/25 08:49 Dose: 2 gm Tamsulosin HCl (Tamsulosin Hcl 0.4 Mg Capsule) 0.4 mg PO DAILY [facility] Last Admin: 01/23/25 08:49 Dose: 0.4 mg Thiamine HCl (Thiamine Hcl 100 Mg Tablet) 100 mg PO DAILY [facility] Last Admin: 01/23/25 08:49 Dose: 100 mg Home Medications ?Medication ?Instructions ?Recorded ?Confirmed ?Last Taken ?Type fluticasone propionate 50 1 spray intranasal DAILY 01/17/25 01/17/25 Unknown History mcg/actuation nasal spray,suspension (Flonase Allergy Relief) Exam Height,Weight and Vital Signs: Height 5 ft 8 in Weight 79.6 kg Last Vital Signs Temp 97.7 F 01/23/25 14:35 Pulse 72 01/23/25 14:35 Resp 18 01/23/25 14:35 BP 128/78 01/23/25 14:35 Pulse Ox 100 01/23/25 11:29 O2 Del Method Room Air 01/23/25 11:29 Pertinent Lab Results Pertinent Lab Results: Laboratory Tests 01/17/25 01/17/25 01/17/25 14:22 [id number] 17:00 WBC 6.2 RBC 4.76 Hgb 14.9 Hct 39.8 L MCV 83.6 MCH 31.3 MCHC 37.4 H RDW 13.2 Plt Count 132 L D MPV 9.4 Immature Gran % (Auto) 0.5 H Neut % (Auto) 67.1 Lymph % (Auto) 22.3 [place] % (Auto) 9.6 Eos % (Auto) 0.2 Baso % (Auto) 0.3 Lymph # (Auto) 1.4 [place] # (Auto) 0.6 Eos # (Auto) 0.0 Baso # (Auto) 0.0 Abs Immat Gran (auto) 0.03 Absolute Neuts (auto) 4.1 Absolute Nucleated RBC 0.000 Nucleated RBC % (auto) 0.0 PT INR VBG pH 7.56 H VBG pCO2 28 VBG pO2 220 VBG HCO3 25 VBG O2 Saturation 99.0 VBG Base Excess 4.5 Sodium 121 L Potassium 4.3 Chloride 77 L D Carbon Dioxide 26 Anion Gap 22 H BUN 10 Creatinine 0.64 Estim Creat Clear Calc 109.3 Estimated GFR > 60 Random Glucose 98 Calcium 8.7 Magnesium 1.8 Total Bilirubin 0.6 Direct Bilirubin 0.3 AST 75 H ALT 54 H Alkaline Phosphatase 91 Troponin I High Sens 2.7 Total Protein 6.5 Albumin 3.7 Lipase Vitamin B12 Folate Beta-Hydroxybutyrate Urine Color Yellow Urine Appearance Clear Urine pH 5.5 Ur Specific [place] 1.015 Urine Protein Negative Urine Glucose (UA) Negative Urine Ketones 15 Urine Blood Negative Urine Nitrite Negative Ur Leukocyte Esterase Negative Urine Osmolality 421 Ur Random Sodium < 20.0 Ur Random Potassium 48.2 Ur Random Chloride < 20.0 Stool Occult Blood Urine Opiates Screen Not Detected Ur Buprenorphine Scrn Not Detected Ur Oxycodone Screen Not Detected Urine Methadone Screen Not Detected Urine Fentanyl Screen Not Detected Ur Barbiturates Screen Not Detected Ur Phencyclidine Scrn Not Detected Ur Amphetamines Screen Not Detected U Benzodiazepines Scrn Not Detected Urine Cocaine Screen Not Detected U Marijuana (THC) Screen Not Detected Ethyl Alcohol 285 Blood Type Antibody Screen Crossmatch 01/17/25 01/18/25 01/19/25 17:16 07:21 05:47 WBC 6.0 3.6 L RBC 4.08 L 3.99 L Hgb 12.8 L 12.5 L Hct 34.7 L 34.4 L MCV 85.0 86.2 MCH 31.4 31.3 MCHC 36.9 H 36.3 H RDW 13.2 13.1 Plt Count 123 L 105 L MPV 9.8 9.9 Immature Gran % (Auto) Neut % (Auto) Lymph % (Auto) [place] % (Auto) Eos % (Auto) Baso % (Auto) Lymph # (Auto) [place] # (Auto) Eos # (Auto) Baso # (Auto) Abs Immat Gran (auto) Absolute Neuts (auto) Absolute Nucleated RBC 0.000 0.000 Nucleated RBC % (auto) 0.0 0.0 PT 12.2 INR 1.0 VBG pH VBG pCO2 VBG pO2 VBG HCO3 VBG O2 Saturation VBG Base Excess Sodium 120 L* 124 L Potassium 4.0 3.4 Chloride 79 L 84 L Carbon Dioxide 27 28 Anion Gap 18 15 BUN 12 14 Creatinine 0.75 0.75 Estim Creat Clear Calc 87.4 87.4 Estimated GFR > 60 > 60 Random Glucose 93 105 Calcium 8.4 8.6 Magnesium 1.6 1.7 Total Bilirubin 0.9 Direct Bilirubin 0.4 AST 59 H ALT 41 H Alkaline Phosphatase 79 Troponin I High Sens Total Protein 5.6 L Albumin 3.3 L Lipase 24 Vitamin B12 Folate Beta-Hydroxybutyrate 1.29 H Urine Color Urine Appearance Urine pH Ur Specific [place] Urine Protein Urine Glucose (UA) Urine Ketones Urine Blood Urine Nitrite Ur Leukocyte Esterase Urine Osmolality Ur Random Sodium Ur Random Potassium Ur Random Chloride Stool Occult Blood Urine Opiates Screen Ur Buprenorphine Scrn Ur Oxycodone Screen Urine Methadone Screen Urine Fentanyl Screen Ur Barbiturates Screen Ur Phencyclidine Scrn Ur Amphetamines Screen U Benzodiazepines Scrn Urine Cocaine Screen U Marijuana (THC) Screen Ethyl Alcohol Blood Type Antibody Screen Crossmatch 01/20/25 01/21/25 01/21/25 06:20 07:25 12:51 WBC 4.0 L 3.8 L RBC 4.33 L 4.35 L Hgb 13.6 L 13.3 L Hct 37.8 L 38.8 L MCV 87.3 89.2 MCH 31.4 30.6 MCHC 36.0 34.3 RDW 13.2 13.2 Plt Count 116 L 124 L MPV 9.5 9.4 Immature Gran % (Auto) Neut % (Auto) Lymph % (Auto) [place] % (Auto) Eos % (Auto) Baso % (Auto) Lymph # (Auto) [place] # (Auto) Eos # (Auto) Baso # (Auto) Abs Immat Gran (auto) Absolute Neuts (auto) Absolute Nucleated RBC 0.000 0.000 Nucleated RBC % (auto) 0.0 0.0 PT INR VBG pH VBG pCO2 VBG pO2 VBG HCO3 VBG O2 Saturation VBG Base Excess Sodium 130 L 130 L 130 L Potassium 3.5 3.4 3.7 Chloride 92 L 94 L 97 Carbon Dioxide 28 27 26 Anion Gap 14 12 11 L BUN 12 12 21 H Creatinine 0.67 0.66 0.62 Estim Creat Clear Calc 97.8 99.3 105.7 Estimated GFR > 60 > 60 > 60 Random Glucose 102 112 132 H Calcium 9.2 D 8.8 8.7 Magnesium 1.8 1.7 Total Bilirubin 0.6 Direct Bilirubin 0.2 AST 62 H ALT 49 H Alkaline Phosphatase 78 Troponin I High Sens Total Protein 5.6 L Albumin 3.2 L Lipase Vitamin B12 1165 H Folate 9.3 Beta-Hydroxybutyrate Urine Color Urine Appearance Urine pH Ur Specific [place] Urine Protein Urine Glucose (UA) Urine Ketones Urine Blood Urine Nitrite Ur Leukocyte Esterase Urine Osmolality Ur Random Sodium Ur Random Potassium Ur Random Chloride Stool Occult Blood Urine Opiates Screen Ur Buprenorphine Scrn Ur Oxycodone Screen Urine Methadone Screen Urine Fentanyl Screen Ur Barbiturates Screen Ur Phencyclidine Scrn Ur Amphetamines Screen U Benzodiazepines Scrn Urine Cocaine Screen U Marijuana (THC) Screen Ethyl Alcohol Blood Type Antibody Screen Crossmatch 01/22/25 01/22/25 01/22/25 06:15 09:27 14:06 WBC 5.2 5.3 7.0 RBC 2.80 L D 2.75 L 2.68 L Hgb 8.9 L D 8.5 L 8.6 L Hct 25.7 L D 25.1 L 24.6 L MCV 91.8 91.3 91.8 MCH 31.8 30.9 32.1 MCHC 34.6 33.9 35.0 RDW 13.3 13.6 13.6 Plt Count 147 L 131 L 132 L MPV 9.9 9.5 9.3 L Immature Gran % (Auto) 1.4 H Neut % (Auto) 42.8 L Lymph % (Auto) 36.4 [place] % (Auto) 17.8 H Eos % (Auto) 0.6 Baso % (Auto) 1.0 Lymph # (Auto) 1.9 [place] # (Auto) 0.9 Eos # (Auto) 0.0 Baso # (Auto) 0.1 Abs Immat Gran (auto) 0.07 H Absolute Neuts (auto) 2.2 Absolute Nucleated RBC 0.000 0.000 0.000 Nucleated RBC % (auto) 0.0 0.0 0.0 PT INR VBG pH VBG pCO2 VBG pO2 VBG HCO3 VBG O2 Saturation VBG Base Excess Sodium 135 Potassium 3.8 Chloride 101 Carbon Dioxide 29 Anion Gap 9 L BUN 46 H Creatinine 0.54 Estim Creat Clear Calc 121.3 Estimated GFR > 60 Random Glucose 110 Calcium 8.4 Magnesium Total Bilirubin Direct Bilirubin AST ALT Alkaline Phosphatase Troponin I High Sens Total Protein Albumin Lipase Vitamin B12 Folate Beta-Hydroxybutyrate Urine Color Urine Appearance Urine pH Ur Specific [place] Urine Protein Urine Glucose (UA) Urine Ketones Urine Blood Urine Nitrite Ur Leukocyte Esterase Urine Osmolality Ur Random Sodium Ur Random Potassium Ur Random Chloride Stool Occult Blood Urine Opiates Screen Ur Buprenorphine Scrn Ur Oxycodone Screen Urine Methadone Screen Urine Fentanyl Screen Ur Barbiturates Screen Ur Phencyclidine Scrn Ur Amphetamines Screen U Benzodiazepines Scrn Urine Cocaine Screen U Marijuana (THC) Screen Ethyl Alcohol Blood Type Antibody Screen Crossmatch 01/23/25 01/23/25 01/23/25 06:15 07:40 08:57 WBC 3.9 L RBC 2.45 L Hgb 7.7 L Hct 22.3 L MCV 91.0 MCH 31.4 MCHC 34.5 RDW 14.0 Plt Count 135 L MPV 9.4 Immature Gran % (Auto) 1.3 H Neut % (Auto) 39.1 L Lymph % (Auto) 40.5 H [place] % (Auto) 17.1 H Eos % (Auto) 1.0 Baso % (Auto) 1.0 Lymph # (Auto) 1.6 [place] # (Auto) 0.7 Eos # (Auto) 0.0 Baso # (Auto) 0.0 Abs Immat Gran (auto) 0.05 H Absolute Neuts (auto) 1.5 L Absolute Nucleated RBC 0.000 Nucleated RBC % (auto) 0.0 PT INR VBG pH VBG pCO2 VBG pO2 VBG HCO3 VBG O2 Saturation VBG Base Excess Sodium 137 Potassium 3.4 Chloride 108 Carbon Dioxide 24 Anion Gap 8 L BUN 20 H Creatinine 0.51 Estim Creat Clear Calc 128.5 Estimated GFR > 60 Random Glucose 106 Calcium 8.0 L Magnesium Total Bilirubin Direct Bilirubin AST ALT Alkaline Phosphatase Troponin I High Sens Total Protein Albumin Lipase Vitamin B12 Folate Beta-Hydroxybutyrate Urine Color Urine Appearance Urine pH Ur Specific [place] Urine Protein Urine Glucose (UA) Urine Ketones Urine Blood Urine Nitrite Ur Leukocyte Esterase Urine Osmolality Ur Random Sodium Ur Random Potassium Ur Random Chloride Stool Occult Blood POSITIVE Urine Opiates Screen Ur Buprenorphine Scrn Ur Oxycodone Screen Urine Methadone Screen Urine Fentanyl Screen Ur Barbiturates Screen Ur Phencyclidine Scrn Ur Amphetamines Screen U Benzodiazepines Scrn Urine Cocaine Screen U Marijuana (THC) Screen Ethyl Alcohol Blood Type O Positive Antibody Screen NEGATIVE Crossmatch See Detail Airway Mallampati Class: II TM Dist: <=3cm Neck ROM: Full Heart: ok Lungs: ok Assessment and Plan Assessment Anesthesia Assessment: Anesthesia Plan Discussed and Chart Reviewed Final Anesthetic Review Family History of Problems with Anesthesia: No History of Problems with Anesthesia: No NPO: Yes ASA Class: III Final Preanesthetic Review: No Changes in Pt Med Stat, Meds/Allgs Chart Reviewed, Consent Obtained/Reviewed and Anes Risks/Benef Reviewed Patient Risk: Intermediate Procedure Risk: Intermediate Anesthetic Plan Anesthetic Plan: Agree w/ Assess. and Plan and TIVA Disposition: Standard PACU
--- NOTE | 2025-01-23 15:18 | MHC.CM.PN ---
EMR reviewed and per MD rounds, pt is not medically cleared for discharge at this time, plan will be for pt to discharge to [facility] once medically cleared.
--- NOTE | 2025-01-23 15:47 | HO.PM.IMPN ---
Subjective Subjective Date of Service: 01/23/25 Interval History: seen and evaluated feels little better Na improving to 137 Hb dropped to 7.7 this morning, has melena this morning passing urine , no retention no other events Review of Systems Review of Systems: Yes all other systems are reviewed and are negative Physical Exam Vital Signs: Vital Signs: Last Vital Signs Temp 97.9 F 01/23/25 15:25 Pulse 86 01/23/25 15:25 Resp 20 01/23/25 15:25 BP 135/81 01/23/25 15:25 Pulse Ox 99 01/23/25 15:25 O2 Del Method Room Air 01/23/25 15:25 BMI result Body Mass Index 26.7 Const: Other: Constitutional : interactive, not in distress Cardiovascular : no JVP, no lower extremity edema Respiratory : bilateral chest movement, not in resp distress Gastrointestinal: soft, lax, Non tender Skin : Warm, Dry Neurological : Alert & oriented , No focal deficit Objective Data Active Medications Calcium Carbonate (Calcium Carbonate 750 Mg Tab.Chew) 750 mg PO Q4H PRN PRN Reason: Heartburn Last Admin: 01/22/25 02:13 Dose: 750 mg Documented By: GLENNY Enoxaparin Sodium (Enoxaparin Sodium 40 Mg/0.4 Ml Syringe) 40 mg SUBCUT Q24H [facility] Last Admin: 01/21/25 09:34 Dose: 40 mg Documented By: SYLVESTER Finasteride (Finasteride 5 Mg Tablet) 5 mg PO DAILY [facility] Last Admin: 01/21/25 09:34 Dose: 5 mg Documented By: SYLVESTER Folic Acid (Folic Acid 1 Mg Tablet) 1 mg PO DAILY [facility] Last Admin: 01/23/25 08:50 Dose: 1 mg Documented By: ELAINE Sodium Chloride (Ns) 1,000 mls @ 75 mls/hr IVCONT .[id number] [facility] Last Infusion: 01/23/25 13:46 Dose: Infused Documented By: ELAINE Midodrine (Midodrine Hcl 5 Mg Tablet) 5 mg PO TID [facility] Last Admin: 01/23/25 08:49 Dose: 5 mg Documented By: ELAINE Multivitamins/Vitamin C (Multivitamin Tablet) 1 tab PO DAILY [facility] Last Admin: 01/23/25 08:50 Dose: 1 tab Documented By: ELAINE Ondansetron HCl (Ondansetron Hcl 4 Mg/2 Ml Vial) 4 mg IVPUSH Q6H PRN PRN Reason: Nausea Last Admin: 01/18/25 18:33 Dose: 4 mg Documented By: BOUCHRA Pantoprazole Sodium (Pantoprazole Sodium 40 Mg/10 Ml Vial) 40 mg IVPUSH BID@0630,1630 [facility] Last Admin: 01/23/25 05:58 Dose: 40 mg Documented By: SONU Psyllium Hydrophilic Mucilloid (Psyllium Seed 3.7 Gm Packet) 3.7 gm PO DAILY [facility] Last Admin: 01/23/25 08:50 Dose: 3.7 gm Documented By: ELAINE Sodium Chloride (Sodium Chloride Tab 1 Gm Tablet) 2 gm PO TID [facility] Last Admin: 01/23/25 08:49 Dose: 2 gm Documented By: ELAINE Tamsulosin HCl (Tamsulosin Hcl 0.4 Mg Capsule) 0.4 mg PO DAILY [facility] Last Admin: 01/23/25 08:49 Dose: 0.4 mg Documented By: ELAINE Thiamine HCl (Thiamine Hcl 100 Mg Tablet) 100 mg PO DAILY [facility] Last Admin: 01/23/25 08:49 Dose: 100 mg Documented By: ELAINE Labs 01/23/25 06:15 01/23/25 06:15 Labs: Laboratory Results - last 24 hr 01/23/25 01/23/25 01/23/25 06:15 07:40 08:57 MCV 91.0 MCH 31.4 MCHC 34.5 RDW 14.0 Plt Count 135 L MPV 9.4 Immature Gran % (Auto) 1.3 H Neut % (Auto) 39.1 L Lymph % (Auto) 40.5 H [place] % (Auto) 17.1 H Eos % (Auto) 1.0 Baso % (Auto) 1.0 Lymph # (Auto) 1.6 [place] # (Auto) 0.7 Eos # (Auto) 0.0 Baso # (Auto) 0.0 Abs Immat Gran (auto) 0.05 H Absolute Neuts (auto) 1.5 L Absolute Nucleated RBC 0.000 Nucleated RBC % (auto) 0.0 Anion Gap 8 L Estim Creat Clear Calc 128.5 Estimated GFR > 60 Random Glucose 106 Calcium 8.0 L Stool Occult Blood POSITIVE Blood Type O Positive Antibody Screen NEGATIVE Crossmatch See Detail Assessment and Plan (1) Acute on chronic blood loss anemia: Status: Acute (2) Vomiting: Status: Acute (3) Tachycardia: Status: Acute (4) Cough: Status: Acute (5) Hyponatremia: Status: Acute Plan 69M PMH etoh dependence, AFLD, presented with weakness and vomiting Acute on chronic blood loss anemia Hb dropped from 13 ro 7.7 To transfuse 2 units of blood PAntoprazole bid DX Lovenox GI consult, to do EGD this afternoon monitor H&H and transfuse if drops below 8 Weakness due to acute hyponatremia Multifactorial; solute deficiency, SIADH Improving slowly to 137 Fluid restrict, salt tablets Monitor BMP avoid over-correction improving at acceptable rate PT following Tahcycardia Sinus rhythm likely related to acute blood loss IVF and blood transfusion if needed monitor LE edema 3rd spacing, resolved pancytopenia unspecified likely due to etoh liver Nausea and vomiting PPI, Zofran Urinary retention no recurrence On Flomax and Proscar voiding trial successful Alcohol dependence Currently not withdrawal, monitor CIWA Alcoholic fatty liver disease Abstinence recommended continue thiamine, mvi, folic acid weakness PT recommending str DVT prophylaxis-Lovenox Full Code reason for continued hospitalization: hyponatremia improving, Acute blood loss anemia w GIB pending EGD and GI follow up Quality Stroke Does the patient have a stroke diagnosis?: No VTE Prior VTE?: No VTE Risk Level:: Medical - moderate - high VTE Device Contraindication: Treatment Not Indicated VTE Drug Contraindication: N/A - Med Ordered
--- NOTE | 2025-01-23 17:27 | P.BOP_ITS ---
Brief Operative Note Date of Service: 01/23/25 Pre-op diagnosis: UGI Bleed Post-op diagnosis: other (Erosive esophagitis, Hiatal hernia, Portal gastropathy, Gastritis, Duodenitis) Procedure: EGD with biopsies Surgeon: Gene Portillo MD Anesthesia: MAC Was an [employer] used for this Procedure?: No Estimated blood loss (mL): 2.0 Pathology: other (A. Gastric antrum B. Esophagus 26 to 36cm) Condition: stable Disposition: PACU
--- NOTE | 2025-01-23 17:36 | P.EN_ITS ---
Event Note Date of Service: 01/23/25 Event Note: GI-EGD-Full note dictated Findings: 1. Erosive esophagitis from 26 to 36cm. No active bleeding. No varices. Bx taken in esophagus-R/O Rodriguez's, R/O viral esophagitis. 2. Small hiatal hernia 3. Portal gastropathy/Gastritis. Biopsies taken in the antrum. R/O H.pylori. No varices 4. Duodenitis Plan: 40mg omeprazole BID, F/U labs, advance diet, avoid all blood thinners and NSAIDs. He should follow up in the office to arrange a follow up EGD after a couple of months to assess for healing.I called his brother in [place] and left a message regarding all of this, Thanks Time Spent With Patient Time: Total time managing care of this patient today ____ minutes.
[2025-01-23] MEDS: 0.9 % Sodium Chloride 1,000 ML 75 ML IVCONT (17:50)
[2025-01-23] MEDS: Omeprazole 40 MG CAPSULE.DR PO (17:50)
[2025-01-24] VITALS: BP 136/74; PULSE 84; RESP 16; TEMP 36.2; O2SAT 97
--- NOTE | 2025-01-24 01:06 | OP_ITS ---
DATE OF SERVICE: 01/23/2025 SURGEON: Gene Portillo MD INDICATIONS: The patient presents for evaluation of GI bleeding. Full consent has been obtained from him for this, including risks of bleeding and perforation. PREOPERATIVE DIAGNOSIS: Gastrointestinal bleeding. POSTOPERATIVE DIAGNOSIS: PROCEDURE PERFORMED: Esophagogastroduodenoscopy with biopsies. ESTIMATED BLOOD LOSS: COMPLICATIONS: ANESTHESIA: Monitored anesthesia care. ASSISTANTS: SPECIMENS: POSTOPERATIVE DIAGNOSES: Gastrointestinal bleeding, erosive esophagitis, hiatal hernia, portal gastropathy and/or gastritis, duodenitis. DESCRIPTION OF PROCEDURE: The patient was placed in the left lateral decubitus position. The Olympus video gastroscope was passed in the posterior oropharynx and upper esophagus under direct vision. The scope was passed slowly into the distal esophagus. The gastroesophageal junction appeared at 36 cm. Extending from 36 cm to 26 cm was a circumferential segment of the esophagus with ulcerations and friability. 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 There was no evidence of any active bleeding or varices. The scope entered the stomach. There was a small hiatal hernia. The scope entered the stomach and was advanced to the pylorus. The duodenum was cannulated to the descending portion. The duodenum including the bulb appeared normal other than some duodenitis in the duodenal bulb. There was no ulceration. There was no blood nor coffee-ground material in the duodenum. Of note, the scope was advanced as far as it would go, which was just past the major papilla. The scope was withdrawn back to the stomach. The gastric antrum and body had changes with edema, probable gastropathy, and some erythema. There was good peristalsis. Biopsies were obtained. The scope was retroflexed visualizing the proximal stomach carefully, which appeared also consistent with a portal gastropathy but without varices or bleeding. The scope was straightened and withdrawn back to the esophagus. Multiple biopsies were obtained between 26 and 36 cm in the esophagus to inspect for any underlying esophagitis such as a viral induced esophagitis. I did not appreciate any varices nor other abnormalities. The scope was withdrawn from the patient. He tolerated the procedure well and was returned to the recovery area in stable condition. IMPRESSION: 1. Erosive esophagitis, rule out Rodriguez esophagus. 2. Hiatal hernia. 3. Gastritis and/or gastropathy, rule out Helicobacter pylori. 4. Duodenitis. PLAN: The patient will have his diet advanced given today's findings without any sign of active bleeding. He will be switched to omeprazole 40 mg b.i.d. rather than the IV PPI at this time. He will have followup laboratories tomorrow. At this point, I do not think any further investigation is required. I would recommend a followup upper endoscopy in the next 2 to 3 months once healing has occurred to fully assess for any Rodriguez esophagus. He should continue to avoid all blood thinners and NSAIDs. MD TENA Arreola/DUGLAS / [phone]
[2025-01-24 03:04] VITALS: BP 136/86; PULSE 93; RESP 16; TEMP 36.2; O2SAT 98
[2025-01-24] MEDS: 0.9 % Sodium Chloride 1,000 ML 75 ML IVCONT (05:06)
[2025-01-24] MEDS: Omeprazole 40 MG CAPSULE.DR PO (05:07)
[2025-01-24 07:33] LABS: MANUAL DIFF FLAG NO
[2025-01-24 07:40] LABS: Basophils Percent Auto 1.2 % (0-2); Eosinophils Percent Auto 0.9 % (0-4); Hematocrit 27.5 % (42.0-52.0); Hemoglobin 9.7 g/dl (14.0-18.0); Imm Gran Abs Auto 0.04 X10*3/uL (0.00-0.03); Imm Gran Pct Auto 1.2 % (0.0-0.4); Lymphocytes Absolute Auto 1.3 X10*3/uL (1.2-4.9); Lymphocytes Percent Auto 40.2 % (20-40); Mean Corpuscular HGB Conc 35.3 g/dl (31.0-36.0); Mean Corpuscular Hemoglobin 31.2 pg (27.0-33.0); Mean Corpuscular Volume 88.4 fL (80.0-98.0); Mean Platelet Volume 9.4 fL (9.4-12.4); Monocytes Absolute Auto 0.6 X10*3/uL (0.1-1.2); Monocytes Percent Auto 17.1 % (2-11); Neutrophils Absolute Auto 1.3 x10*3/uL (2.0-8.3); Neutrophils Percent Auto 39.4 % (45-73); Platelet Count 147 X10*3/uL (160-400); Red Blood Count 3.11 X10*6/uL (4.60-5.80); White Blood Count 3.2 X10*3/uL (4.8-10.8)
[2025-01-24 07:42] VITALS: BP 121/73; PULSE 96; RESP 18; TEMP 36.3; O2SAT 100
[2025-01-24 08:09] LABS: Anion Gap 9 (12-20); Blood Urea Nitrogen 9 mg/dL (9-16); Carbon Dioxide 25 mmol/L (22-29); Chloride 107 mmol/L (96-108); Creatinine Clr Calc Pharmacy 133.7; Estimated Glomerular Filt Rate > 60; Glucose Random 110 mg/dL (60-115); Potassium 3.2 mmol/L (3.3-5.1); Sodium 138 mmol/L (135-145)
[2025-01-24] MEDS: Finasteride 5 MG TABLET PO (08:40)
[2025-01-24] MEDS: Tamsulosin HCL 0.4 MG CAPSULE PO (08:40)
[2025-01-24] MEDS: Midodrine HCl 5 MG TABLET PO (08:40)
[2025-01-24] MEDS: Psyllium seed 3.7 GM PACKET PO (08:40)
[2025-01-24] MEDS: Sodium Chloride Tab 1 GM TABLET 2 GM PO (08:41)
[2025-01-24] MEDS: Multivitamin TABLET 1 TAB PO (08:41)
[2025-01-24] MEDS: Folic Acid 1 MG TABLET PO (08:41)
[2025-01-24] MEDS: Thiamine HCL 100 MG TABLET PO (08:43)
--- NOTE | 2025-01-24 09:27 | MHC.CM.PN ---
Per MD, Patient is medically cleared for dc to SNF/STR today. Patient will dc to [facility] today at 1PM, via [facility]. CM addressed IMM with Patient at bedside and provided him with the original and a copy was placed on the chart. Per Patient, he will infirm his family himself, of the dc plan.
[2025-01-24 11:19] VITALS: BP 140/82; PULSE 90; RESP 18; TEMP 36.7; O2SAT 98
--- NOTE | 2025-01-24 12:09 | PM.DS ---
DS: Providers Provider Date of Service: 01/24/25 Date of admission: 01/17/25 17:30 Date of discharge: 01/24/25 Primary care physician: RISSA Pink Consults: 01/18/25 00:30 Addiction Medicine Provider Routine Consulting Provider: Addiction Covering Reason for consultation: FREDERICK 01/18/25 01:41 Consult to Wound Care Routine Reason for consultation: open presure injury to coccyx. 01/22/25 11:00 Consult to Gastroenterology Routine Consulting Provider: Soy Ordaz Reason for consultation: Acute on chronic blood loss anemia, rectal bleed DS: Diagnosis Discharge Diagnosis (1) Acute on chronic blood loss anemia: Status: Acute (2) Vomiting: Status: Acute (3) Tachycardia: Status: Acute (4) Cough: Status: Acute (5) Hyponatremia: Status: Acute (6) Alcohol intoxication: Status: Acute (7) Alcohol use disorder: Status: Acute (8) Pancytopenia: Status: Acute (9) Acute retention of urine: Status: Acute (10) Erosive esophagitis: Status: Acute (11) Physical deconditioning: Status: Acute DS: Summary Hospital Course Hospital Course: Admission note HPI 69M PMH etoh dependence, AFLD, presented with weakness and vomiting. Patient states he has been feeling unwell for the past 2 weeks. He states his friend told him to come to the ED because she was concerned about him. He has been unable to tolerate anything p.o., has been vomiting for the past 2 days. Last drink of wine was day prior to presentation. Denies any withdrawal symptoms. Denies abdominal pain, fever, chills, chest pain, shortness of breath. In ED noted to have a sodium of 121 and chloride of 77. Hospital course # Acute on chronic blood loss anemia secondary to Erosive esophagitis. Avoid NSAIDS and blood thinners. To follow with GI office w Dr Portillo to arrange repeat EGD in few months. Hb dropped from 13 ro 7.7. requiring transfusion of 2 units of blood with good response as he recovered to 9.7. Started on IV PAntoprazole bid. Evaluated by GI who did EGD showing Erosive esophagitis and portal gastropathy with gastritis. recommended bid Omeprazole for now. To be followed as outpatient. # Weakness due to acute hyponatremia. Multifactorial; solute deficiency, SIADH. Improved slowly to 137 with Fluid restrict, salt tablets. To be discharged on Salt tablets and followed as outpatient. # pancytopenia unspecified, likely due to etoh liver # Urinary retention, Started on Flomax and Proscar. voiding trial successful # Alcohol dependence. Did not develpe withdrawal, monitored on CIWA, Advised total abstinence. # Alcoholic fatty liver disease, Abstinence recommended. To discharge on thiamine, mvi, folic acid # Physical deconditioning; PT recommending STR. Discharge plan Take Salt tablets two times a day to keep Sodium level close to normal Take Finasteride and Tamsulosin for urine retention Omeprazole twice a day for esophagitis Thiamine, folic acid and Multivitamin daily We advise you complete abstinence from Alcohol follow with GI office w Dr Portillo to arrange repeat EGD in few months. The patient will likely need less than 30 days of SNF stay. Time Attestation Discharge Coordination Time (in mins): 46 Quality: Safe Use of Opioids Does Pt have an Active Cancer Diagnosis on the Problem List?: No Quality: Stroke Does the patient have a stroke diagnosis?: No Physical Exam Vital Signs: Vital Signs: Last Vital Signs Temp 98.0 F 01/24/25 11:19 Pulse 90 01/24/25 11:19 Resp 18 01/24/25 11:19 BP 140/82 H 01/24/25 11:19 Pulse Ox 98 01/24/25 11:19 O2 Del Method Room Air 01/24/25 11:19 BMI result Body Mass Index 26.7 Const: Other: Constitutional : interactive, not in distress Cardiovascular : no JVP, no lower extremity edema Respiratory : bilateral chest movement, not in resp distress Gastrointestinal: soft, lax, Non tender Skin : Warm, Dry Neurological : Alert & oriented , No focal deficit DS: Data Data Completed and Pending Completed studies during hospitalization [Text1]: Procedures Detoxification Services for Substance Abuse Treatment (01/25/21) Pending studies at discharge: Pending at discharge 01/23/25 16:46 Surgical [PTH] Routine Labs on day of discharge: Laboratory Results - last 24 hr 01/23/25 01/24/25 08:57 06:29 WBC 3.2 L RBC 3.11 L D Hgb 9.7 L D Hct 27.5 L D MCV 88.4 MCH 31.2 MCHC 35.3 RDW 15.0 Plt Count 147 L MPV 9.4 Immature Gran % (Auto) 1.2 H Neut % (Auto) 39.4 L Lymph % (Auto) 40.2 H [place] % (Auto) 17.1 H Eos % (Auto) 0.9 Baso % (Auto) 1.2 Lymph # (Auto) 1.3 [place] # (Auto) 0.6 Eos # (Auto) 0.0 Baso # (Auto) 0.0 Abs Immat Gran (auto) 0.04 H Absolute Neuts (auto) 1.3 L Absolute Nucleated RBC 0.000 Nucleated RBC % (auto) 0.0 Sodium 138 Potassium 3.2 L Chloride 107 Carbon Dioxide 25 Anion Gap 9 L BUN 9 Creatinine 0.49 L Estim Creat Clear Calc 133.7 Estimated GFR > 60 Random Glucose 110 Calcium 8.0 L Blood Type O Positive Antibody Screen NEGATIVE Crossmatch See Detail Discharge Plan Discharge Anticipated Discharge Date/Time: 01/24/25 12:01 Patient Disposition: Xfer SNF Discharge Diagnosis: Blood loss anemia Esophagitis Alcohol abuse Referrals: [facility] [Outside] - 1 Week Oral Yanes FNP- [Primary Care Provider] - 1 Week Justino Ordoñez MD [Physician] - 1 Week (fecal incontinence, etoh steatohepatitis) Discharge Medications: New omeprazole 40 mg Capsule,Delayed Release(Dr/Ec) 40 mg PO BID@0630,1630 Qty: 180 0RF tamsulosin 0.4 mg Capsule 0.4 mg PO DAILY Qty: 90 0RF finasteride 5 mg Tablet 5 mg PO DAILY Qty: 90 0RF sodium chloride 1,000 mg Tablet,Soluble 1,000 mg PO BID Qty: 180 0RF folic acid 1 mg Tablet 1 mg PO DAILY Qty: 90 0RF thiamine mononitrate (vit B1) 100 mg Tablet 100 mg PO DAILY Qty: 90 0RF multivitamin [Daily-Víctor] Tablet 1 tab PO DAILY Qty: 90 0RF Continued fluticasone propionate [Flonase Allergy Relief] 50 mcg/actuation spray,suspension 1 spray intranasal DAILY Rx Instructions: administer into each nostril Discharge Orders: Discharge Order (Routine); Ordered 01/24/25 Ordered By: Vannesa Maynard Diet: Advance to usual diet Activity on Discharge: As tolerated Stand Alone Forms: Patient Portal Discharge page Print Language: Belgian Activity Restrictions/Additional Instructions: FI (Fecal Incontinence) recommend GI specialist to ensure assessment and possible treatments for FI (Fecal Incontinence) - discussion with your provider to include interventions he may be eligible for such as electrical stimulation, Pelvic floor muscle exercises, biofeedback and bulk forming agents such as soluble fiber (Metamucil). First line defense for FI is stool consistency management:? this can be achieved by limiting alcohol intake, eating regularly balanced diets rich in fiber, and not skipping meals and adding Soluble fiber supplement such as Metamucil.? Soluble fiber is best introduced slowly and working your way up to full dose - this is available over the counter.? Consider B-Sure pads designed to fit between buttock and wick moisture away from skin. Advised he may use female menstrual pad to absorb fluid and wick away from skin however these should be changed often throughout the day once soiled. Sacrum - Cleanse with soap and water in shower, pat dry. ?Apply thin layer of Triad to wound bed. Do not remove all of paste between applications as this may cause further skin damage.? Cover with dressing.? Change daily.? Once healed if incontinence continued be sure to use barrier cream daily to area.? Such A&D ointment and or clear barrier cream.? Care Plan Goals: Take Salt tablets two times a day to keep Sodium level close to normal Take Finasteride and Tamsulosin for urine retention Omeprazole twice a day for esophagitis Thiamine, folic acid and Multivitamin daily We advise you complete abstinence from Alcohol Health Concerns: GI bleed with blood loss anemia Urine retention Low sodium level Alcohol abuse Plan of Treatment: Medications as above Assessment: as above
--- NOTE | 2025-01-25 19:11 | HO.POSTANES ---
Post Anesthesia Evaluation Post Anesthesia Evaluation Date of Service: 01/25/25 Anesthesia: Monitored Mental Status: Awake Pain Control: Satisfactory Nausea/Vomiting: None Hydration: Adequate Anesthesia-Related Issues: No Anes. Related Issues
== END 2025-01-24 13:43 | disposition skilled nursing facility (03) | DRG 381 ==
LOC: HO.ED 17:14 → HO.EDOVER 17:53 → HO.IMC 23:04
PROVIDERS: Internal Medicine; Registered Nurse Emergency; Admitting Provider Internal Medicine; Emergency Provider Emergency Medicine; PCP Nurse Practitioner Family; Visit Provider Student in an Organized Health Care Education/Training Program
PROC: 0DB58ZX Excision of Esophagus, Via Natural or Artificial Opening Endoscopic, Diagnostic (ICD-10-PCS; principal; 2025-01-23 16:00)
DX: K22.11 Ulcer of esophagus with bleeding (principal); D61.818 Other pancytopenia; D62 Acute posthemorrhagic anemia; E22.2 Syndrome of inappropriate secretion of antidiuretic hormone; K76.6 Portal hypertension; K22.70 Barrett's esophagus without dysplasia; K29.81 Duodenitis with bleeding; K44.9 Diaphragmatic hernia without obstruction or gangrene; K70.0 Alcoholic fatty liver; R33.9 Retention of urine, unspecified; Y90.8 Blood alcohol level of 240 mg/100 ml or more; K31.89 Other diseases of stomach and duodenum; K29.71 Gastritis, unspecified, with bleeding; F10.20 Alcohol dependence, uncomplicated; R53.81 Other malaise; Z79.51 Long term (current) use of inhaled steroids; Z79.899 Other long term (current) drug therapy
CPT/HCPCS: 36415; 71045; 74176; 80048; 80053; 80076; 80307; 81003; 82010; 82248; 82272; 82436; 82607; 82746; 82803; 83690; 83735; 83935; 84133; 84300; 84484; 85025; 85027; 85610; 86850; 86900; 86901; 86923; 88305; 88313; 88341; 88342; 93005; 93970; 97110; 97112; 97116; 97162; 97530; 99285; J0171; J1650; J2003; J2405; J2470; J2704; J3010; P9016; P9047; S9485

== ENCOUNTER → 2025-01-17 12:37 | Outpatient (BNV) | payer MEDICARE, SELFPAY | PROVIDERS: Admitting Provider Internal Medicine; Emergency Provider Emergency Medicine; PCP Nurse Practitioner Family; Visit Provider Internal Medicine | DX: R94.31 Abnormal electrocardiogram [ECG] [EKG] (principal); R53.1 Weakness | CPT/HCPCS: 93010 ==

== ENCOUNTER → 2025-01-17 13:15 | Outpatient (BNV) | payer MEDICARE, SELFPAY | PROVIDERS: Emergency Provider Emergency Medicine; PCP Nurse Practitioner Family; Visit Provider Internal Medicine | DX: E87.1 Hypo-osmolality and hyponatremia (principal); F10.90 Alcohol use, unspecified, uncomplicated | CPT/HCPCS: 99223; 99232 ==

== ENCOUNTER 2025-01-17 17:30 | Outpatient (BNV) | payer MEDICARE, SELFPAY | END 2025-01-22 08:50 | PROVIDERS: Admitting Provider Internal Medicine; Emergency Provider Emergency Medicine; PCP Nurse Practitioner Family; Visit Provider Radiology Diagnostic Radiology | DX: J98.11 Atelectasis (principal); R00.0 Tachycardia, unspecified | CPT/HCPCS: 71045 ==

== ENCOUNTER 2025-01-17 17:30 | Outpatient (BNV) | payer MEDICARE, SELFPAY | END 2025-01-17 17:59 | PROVIDERS: Admitting Provider Internal Medicine; Emergency Provider Emergency Medicine; PCP Nurse Practitioner Family; Visit Provider Radiology Diagnostic Radiology | DX: N32.89 Other specified disorders of bladder (principal); K56.41 Fecal impaction; K76.0 Fatty (change of) liver, not elsewhere classified | CPT/HCPCS: 74176 ==

== ENCOUNTER 2025-01-17 17:30 | Outpatient (BNV) | payer MEDICARE, SELFPAY | END 2025-01-18 09:49 | PROVIDERS: Admitting Provider Internal Medicine; Emergency Provider Emergency Medicine; PCP Nurse Practitioner Family; Visit Provider Radiology Diagnostic Radiology | DX: J98.09 Other diseases of bronchus, not elsewhere classified (principal) | CPT/HCPCS: 71045; 93970 ==

== ENCOUNTER → 2025-01-17 17:30 | Outpatient (BNV) | payer MEDICARE, SELFPAY | PROVIDERS: Admitting Provider Internal Medicine; Emergency Provider Emergency Medicine; PCP Nurse Practitioner Family; Visit Provider Nurse Practitioner Psychiatric/Mental Health | DX: F10.90 Alcohol use, unspecified, uncomplicated (principal) | CPT/HCPCS: 99221 ==

== ENCOUNTER 2025-01-29 08:57 | Outpatient (AMB) | payer MEDICARE, SELFPAY ==
[2025-01-29 09:02] VITALS: BP 150/98; PULSE 81; O2SAT 96; BMI 26.5
--- NOTE | 2025-01-29 09:02 | MHC.PC.OV ---
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: No Allergies amoxicillin [AMOXICILLIN] Allergy (Unknown, Verified 01/29/25 09:02) UNKNOWN, nausea and vomiting penicillin V Allergy (Unknown, Verified 01/29/25 09:02) rash Penicillins [PENICILLINS] Allergy (Unknown, Verified 01/29/25 09:02) UNKNOWN Erythromycin Allergy (Unknown, Uncoded 01/17/25 12:29) Rash Tobacco use date assessed: 01/29/25 Fall risk assessment: No Falls in past year Last assessed Fall Risk: 01/29/25 Dental Screening Dental Screen Date: 01/29/25 Did you have a dental visit in the last 12 months?: Yes Did you have a dental problem in the last 6 months where you did not have access to dental care?: No Was dental information given to patient?: Patient has dentist HPI HDF ~ Post hospital discharge FU HPI Details Chief Complaint The patient presents for follow-up after ER visit for weakness and electrolyte imbalance. History of Present Illness The patient is a 69-year-old male presenting for a follow-up after an ER this visit due to episodes of weakness and vomiting. Two weeks prior to the ER visit, he was in good health, but then began vomiting for two consecutive days. His last alcoholic beverage, wine, was consumed the day before his ER visit. At the ER, he was diagnosed with hyponatremia, having a sodium level of 121 mmol/L, and it was treated effectively with fluid administration and sodium tablets. His medical history reveals chronic blood loss due to esophagitis, which had previously required transfusions. Additionally, the patient has a documented history of alcoholic liver disease related to his pattern of alcohol use. He has reported attending rehabilitation therapy, resulting in cessation of alcohol intake. Patient did have a good experience with a social economist at rehab, that brought up a lot of past trauma that could have contributed to his drinking, patient seems to be more settled with his previous history of trauma. He denies any current vomiting, blood and stool, diarrhea, dark stools, fatigue, weakness, chest pain, shortness of breath. He will be following him up with his gastro provider in 2 months. Labs were ordered. HTN: most likely related to a anxiety component (White coat syndrome) Social History - Alcohol use: History of alcohol use disorder, currently abstaining. - Rehabilitation: Attended therapy for alcohol use, reported beneficial outcomes. - Family: Improved relationships with family members post-rehabilitation. Health Maintenance - Diet and Nutrition: Discussed cessation of alcohol as part of disease management. - Avoidance of Alcohol: Determined to maintain sobriety to prevent further liver damage. Review of Systems - Gastrointestinal: Denies diarrhea, constipation, dark stools, vomiting, or nausea. - Neurological: Denies dizziness or fatigue. - Cardiovascular: Denies chest pain. Physical Exam General: Cooperative, healthy appearing, comfortable, no acute distress and well developed Orientation: Patient oriented x3 Limitations: No limitations Head: Normal to inspection Ears: Hearing grossly normal bilaterally Nose: Normal external nose present Face and sinus: Normal facial exam Eyes: Appearance normal, both eyes and all related structures Neck: Normal visual inspection and Yes full ROM Respiratory: Normal respiratory effort and able to speak in complete sentences. Clear to auscultation bilaterally Cardiovascular: Regular rate and rhythm. Normal S1 and S2 GI: Abdominal tenderness on palpation Skin: No rashes or lesions noted Neuro: Patient oriented x3 Extremities: Normal to inspection Results - Labs: Sodium level recorded at 121 mmol/L at the ER visit. Plan Following his recent ER visit due to hyponatremia, the patient's condition was discussed with a focus on maintaining electrolyte balance through fluid regulation and sodium intake. His abstinence from alcohol remains pivotal given his history of alcoholic liver disease; discussions included the importance of ongoing sobriety which has been reinforced through recent rehabilitation therapy. The patient's medication regimen will be continued, with a follow-up appointment with his business applications manager, Dr. Portillo, already scheduled to further evaluate his liver health. Routine lab work will be revisited in four months to track his progress and manage any ongoing issues. Discussion Notes In our conversation, I reviewed the patient's recent admission to the emergency room for hyponatremia and addressed his management plan moving forward. We discussed the significance of avoiding alcohol to manage his alcoholic liver disease. The effects of the fluid and sodium therapy were explained, and he was informed that his condition had improved since his ER visit. He was advised to adhere strictly to dietary and lifestyle changes to mitigate further risk. I scheduled follow-up labs in four months and instructed him on the importance of regular monitoring. We also discussed his ongoing engagement with his business applications manager for continued care of his esophagitis and liver condition. Patient Instructions - Continue abstaining from alcohol. - Follow dietary guidelines to manage your liver health. - Schedule and attend your follow-up appointment with Dr. Portillo. - Return for lab tests in four months or sooner if symptoms recur. - Monitor your symptoms and seek medical attention if weakness or vomiting returns. [facility] Medical History Barretts esophagus Gastropathy Foot infection Pneumonia Hemorrhoids Alcohol abuse Acute hyponatremia GERD (gastroesophageal reflux disease) Asthma Surgical History Hx of tonsillectomy H/O colonoscopy Social History Household Members: None Housing: House Do you presently have visiting nurse or other home services: No Alcohol intake: current Alcohol intake frequency: former alcohol drinker Alcohol type: wine Comment: for impulsivity - camera applied - pt agreeable, aware:right to refuse Patient Tobacco Use Status: Never used Tobacco e-Cigarette/Vaping Use: Never Used Second Hand Smoke Exposure: No Advance Directives Date on File: 01/26/21 service: No Current occupational status: employed Current occupational exposures/hazards: No Cognitive needs: No Hearing needs: No Vision needs: No Questionnaire PHQ-9 Over the last 2 weeks, how often have you been bothered by any of the following problems? 1. Little interest or pleasure in doing things: not at all 2. Feeling down, depressed, or hopeless: not at all 3. Trouble falling or staying asleep, or sleeping too much: several days 4. Feeling tired or having little energy: not at all 5. Poor appetite or overeating: not at all 6. Feeling bad about yourself - or that you are a failure or have let yourself or your family down: not at all 7. Trouble concentrating on things, such as reading the newspaper or watching television: not at all 8. Moving or speaking so slowly that other people could have noticed. Or the opposite - being so fidgety or restless that you have been moving around a lot more than usual: not at all 9. Thoughts that you would be better off or of hurting yourself in some way: not at all Total score: 1 Depression Screening Interpretation: Negative Depression Screening Done: Yes 75355 - PHQ-9 Billing: Yes Source: Developed by Drs. Gene Bentley, Jayla Real, Duane Tyson and colleagues, with an educational henry from [employer]. Thrive Questionnaire Date Thrive assessed: 01/29/25 I am a: Patient What is your living situation today?: I have a steady place to live Within the past 12 months, did the food you bought not last and you didn't have the money to get more?: Never true Within the past 12 months, did you worry whether your food would run out before you got money to buy more?: Never true Do you have trouble paying for medicines?: No Do you have trouble getting transportation to medical appointments?: No Do you have trouble paying your heating and electricity bill?: No Do you have trouble taking care of your child, family member or friend?: No Do you have trouble with day-to-day activities such as bathing, preparing meals, shopping, managing finances, etc.?: No Are you currently unemployed and looking for a job?: No Are you interested in more education?: No Please select the resources that you would like help with: None Currently or been in a relationship where the following occur: No concerns reported THRIVE Score: 0 AUDIT C Alcohol Use Questionnaire (AUDIT-C) 1. How often do you have a drink containing alcohol?: Never 3. How often do you have six or more drinks on one occasion?: Never Total Score: 0 Score Reviewed/Action Taken: Yes KATRIN-7 AMB Questionnaire KATRIN-7 Date KATRIN - 7 assessed: 01/29/25 Feeling nervous, anxious, or on edge: 0 = Not at all Not being able to stop or control worryin = Not at all Worrying too much about different things: 0 = Not at all Trouble relaxin = Not at all Being so restless that it is hard to sit still: 0 = Not at all Becoming easily annoyed or irritable: 0 = Not at all Feeling afraid as if something awful might happen: 0 = Not at all Total KATRIN-7 score (0-4 normal; 5-9 mild; 10-14 moderate; 15-21 severe): 0 Source: Developed by Drs. Gene Bentley, Jayla Real, Duane Tyson and colleagues, with an educational henry from [employer]. KATRIN-7 Assessment Billing KATRIN-7 Assessment Tool: KATRIN-7 Assessment 00576 Physical exam (Primary Care) Vital Signs: Last Vital Signs Pulse 81 01/29/25 09:02 BP 150/98 H 01/29/25 09:02 Pulse Ox 96 01/29/25 09:02 Oxygen Delivery Method Room Air 01/29/25 09:02 BMI result Body Mass Index 26.5 Tobacco/Smoking Status: Tobacco use Status Tobacco use date assessed 01/29/25 01/29/25 09:03 Patient Tobacco Use Status Never used Tobacco 01/29/25 09:03 e-Cigarette/Vaping Use Never Used 01/29/25 09:03 PHQ-9: PHQ-9 Score PHQ-9: Total score 1 01/29/25 09:03 Depression Screening Interpretation: Negative Thrive Assessment: Date of Thrive Assessment Date Thrive assessed 01/29/25 01/29/25 09:03 Currently or been in a relationship where the following occur: No concerns reported Coding Level of Care Code Est Pt Level 4 (63194) Diagnoses Alcohol use disorder F10.90 HTN (hypertension) I10 Alcohol intoxication F10.929 Acute on chronic blood loss anemia D62 Erosive esophagitis K22.10 Additional Codes KATRIN-7 Assessment Billing - KATRIN-7 Assessment Tool: KATRIN-7 Assessment 46410 ([id number]) PHQ-9 - 02835 - PHQ-9 Billing: Yes ([id number]) Assessment & Plan Assessment & Plan (1) Alcohol use disorder: Category: Medical (2) HTN (hypertension): Code(s): I10 - Essential (primary) hypertension Category: Medical (3) Alcohol intoxication: Code(s): F10.929 - Alcohol use, unspecified with intoxication, unspecified Category: Medical (4) Acute on chronic blood loss anemia: Code(s): D62 - Acute posthemorrhagic anemia Category: Medical (5) Erosive esophagitis: Code(s): K22.10 - Ulcer of esophagus without bleeding Category: Medical Plan . Orders: Orders Comprehensive [place]. Panel Fast Today D62 - Acute posthemorrhagic anemia, F10.929 - Alcohol use, unspecified with intoxication, unspecified, I10 - Essential (primary) hypertension, K22.10 - Ulcer of esophagus without bleeding TSH reflex Free T4 Today D62 - Acute posthemorrhagic anemia, F10.929 - Alcohol use, unspecified with intoxication, unspecified, I10 - Essential (primary) hypertension, K22.10 - Ulcer of esophagus without bleeding UA CC w/rflx Micro + Cult Today D62 - Acute posthemorrhagic anemia, F10.929 - Alcohol use, unspecified with intoxication, unspecified, I10 - Essential (primary) hypertension, K22.10 - Ulcer of esophagus without bleeding Complete Blood Count Auto Diff Today D62 - Acute posthemorrhagic anemia, F10.929 - Alcohol use, unspecified with intoxication, unspecified, I10 - Essential (primary) hypertension, K22.10 - Ulcer of esophagus without bleeding Lipid Panel Today D62 - Acute posthemorrhagic anemia, F10.929 - Alcohol use, unspecified with intoxication, unspecified, I10 - Essential (primary) hypertension, K22.10 - Ulcer of esophagus without bleeding
--- OUTSIDE RECORDS SUMMARY | 2025-01-29 09:22 | XMS_ITS | Clinical Summary ---
Author Organization [address] [facility] Address [address] [place] [address] Phone Care Team Providers Care Mold Dumper Name Role Phone Jesús German MD Primary Care Provider [phone]- [phone] Encounters Date Type Department Care Team Description 01/27/2025 Lab Requisition [facility] - Main Lab [address] [facility] [place] [address] Jesús German MD Anemia, unspecified from Last 3 Months Social History Tobacco Use Types Packs/Day Years Used Date Smoking Tobacco: Never Assessed Sex and Gender Information Value Date Recorded Sex Assigned at Not on file Legal Sex Male 9:15 AM EDT Gender Identity Not on file Sexual Orientation Not on file Plan of Treatment Health Maintenance Due Date Last Done Comments DTaP,Tdap,and Td Vaccines (1 - Tdap) 1972 Pneumococcal Vaccine: 50+ Ye ars (1 of 1 - PCV) 2003 Zoster Vaccines (1 of 2) 2003 COVID-19 Vaccine ( - 2023-2 5 season) 2024 Abdominal Aortic Aneurysm (A AA) Screen 01/27/2025 Cholesterol Screening (Lipid Panel) 01/27/2025 Colorectal Cancer Screening: Colonoscopy 01/27/2025 Depression Screening 01/27/2025 Falls Risk Assessment 01/27/2025 Hepatitis C Screening 01/27/2025 Medicare Annual Wellness Visit 01/27/2025 Social Influencers of Health Screening 01/27/2025 Influenza Vaccine (Season Ended) 2025 RSV Immunization Adult Patie nts (1 - 1-dose 75+ series) 2028 HIB Vaccines Aged Out No longer eligi ble based on patient's age to complete this topic HPV Vaccines Aged Out No longer eligi ble based on patient's age to complete this topic Hepatitis A Vaccines Aged Out No long er eligible based on patient's age to complete this topic Hepatitis B Vaccines Aged Out No long er eligible based on patient's age to complete this topic IPV Vaccines Aged Out No longer eligi ble based on patient's age to complete this topic MMR Vaccines Aged Out No longer eligi ble based on patient's age to complete this topic Meningococcal ACWY Vaccine Aged Out N o longer eligible based on patient's age to complete this topic Meningococcal B Vaccine Aged Out No l onger eligible based on patient's age to complete this topic RSV Immunization Patients Un leila 20 months Aged Out No longer eligible b ased on patient's age to complete this topic Varicella Vaccines Aged Out No longer eligible based on patient's age to complete this topic Procedures Procedure Name Priority Date/Time Associated Diagnosis Comments COMPREHENSIVE METABOLIC PANEL Routine 01/27/2025 8:08 AM EDT Anemia, unspecified COMPLETE BLOOD COUNT Routine 01/27/2025 8:08 AM EDT Anemia, unspecified from Last 3 Months Results * (ABNORMAL) Complete blood count (01/27/2025 8:08 AM EDT) WBC 4.1(L) 4.8 - 10.8 K/mcL LAB HEMETOLOGY METHOD 01/27/2025 10:20 AM [facility] RBC 3.30(L) 4.50 - 5.50 M/mcL LAB HEMETOLOGY METHOD 01/27/2025 10:20 AM [facility] LAB Hemoglobin 10.0(L) 13.5 - 17.5 g/dL LAB HEMETOLOGY METHOD 01/27/2025 10:20 AM [facility] LAB Hematocrit 30.5(L) 42.0 - 54.0 % LAB HEMETOLOGY METHOD 01/27/2025 10:20 AM [facility] LAB MCV 91.3 79.0 - 98.0 FL LAB HEMETOLOGY METHOD 01/27/2025 10:20 AM [facility] LAB MCH 29.9 27.0 - 32.0 pcg LAB HEMETOLOGY METHOD 01/27/2025 10:20 AM EDT [facility] LAB MCHC 32.8 32.0 - 37.0 g/dL LAB HEMETOLOGY METHOD 01/27/2025 10:20 AM EDT [facility] RDW 15.6(H) 11.0 - 15.0 % LAB HEMETOLOGY METHOD 01/27/2025 10:20 AM EDT [facility] LAB Platelets 373 130 - 400 K/mcL LAB HEMETOLOGY METHOD 01/27/2025 10:20 AM EDT [facility] MPV 9.9 7.0 - 11.0 FL LAB HEMETOLOGY METHOD 01/27/2025 10:20 AM EDT [facility] NRBC 0.0 <1.0 % LAB HEMETOLOGY METHOD 01/27/2025 10:20 AM EDT [facility] NRBC Absolute 0.00 <0.10 K/mcL LAB HEMETOLOGY METHOD 01/27/2025 10:20 AM T [facility] Blood Venous blood specimen / Unknown Venipuncture / Unknown 01/27/2025 8:08 AM EDT 01/27/2025 9:19 AM EDT Jesús German MD LAB BLOOD ORDERABLES Final Result [facility] [address] [place] [address], * (ABNORMAL) Comprehensive metabolic panel (01/27/2025 8:08 AM EDT) Sodium 140 133 - 145 mmol/L LAB CHEMISTRY METHOD 01/27/2025 11:07 AM EDT [facility] Potassium 3.6 3.5 - 5.5 mmol/L LAB CHEMISTRY METHOD 01/27/2025 11:07 AM EDT [facility] Chloride 104 96 - 110 mmol/L LAB CHEMISTRY METHOD 01/27/2025 11:07 AM [facility] CO2 31 21 - 32 mmol/L LAB CHEMISTRY METHOD 01/27/2025 11:07 AM [facility] Anion Gap 5 3 - 11 LAB CHEMISTRY METHOD 01/27/2025 11:07 AM [facility] Glucose 107(H) 70 - 100 mg/dL LAB CHEMISTRY METHOD 01/27/2025 11:07 AM [facility] BUN 12 5 - 25 mg/dL LAB CHEMISTRY METHOD 01/27/2025 11:07 AM [facility] Creatinine 0.51(L) 0.70 - 1.30 mg/dL LAB CHEMISTRY METHOD 01/27/2025 11:07 AM [facility] eGFR 108 >=60 mL/min/1. 73m2 LAB CHEMISTRY METHOD 01/27/2025 11:07 AM [facility] Comment:Calculation based on the??Chronic Kidney Disease Epidemiology Collaboration (CKD-EPI) equation refit??without adjustment for race. BUN/Creatinine Ratio 23.5 LAB CHEMISTRY METHOD 01/27/2025 11:07 AM [facility] Calcium 8.5 8.5 - 10.5 mg/dL LAB CHEMISTRY METHOD 01/27/2025 11:07 AM [facility] AST (SGOT) 37 10 - 42 unit/L LAB CHEMISTRY METHOD 01/27/2025 11:07 AM [facility] ALT (SGPT) 52 10 - 60 unit/L LAB CHEMISTRY METHOD 01/27/2025 11:07 AM [facility] Alkaline Phosphatase 67 42 - 121 unit/L LAB CHEMISTRY METHOD 01/27/2025 11:07 AM [facility] Total Protein 5.7(L) 6.0 - 8.0 g/dL LAB CHEMISTRY METHOD 01/27/2025 11:07 AM [facility] Albumin 3.1(L) 3.2 - 5.0 g/dL LAB CHEMISTRY METHOD 01/27/2025 11:07 AM EDT [facility] Total Bilirubin 0.5 0.0 - 1.4 mg/dL LAB CHEMISTRY METHOD 01/27/2025 11:07 AM EDT [facility] Blood Venous blood specimen / Unknown Venipuncture / Unknown 01/27/2025 8:08 AM EDT 01/27/2025 9:19 AM EDT us Jesús German MD LAB BLOOD ORDERABLES Final Result [facility] [address] [place] [address], from Last 3 Months Insurance [employer] MEDICARE Care Teams Mold Dumper Relationship Specialty Start Date End Date Jesús German MD [address] [place] [id number] PCP - General Internal Medicine 01/27/25
--- OUTSIDE RECORDS SUMMARY | 2025-01-29 09:22 | XMS_ITS | Encounter Summary ---
Author Organization [employer] Address [address] [place] [address] Care Team Providers Care Senior Net Engineer Name Role Phone Jesús German MD Primary Care Provider [phone]- [phone] Encounter Details Date Type Department Care Team (Late st Contact Info) Description 01/27/2025 Lab Requisition [facility] - Main Lab [address] [facility] [place] [address] Jesús German MD [address] [place] [address] Anemia, unspecified Social History Tobacco Use Types Packs/Day Years Used Date Smoking Tobacco: Never Assessed Sex and Gender Information Value Date Recorded Sex Assigned at Not on file Legal Sex Male 9:15 AM EDT Gender Identity Not on file Sexual Orientation Not on file documented as of this encounter Plan of Treatment Not on file documented as of this encounter Procedures Procedure Name Priority Date/Time Associated Diagnosis Comments COMPLETE BLOOD COUNT Routine 01/27/2025 8:08 AM EDT Anemia, unspecified COMPREHENSIVE METABOLIC PANEL Routine 01/27/2025 8:08 AM EDT Anemia, unspecified documented in this encounter Results * (ABNORMAL) Comprehensive metabolic panel (01/27/2025 8:08 AM EDT) Sodium 140 133 - 145 mmol/L LAB CHEMISTRY METHOD 01/27/2025 11:[address] [facility] Potassium 3.6 3.5 - 5.5 mmol/L LAB CHEMISTRY METHOD 01/27/2025 11:[address] [facility] Chloride 104 96 - 110 mmol/L LAB CHEMISTRY METHOD 01/27/2025 11:[address] [facility] CO2 31 21 - 32 mmol/L LAB CHEMISTRY METHOD 01/27/2025 11:[address] [facility] Anion Gap 5 3 - 11 LAB CHEMISTRY METHOD 01/27/2025 11:[address] [facility] Glucose 107(H) 70 - 100 mg/dL LAB CHEMISTRY METHOD 01/27/2025 11:[address] [facility] BUN 12 5 - 25 mg/dL LAB CHEMISTRY METHOD 01/27/2025 11:[address] [facility] Creatinine 0.51(L) 0.70 - 1.30 mg/dL LAB CHEMISTRY METHOD 01/27/2025 11:[address] [facility] eGFR 108 >=60 mL/min/1. 73m2 LAB CHEMISTRY METHOD 01/27/2025 11:[address] [facility] Comment:Calculation based on the??Chronic Kidney Disease Epidemiology Collaboration (CKD-EPI) equation refit??without adjustment for race. BUN/Creatinine Ratio 23.5 LAB CHEMISTRY METHOD 01/27/2025 11:[address] [facility] Calcium 8.5 8.5 - 10.5 mg/dL LAB CHEMISTRY METHOD 01/27/2025 11:[address] [facility] AST (SGOT) 37 10 - 42 unit/L LAB CHEMISTRY METHOD 01/27/2025 11:[address] [facility] ALT (SGPT) 52 10 - 60 unit/L LAB CHEMISTRY METHOD 01/27/2025 11:[address] [facility] Alkaline Phosphatase 67 42 - 121 unit/L LAB CHEMISTRY METHOD 01/27/2025 11:[address] [facility] Total Protein 5.7(L) 6.0 - 8.0 g/dL LAB CHEMISTRY METHOD 01/27/2025 11:[address] [facility] Albumin 3.1(L) 3.2 - 5.0 g/dL LAB CHEMISTRY METHOD 01/27/2025 11:07 AM EDT [facility] Total Bilirubin 0.5 0.0 - 1.4 mg/dL LAB CHEMISTRY METHOD 01/27/2025 11:[address] [facility] Blood Venous blood specimen / Unknown Venipuncture / Unknown 01/27/2025 8:08 AM EDT 01/27/2025 9:19 AM EDT Jesús German MD LAB BLOOD ORDERABLES Final Result [facility] [address] [place] [address], * (ABNORMAL) Complete blood count (01/27/2025 8:08 AM EDT) WBC 4.1(L) 4.8 - 10.8 K/mcL LAB HEMETOLOGY METHOD 01/27/2025 10:[address] [facility] RBC 3.30(L) 4.50 - 5.50 M/mcL LAB HEMETOLOGY METHOD 01/27/2025 10:[address] [facility] Hemoglobin 10.0(L) 13.5 - 17.5 g/dL LAB HEMETOLOGY METHOD 01/27/2025 10:[address] [facility] Hematocrit 30.5(L) 42.0 - 54.0 % LAB HEMETOLOGY METHOD 01/27/2025 10:[address] [facility] MCV 91.3 79.0 - 98.0 FL LAB HEMETOLOGY METHOD 01/27/2025 10:[address] [facility] MCH 29.9 27.0 - 32.0 pcg LAB HEMETOLOGY METHOD 01/27/2025 10:[address] [facility] MCHC 32.8 32.0 - 37.0 g/dL LAB HEMETOLOGY METHOD 01/27/2025 10:20 AM EDT [facility] RDW 15.6(H) 11.0 - 15.0 % LAB HEMETOLOGY METHOD 01/27/2025 10:20 AM EDT [facility] Platelets 373 130 - 400 K/mcL LAB HEMETOLOGY METHOD 01/27/2025 10:20 AM EDT [facility] MPV 9.9 7.0 - 11.0 FL LAB HEMETOLOGY METHOD 01/27/2025 10:20 AM EDT [facility] NRBC 0.0 <1.0 % LAB HEMETOLOGY METHOD 01/27/2025 10:20 AM EDT [facility] NRBC Absolute 0.00 <0.10 K/mcL [facility] 01/27/2025 10:20 AM EDT [facility] Blood Venous blood specimen / Unknown Venipuncture / Unknown 01/27/2025 8:08 AM EDT 01/27/2025 9:19 AM EDT us Jesús German MD LAB BLOOD ORDERABLES Final Result [facility] [address] [place] [address], documented in this encounter Visit Diagnoses Diagnosis Anemia, unspecified documented in this encounter Care Teams Senior Net Engineer Relationship Specialty Start Date End Date Jesús Gemran MD [address] [place] [address] PCP - General Internal Medicine 01/27/25 documented as of this encounter
--- OUTSIDE RECORDS SUMMARY | 2025-01-29 09:22 | XMS_ITS | Patient Health Record ---
Author Organization [facility] Address [address] [place] [address] Care Team Providers Care Strategic Partner Development Manager Name Role Phone MARCUS YANES Primary Care Provider Soy Moura Jr Unavailable Allergies Allergen (clinical drug ingredient) Drug/Non Drug Allergy documented on EMR Reaction Allergy Type Onset Date Status Penicillin Unknown Drug Allergy Active amoxicillin Amoxicillin Unknown Drug Allergy Act glenn Results Component Value Reference Range Notes Pathology (Not yet reviewed by provider) Interpretation: Performing Lab:[facility], [address] [place] [address] Notes/Report: Name: Delia Valdivia Age/Sex: 69/M : 1955 Unit#: [id number] Attend Dr: Vannesa Maynard MD Re01/17/25 Status : DIS IN Location: [facility] 444-1 Disch: 01/24/25 SPEC : [id number] RECD : 01/26/25 STATUS: JOEY HUGGINS NUM: [id number] [place]: 01/23/[address] [facility] [address]: Delia Portillo MD ENTERED: 01/26/25 37 SP TYPE: Surgical OTHR DR: Vannesa Maynard MD,Marcus Palacios [facility]- ORDERED: HE Stain/6, Gross Micro L4/2, IHC, Special st. 2/2, H. pylori, AB/PAS/2 Diagnosis A. Stomach, antrum, biopsy: Gastric antral mucosa with mild chronic inactive gastritis; negative for Helicob acter pylori, intestinal metaplasia and dysplasia. B. Esophagus, 26-36 cm, biopsy: Active erosive esophagitis and intestinal metaplasia consistent with Larios ett's esophagus; negative for dysplasia (see comment). COMMENT (B): These f indings are consistent with Rodriguez's esophagus if the biopsies were taken above the paola omic gastroesophageal junction. Clinical and endoscopic correlation is advised. Ancillar y studies for HSV and CMV are ordered and results will be reported in an addendum. Clinical History Pre-Op Dx: Nausea/vomiting Post-Op Dx: Erosive esophagitis, portal gastropathy Microscopic Description A-B. Microscopic sec tions examined. No metaplastic changes are seen, supported by AB/PAS stains (A); intestin al metaplasia is highlighted by AB/PAS on B; no Helicobacter organisms are seen, supported by H. pylori immunostain (A). Material Received A. Gastric antrum bx B. Bx esophagus 26-3 6 cm, r/o Rodriguez's esophagus, viral esophagitis Gross Description Received in two parts. Part A: Received in formalin labeled gastric antrum bx? are 3 durbin irregular and rectangular tissue f ragments ranging from 0.2-0.4 cm, submitted in toto in a cassette labeled A. Part B: Received in formalin labeled bx esophagus 26-36 cm? are 4 durbin irregular tissue fragments ranging fr om 0.1-0.25 cm, submitted in toto in a cassette labeled B. CEDS Special stains order ed and performed: AB/PAS on A-B; immunostain for H. pylori on A. CONTINUED ON NEXT PAGE Name: Delia Valdivia Age/Sex: 69/M : 1955 Unit#: [id number] Attend Dr: Vannesa Maynard MD Re01/17/25 Status : DIS IN Location: [facility] 444-1 Disch: 01/24/25 SPEC : [id number] RECD : 01/26/25 STATUS: JOEY HUGGINS NUM: [id number] [place]: 01/23/25-[address] [facility] [address]: Delia Portillo MD ENTERED: 01/26/25-08 37 SP TYPE: Surgical OTHR DR: Vannesa Maynard MD, [facility] ORDERED: HE Stain/6, Gross Micro L4/2, IHC, Special st. 2/2, H. pylori, AB/PAS/2 Copies To: Vannesa Maynard MD [address] [place] [address] [phone] Marcus Yanes [facility] Primary [facility], [place] [address] [place], [place] [phone] Delia Portillo MD [facility] [address] [place] [address] Signed (si gnature on file) Sophia Vidal MD 01/27/25 1240 END OF REPORT Reason For Referral No Information Medications Medication SIG (Take, Route, Frequency, Duration) Notes Start Date End Date Status MiraLax (colon prep) 17 GM/SCOOP mixed with Gatorade or Crystal Light Orally begin at 5:00 p.m. the day before the procedure for 1 day 01/22/2023 Active Immunizations Vaccine Route Administration Date Status Comme nts Influenza Unknown 01/22/2023 Refused Problems Problem Type SNOMED Code ICD Code Onset Dates Problem Status W/U Status Risk Notes Problem 321600737 Colon cancer screening (Z12.11) Active confirmed Problem 815273495 Gastro-esophagea l reflux disease without esophagitis (K21.9) Active confirmed Problem History of polyp of colon (situation) (122251151) Personal history of colonic polyps (Z86.010) Active confirmed Problem 10822304 Abdominal pain, epigastric (R10.13) Active confirmed Plan Of Treatment Pending Test Test Name Order Date Pathology 01/23/2025 Future Test Test Name Order Date COLONOSCOPY 12/30/2015 COLONOSCOPY 01/22/2023 Next Appt Details Provider Name:Soy elias Jr, 04/16/2025 02:55:00 PM, [address] [place] [address], [address], [place], [address], Insurance Providers Payer Name Payer Address Payer Phone Subscriber Number Group Number Insured Name Patient Relationship to Insured Coverage Start Date Coverage End Date [facility] Medicare Advantage Plan [address] [address] [place] [address] [phone] [id number] DELIA VALDIVIA Self - patient is the insured Medical (General) History Medical History History ICD Code colonoscopy 04/05/16, normal, five-year followup due to history of tubular adenomas. Gastroesophageal reflux disease Hemorrhoids pneumonia 2014 Hyponatremia Surgical History Surgery Date(Month/Year) Tonsillectomy foot left /infection age 19
--- OUTSIDE RECORDS SUMMARY | 2025-01-29 09:22 | XMS_ITS | Clinical Summary ---
Author Organization [facility] Facility Address [address] [address] Care Team Providers Care Elementary Librarian Name Role Phone Oral Yanes NP Primary Care Provider [phone] Allergies Active Allergy Reactions Criticality Noted Date [...] Colorectal Cancer Screening: Sigmoidoscopy 2002 Pneumococcal Vaccine: 50+ Ye ars (1 of 1 - PCV) 2003 Influenza Vaccine (Season Ended) 2025 Hepatitis B Vaccine Aged Out No longe r eligible based on patient's age to complete this topic Insurance Medicare Medicare Care Teams Elementary Librarian Relationship Specialty Start Date End Date Oral Yanes NP [address] [place] [address] PCP - General Nurse Practitioner 02/03/21
== END 2025-01-29 10:02 | disposition home or self-care (01) ==
LOC: HO.HMCC 08:57
PROVIDERS: PCP Nurse Practitioner Family; Visit Provider Nurse Practitioner Family
DX: F10.90 Alcohol use, unspecified, uncomplicated (principal); I10 Essential (primary) hypertension; F10.929 Alcohol use, unspecified with intoxication, unspecified; D62 Acute posthemorrhagic anemia; K22.10 Ulcer of esophagus without bleeding

== ENCOUNTER → 2025-01-29 08:57 | Outpatient (BNVA) | payer MEDICARE, SELFPAY | PROVIDERS: PCP Nurse Practitioner Family; Visit Provider Nurse Practitioner Family | DX: I10 Essential (primary) hypertension (principal); D62 Acute posthemorrhagic anemia; K22.10 Ulcer of esophagus without bleeding; F10.929 Alcohol use, unspecified with intoxication, unspecified | CPT/HCPCS: 96127; 99212 ==

== ENCOUNTER 2025-07-01 08:48 | Outpatient (REF) | payer MEDICARE, SELFPAY ==
[2025-07-01 10:37] LABS: MANUAL DIFF FLAG NO
[2025-07-01 10:48] LABS: Hematocrit 44.6 % (42.0-52.0); Hemoglobin 15.0 g/dl (14.0-18.0); Imm Gran Abs Auto 0.01 X10*3/uL (0.00-0.03); Imm Gran Pct Auto 0.2 % (0.0-0.4); Lymphocytes Absolute Auto 2.3 X10*3/uL (1.2-4.9); Mean Corpuscular HGB Conc 33.6 g/dl (31.0-36.0); Mean Corpuscular Hemoglobin 29.0 pg (27.0-33.0); Mean Corpuscular Volume 86.1 fL (80.0-98.0); NRBC Abs Auto 0.000 X10*3/uL (0.0-0.012); NRBC Pct Auto 0.0 /100WBC (0.0-0.2); Platelet Count 249 X10*3/uL (160-400); Red Blood Count 5.18 X10*6/uL (4.60-5.80); White Blood Count 5.4 X10*3/uL (4.8-10.8)
[2025-07-01 11:00] LABS: Appearance Urine Clear; Glucose Urine UA Negative (Negative); PH 6.5 (5.0-9.0); Specific Gravity - Urine 1.015 (1.005-1.025)
[2025-07-01 11:15] LABS: Alanine Aminotransferase 22 U/L (0-40); Albumin Level 4.4 g/dL (3.5-5.0); Alkaline Phosphatase 64 U/L (39-117); Anion Gap 13 (12-20); Aspartate Amino Transferase 28 U/L (5-37); Blood Urea Nitrogen 24 mg/dL (9-16); Calcium 9.6 mg/dL (8.4-10.2); Carbon Dioxide 25 mmol/L (22-29); Chloride 102 mmol/L (96-108); Cholesterol 196 mg/dL (<200); Estimated Glomerular Filt Rate > 60; HDL Cholesterol 42 mg/dL (>40); Potassium 4.4 mmol/L (3.3-5.1); Sodium 136 mmol/L (135-145); Total Protein 7.0 g/dL (6.5-8.0); Triglycerides 93 mg/dL (<150)
== END 2025-07-01 08:49 | disposition home or self-care (01) ==
LOC: HO.HMGCLDS 08:48
PROVIDERS: PCP Nurse Practitioner Family; Visit Provider Nurse Practitioner Family
DX: I10 Essential (primary) hypertension (principal); K22.10 Ulcer of esophagus without bleeding; F10.929 Alcohol use, unspecified with intoxication, unspecified; D62 Acute posthemorrhagic anemia
CPT/HCPCS: 36415; 80053; 80061; 81003; 84443; 85025

== ENCOUNTER 2025-07-09 10:05 | Outpatient (AMB) | payer MEDICARE, SELFPAY ==
--- OUTSIDE RECORDS SUMMARY | 2025-04-16 10:55 | XMS_ITS ---
Author Organization [facility] Address [address] [place] [phone] Care Team Providers Care Demand Planning Analyst Name Role Phone MARCUS HARKINS Primary Care Provider Soy Moura Jr REASON FOR VISIT Patient presents today for erosive esophagitis Encounters Encounter Location Date Provider Diagnosis [facility] [address] [place] [phone] 04/16/2025 Soy Ordaz Jr Plan Of Treatment No Information Progress Notes * DELIA VALDIVIADOB: 4 (69 yo M)Acc No.[id number]:04/16/2025 Progress Notes Patient: DELIA IVAN Provider: Britt Ordaz MD :1955 A ge:69 Y S ex:Male Date:04/16/2025 Address:[address] [place], [place] [id number] Pcp:MARCUS HARKINS Subjective: * Chief Complaints: * 1 . Patient presents today for erosive esophagitis. * Medical History: Objective: * Vitals: Assessment: Plan: * Treatment: * * The named appointment provid er may or may not be the originator of this progress note, and it is not deemed complete until electronically signed by the appointment provider. Sign off status: Pending * Provider: Britt Ordaz MD Date: 0 04/16/2025 Generated for Abdulazizi ng/Faxing/eTransmitting on: 1 12:08 PM EDT
[2025-07-09 10:15] VITALS: BP 150/98; PULSE 93; RESP 16; O2SAT 97
--- NOTE | 2025-07-09 10:15 | A.OFFPC_ITS ---
Vital Signs 07/09/25 10:15 07/09/25 12:35 Weight 182 lb BP 150/98 H 136/90 H Blood Pressure Location Lt brachial Position Sitting Respiration 16 Pulse 93 Pulse Source Pulse Oximeter Pulse Oximetry (%) 97 Oxygen Delivery Method Room Air Intake Visit Reasons: 4m follow up reschedule Migration Agent Required: No Accompanied by: Self / Same As Patient Allergies amoxicillin (AMOXICILLIN) Allergy (Unknown, Verified 07/09/25 10:17) UNKNOWN, nausea and vomiting penicillin V Allergy (Unknown, Verified 07/09/25 10:17) rash Penicillins (PENICILLINS) Allergy (Unknown, Verified 07/09/25 10:17) UNKNOWN Erythromycin Allergy (Unknown, Uncoded 01/17/25 12:29) Rash Tobacco use date assessed: 07/09/25 Fall risk assessment: No Falls in past year Last assessed Fall Risk: 07/09/25 Dental Screening Dental Screen Date: 07/09/25 Did you have a dental visit in the last 12 months?: Yes Did you have a dental problem in the last 6 months where you did not have access to dental care?: No Was dental information given to patient?: Patient declined HPI 4m follow up reschedule HPI Details Chief Complaint The patient presents for a follow-up to discuss laboratory results. History of Present Illness The patient is a 69-year-old male presenting with a follow-up to review laboratory results. He has a history of elevated LDL cholesterol, currently measured at 136 mg/dL, which is slightly above the desired range. The patient h as been advised to modify his diet to address this issue, with plans to repeat the test in two months. The patient also has a history of hypertension, with blood pressure readings at home typically in the 130s over 70s to low 80s. He experiences white coat syndrome, which may contribute to elevated readings in clinical settings. He denies any chest pain, dyspnea, abdominal pain, hematochezia, headaches, blurred vision, or dizziness. pt is no longer consuming alcohol and it shows in his labs Social History - Alcohol use: The patient is no longer consuming alcohol. Health Maintenance - Diet modification recommended to manag e elevated LDL cholesterol. Review of Systems - Cardiovascular: Denies chest pain. - Respiratory: Denies dyspnea. - Gastrointestinal: Denies abdominal owen n and hematochezia. - Neurological: Denies headaches, blurre d vision, and dizziness. Physical Exam General: Cooperative, healthy appearing, comfortable, no acute distress and well developed Orientation: Patient oriented x3 Limitations: No limitations Head: Normal to inspection Ears: Hearing grossly normal bilaterally Nose: Normal external nose present Face and sinus: Normal facial exam Eyes: Appearance normal, both eyes and all related structures Neck: Normal visual inspection and Yes full ROM Respiratory: Normal respiratory effort and able to speak in complete sentences. Clear to auscultation bilaterally Cardiovascular: Regular rate and rhythm. Normal S1 and S2 GI: Normal to inspection. Soft to palpation and nontender Skin: No rashes or lesions noted Neuro: Patient oriented x3 Extremities: Normal to inspection Results - Labs: LDL cholesterol elevated at 136 mg/dL. Plan 1. Hyperlipidemia The patient's LDL cholesterol is elevated at 136 mg/dL, indicating hyperlipidemia. Dietary modifications have been recommended to help reduce LDL levels, and a follow-up lipid panel is planned in two months to assess progress. 2. Essential Hypertension The patient has a history of hypertension with home blood pressure readings in the 130s over 70s to low 80s. He experiences white coat syndrome, which may affect clinical readings. Continued monitoring of blood pressure at home is advised. Discussion Notes I discussed with the patient the importance of dietary changes to manage his elevated LDL cholesterol and the plan to repeat the lipid panel in two months. We also reviewed his blood pressure management, acknowledging the impact of white coat syndrome and the importance of home monitoring. Patient Instructions - Follow a heart-healthy diet to help lo wer LDL cholesterol. - Continue monitoring blood pressure at home regularly. - Return for a follow-up visit in two mo [facility] for repeat lipid panel. [facility] Medical History Alcohol use disorder Barretts esophagus Gastropathy Foot infection Pneumonia Hemorrhoids Alcohol abuse Acute hyponatremia GERD (gastroesophageal reflux disease) Asthma Surgical History Hx of tonsillectomy H/O colonoscopy Social History Household Members: None Housing: House Do you presently have visiting nurse or other home services: No Alcohol intake: current Alcohol intake frequency: former alcohol drinker Alcohol type: wine Comment: for impulsivity - camera applied - pt agreeable, aware:right to refuse Patient Tobacco Use Status: Never used Tobacco e-Cigarette/Vaping Use: Never Used Second Hand Smoke Exposure: No Advance Directives Date on File: 01/26/21 service: No Current occupational status: employed Current occupational exposures/hazards: No Cognitive needs: No Hearing needs: No Vision needs: No Questionnaire PHQ-9 Over the last 2 weeks, how often have you been bothered by any of the following problems? 1. Little interest or pleasure in doing things: not at all 2. Feeling down, depressed, or hopeless: not at all 3. Trouble falling or staying asleep, or sleeping too much: not at all 4. Feeling tired or having little energy: not at all 5. Poor appetite or overeating: not at all 6. Feeling bad about yourself - or that you are a failure or have let yourself or your family down: not at all 7. Trouble concentrating on things, such as reading the newspaper or watching television: not at all 8. Moving or speaking so slowly that other people could have noticed. Or the opposite - being so fidgety or restless that you have been moving around a lot more than usual: not at all 9. Thoughts that you would be better off or of hurting yourself in some way: not at all Total score: 0 Depression Screening Interpretation: Negative Depression Screening Done: Yes 83926 - PHQ-9 Billing: Yes Source: Developed by Drs. Gene Bentley, Jayla Real, Duane Tyson and colleagues, with an educational henry from [employer]. Thrive Questionnaire Date Thrive assessed: 01/29/25 I am a: Patient What is your living situation today?: I have a steady place to live Within the past 12 months, did the food you bought not last and you didn't have the money to get more?: Never true Within the past 12 months, did you worry whether your food would run out before you got money to buy more?: Never true Do you have trouble paying for medicines?: No Do you have trouble getting transportation to medical appointments?: No Do you have trouble paying your heating and electricity bill?: No Do you have trouble taking care of your child, family member or friend?: No Do you have trouble with day-to-day activities such as bathing, preparing meals, shopping, managing finances, etc.?: No Are you currently unemployed and looking for a job?: No Are you interested in more education?: No Please select the resources that you would like help with: None Currently or been in a relationship where the following occur: No concerns reported THRIVE Score: 0 AUDIT C Alcohol Use Questionnaire (AUDIT-C) 1. How often do you have a drink containing alcohol?: Never Total Score: 0 KATRIN-7 AMB Questionnaire KATRIN-7 Date KATRIN - 7 assessed: 07/09/25 Feeling nervous, anxious, or on edge: 0 = Not at all Not being able to stop or control worryin = Not at all Worrying too much about different things: 0 = Not at all Trouble relaxin = Not at all Being so restless that it is hard to sit still: 0 = Not at all Becoming easily annoyed or irritable: 0 = Not at all Feeling afraid as if something awful might happen: 0 = Not at all Total KATRIN-7 score (0-4 normal; 5-9 mild; 10-14 moderate; 15-21 severe): 0 Source: Developed by Drs. Gene Bentley, Jayla Real, Duane Tyson and colleagues, with an educational henry from [employer]. KATRIN-7 Assessment Billing KATRIN-7 Assessment Tool: KATRIN-7 Assessment 06662 Physical exam (Primary Care) Vital Signs: Last Vital Signs Pulse 93 07/09/25 10:15 Resp 16 07/09/25 10:15 BP 150/98 H 07/09/25 10:15 Pulse Ox 97 07/09/25 10:15 Oxygen Delivery Method Room Air 07/09/25 10:15 Tobacco/Smoking Status: Tobacco use Status Tobacco use date assessed 07/09/25 07/09/25 10:18 Patient Tobacco Use Status Never used Tobacco 07/09/25 10:18 e-Cigarette/Vaping Use Never Used 07/09/25 10:18 PHQ-9: PHQ-9 Score PHQ-9: Total score 0 07/09/25 10:18 Depression Screening Interpretation: Negative Thrive Assessment: Date of Thrive Assessment Date Thrive assessed 01/29/25 07/09/25 10:18 Currently or been in a relationship where the following occur: No concerns reported Coding Level of Care Code Est Pt Level 3 (31818) Diagnoses Dyslipidemia E78.5 Screening PSA (prostate specific antigen) Z12.5 Additional Codes KATRIN-7 Assessment Billing - KATRIN-7 Assessment Tool: KATRIN-7 Assessment 45982 ([id number]) PHQ-9 - 44793 - PHQ-9 Billing: Yes ([id number]) Assessment & Plan Assessment & Plan (1) Dyslipidemia: Code(s): E78.5 - Hyperlipidemia, unspecified Category: Medical (2) Screening PSA (prostate specific antigen): Code(s): Z12.5 - Encounter for screening for malignant neoplasm of prostate Category: Medical Plan . Orders: Orders Lipid Panel 2 Months E78.5 - Hyperlipidemia, unspecified Comprehensive [place]. Panel Fast 2 Months E78.5 - Hyperlipidemia, unspecified Prostate Specific Antigen Scr Today Z12.5 - Encounter for screening for malignant neoplasm of prostate
--- OUTSIDE RECORDS SUMMARY | 2025-07-09 12:08 | XMS_ITS | Encounter Summary ---
Author Organization [facility] Address [address] [place] [address] Care Team Providers Care Refrigerator Cabinetmaker Name Role Phone Jesús German MD Primary Care Provider [phone]- [phone] Encounter Details Date Type Department Care Team (Late st Contact Info) Description 01/27/2025 Lab Requisition [facility] - Main Lab 299 Counts Include [address] [facility] [employer] [place] [place] [address] Jesús German MD [address] [place] [id number] Anemia, unspecified Social History Tobacco Use Types [...] mmol/L LAB CHEMISTRY METHOD 01/27/2025 11:07 AM [facility] Potassium 3.6 3.5 - 5.5 mmol/L LAB CHEMISTRY METHOD 01/27/2025 11:07 AM [facility] Chloride 104 96 - 110 mmol/L LAB CHEMISTRY METHOD 01/27/2025 11:07 AM [facility] CO2 31 21 - 32 mmol/L LAB CHEMISTRY METHOD 01/27/2025 11:07 AM [facility] Anion Gap 5 3 - 11 LAB CHEMISTRY METHOD 01/27/2025 11:07 AM [facility] Glucose 107(H) 70 - 100 mg/dL LAB CHEMISTRY METHOD 01/27/2025 11:07 AM [facility] BUN 12 5 - 25 mg/dL LAB CHEMISTRY METHOD 01/27/2025 11:07 AM [facility] Creatinine 0.51(L) 0.70 - 1.30 mg/dL LAB CHEMISTRY METHOD 01/27/2025 11:07 AM [facility] eGFR 108 >=60 mL/min/1. 73m2 LAB CHEMISTRY METHOD 01/27/2025 11:07 AM [facility] Comment:Calculation based on the Chronic Kidney Disease Epidemiology Collaboration (CKD-EPI) equation refit without adjustment for race. BUN/Creatinine Ratio 23.5 LAB CHEMISTRY METHOD 01/27/2025 11:07 AM [facility] Calcium 8.5 8.5 - 10.5 mg/dL LAB CHEMISTRY METHOD 01/27/2025 11:07 AM [facility] AST (SGOT) 37 10 - 42 unit/L LAB CHEMISTRY METHOD 01/27/2025 11:07 AM [facility] ALT (SGPT) 52 10 - 60 unit/L LAB CHEMISTRY METHOD 01/27/2025 11:07 AM [facility] Alkaline Phosphatase 67 42 - 121 unit/L LAB CHEMISTRY METHOD 01/27/2025 11:07 AM [facility] Total Protein 5.7(L) 6.0 - 8.0 g/dL LAB CHEMISTRY METHOD 01/27/2025 11:07 AM [facility] Albumin 3.1(L) 3.2 - 5.0 g/dL LAB CHEMISTRY METHOD 01/27/2025 11:07 AM EDT [facility] Total Bilirubin 0.5 0.0 - 1.4 mg/dL LAB CHEMISTRY METHOD 01/27/2025 11:07 AM [facility] Blood Venous blood specimen / Unknown Venipuncture / Unknown 01/27/2025 8:08 AM EDT 01/27/2025 9:19 AM EDT Jesús German MD LAB BLOOD ORDERABLES Final Result [facility] [address] [place] [address], * (ABNORMAL) Complete blood count (01/27/2025 8:08 AM EDT) WBC 4.1(L) 4.8 - 10.8 K/mcL LAB HEMETOLOGY METHOD 01/27/2025 10:20 AM [facility] RBC 3.30(L) 4.50 - 5.50 M/mcL LAB HEMETOLOGY METHOD 01/27/2025 10:20 AM [facility] Hemoglobin 10.0(L) 13.5 - 17.5 g/dL LAB HEMETOLOGY METHOD 01/27/2025 10:20 AM [facility] Hematocrit 30.5(L) 42.0 - 54.0 % LAB HEMETOLOGY METHOD 01/27/2025 10:20 AM [facility] MCV 91.3 79.0 - 98.0 FL LAB HEMETOLOGY METHOD 01/27/2025 10:20 AM [facility] MCH 29.9 27.0 - 32.0 pcg LAB HEMETOLOGY METHOD 01/27/2025 10:20 AM [facility] MCHC 32.8 32.0 - 37.0 g/dL LAB HEMETOLOGY METHOD 01/27/2025 10:20 AM EDT [facility] RDW 15.6(H) 11.0 - 15.0 % LAB HEMETOLOGY METHOD 01/27/2025 10:20 AM EDT [facility] Platelets 373 130 - 400 K/mcL LAB HEMETOLOGY METHOD 01/27/2025 10:20 AM EDT [facility] MPV 9.9 7.0 - 11.0 FL LAB HEMETOLOGY METHOD 01/27/2025 10:20 AM EDT [facility] NRBC 0.0 <1.0 % LAB HEMETOLOGY METHOD 01/27/2025 10:20 AM EDT [facility] NRBC Absolute 0.00 <0.10 K/mcL LAB HEMETOLOGY METHOD 01/27/2025 10:20 AM EDT [facility] Blood Venous blood specimen / Unknown Venipuncture / Unknown 01/27/2025 8:08 AM EDT 01/27/2025 9:19 AM EDT Jesús German MD LAB BLOOD ORDERABLES Final Result [facility] [address] [place] [address], documented in this encounter Visit Diagnoses Diagnosis Anemia, unspecified documented in this encounter Care Teams Refrigerator Cabinetmaker Relationship Specialty Start Date End Date Jesús German MD [address] [place] [address] PCP - General Internal Medicine 01/27/25 documented as of this encounter
--- OUTSIDE RECORDS SUMMARY | 2025-07-09 12:08 | XMS_ITS | Encounter Summary ---
Author Organization [facility] Address [address] [place] [address] Care Team Providers Care Brand Mgr Name Role Phone Jesús German MD Primary Care Provider +1- [phone] Encounter Details Date Type Department Care Team (Late st Contact Info) Description 02/02/2025 Lab Requisition [facility] - Main Lab [address] [facility] [place] [address] Jesús German MD [address] [place] [id number] Anemia, unspecified Social History Tobacco Use Types Packs/Day Years Used Date Smoking Tobacco: Never Assessed Sex and Gender Information Value Date Recorded Sex Assigned at Not on file Legal Sex Male 9:15 AM EDT Gender Identity Not on file Sexual Orientation Not on file documented as of this encounter Plan of Treatment Not on file documented as of this encounter Visit Diagnoses Diagnosis Anemia, unspecified documented in this encounter Care Teams Brand Mgr Relationship Specialty Start Date End Date Jesús German MD [address] [place] [address] [phone] PCP - General Internal Medicine 01/27/25 documented as of this encounter
--- OUTSIDE RECORDS SUMMARY | 2025-07-09 12:09 | XMS_ITS | Clinical Summary ---
Author Organization [address] [facility] Address [address] [place] [address] Phone Care Team Providers Care Nylon Mender Name Role Phone Jesús German MD Primary Care Provider +1- [phone] Social History Tobacco Use Types Packs/Day Years Used Date Smoking Tobacco: Never Assessed Sex and Gender Information Value Date Recorded Sex Assigned at Not on file Legal Sex Male 9:15 AM EDT Gender Identity Not on file Sexual Orientation Not on file Plan of Treatment Health Maintenance Due Date Last Done Comments Colorectal Cancer Screening: Colonoscopy 1955 DTaP,Tdap,and Td Vaccines (1 - Tdap) 1972 Pneumococcal Vaccine: 50+ Ye ars (1 of 1 - PCV) 2003 Zoster Vaccines (1 of 2) 2003 Depression Screening 09/24/2024 Abdominal Aortic Aneurysm (A AA) Screen 01/27/2025 Cholesterol Screening (Lipid Panel) 01/27/2025 Falls Risk Assessment 01/27/2025 Hepatitis C Screening 01/27/2025 Medicare Annual Wellness Visit 01/27/2025 Social Influencers of Health Screening 01/27/2025 COVID-19 Vaccine ( - 2023-2 5 season) 2025 Influenza Vaccine (#1) 2025 RSV Immunization Adult Patie nts (1 [...] patient's age to complete this topic Insurance [employer] MEDICARE Care Teams Nylon Mender Relationship Specialty Start Date End Date Jesús German MD [address] [place] [address] [phone] PCP - General Internal Medicine 01/27/25
--- OUTSIDE RECORDS SUMMARY | 2025-07-09 12:09 | XMS_ITS | Patient Health Record ---
Author Organization [facility] Address [address] [place] [id number] Care Team Providers Care Weighter Name Role Phone MARCUS HARKINS Primary Care Provider Soy Moura Jr Unavailable [phone] Allergies Allergen (clinical drug ingredient) Drug/Non Drug Allergy documented on EMR Reaction Allergy Type Onset Date Status Penicillin Unknown Drug Allergy Active amoxicillin Amoxicillin Unknown Drug Allergy Act glenn Results Component Value Reference Range Notes Pathology (Not yet reviewed by provider) Interpretation: Performing Lab:[facility], [address] [place] [phone] Notes/Report: Reason For Referral No Information Medications Medication SIG (Take, Route, Frequency, Duration) Notes Start Date End Date Status MiraLax (colon prep) 17 GM/SCOOP mixed with Gatorade or Crystal Light Orally begin at 5:00 p.m. the day before the procedure; Duration: 1 day 01/22/2023 Active Immunizations Vaccine Route Administration Date Status Comme nts Influenza Unknown 01/22/2023 Refused Problems Problem Type SNOMED Code ICD Code Onset Dates Problem Status W/U Status Risk Notes Problem Colon cancer screening (081591187) Colon cancer screening (Z12.11) Active confirmed Problem Gastro-esophagea l reflux disease without esophagitis (494299910) Gastro-esophage al reflux disease without esophagitis (K21.9) Active confirmed Problem History of polyp of colon (situation) (948289730) Personal history of colonic polyps (Z86.010) Active confirmed Problem Epigastric pain (19780175) Abdominal pain, epigastric (R10.13) Active confirmed Encounters Encounter Location Date Provider Diagnosis [facility] [address] [place] [phone] 04/09/2025 Soy Ordaz Jr Plan Of Treatment Pending Test Test Name Order Date Pathology 01/23/2025 Future Test Test Name Order Date COLONOSCOPY 12/30/2015 COLONOSCOPY 01/22/2023 Insurance Providers Payer Name Payer Address Payer Phone Subscriber Number Group Number Insured Name Patient Relationship to Insured Coverage Start Date Coverage End Date [employer] Medicare Advantage Plan [address] [address] [place] [address] [id number] DELIA VALDIVIA Self - patient is the insured Medical (General) History Medical History History ICD Code colonoscopy 04/05/16, normal, five-year followup due to history of tubular adenomas. Gastroesophageal reflux disease Hemorrhoids pneumonia 2014 Hyponatremia Surgical History Surgery Date(Month/Year) Tonsillectomy foot left /infection age 19
[2025-07-09 12:35] VITALS: BP 136/90
== END 2025-07-09 11:10 | disposition home or self-care (01) ==
LOC: HO.HMCC 10:06
PROVIDERS: PCP Nurse Practitioner Family; Visit Provider Nurse Practitioner Family
DX: E78.5 Hyperlipidemia, unspecified (principal); Z12.5 Encounter for screening for malignant neoplasm of prostate

== ENCOUNTER → 2025-07-09 10:05 | Outpatient (BNVA) | payer MEDICARE, SELFPAY | PROVIDERS: PCP Nurse Practitioner Family; Visit Provider Nurse Practitioner Family | DX: I10 Essential (primary) hypertension (principal); E78.5 Hyperlipidemia, unspecified | CPT/HCPCS: 96127; 99212 ==